=== PATIENT | female | born 1930 | race Caucasian/White ===

== ENCOUNTER 2018-07-13 06:42 | Inpatient (IN) ==
[2018-07-13] MEDS ORDERED: Sod Chloride 0.9% Inj 1,000 ML IV.CONT SCH (06:45)
[2018-07-13] MEDS ORDERED: Pantoprazole Inj 80 MG in Sodium Chlor 0.9% Inj 100 ML IV.CONT SCH (07:00)
--- NOTE | 2018-07-13 07:08 | ED ---
HPI General Chief Complaint: Altered Mental Status Stated Complaint: AMS/Stroke Alert Time Seen by Provider: 07/13/18 06:44 Source: family, EMS and old records reviewed Mode of arrival: EMS Limitations: altered mental status History of Present Illness HPI Narrative: Patient apparently lives with daughter, she last saw patient normal around 5:00 PM yesterday. Patient this morning was non-conversive, able to follow directions however unable to speak, also has apparent lateralizing weakness as well that is new....per ems normal glucose 84?? Onset (ago): unknown Timing confirmed by: family member Location: speech History of same: No Severity: severe Relieving factors: none Exacerbating factors: none Associated symptoms: weakness (rle) Treatments Prior to Arrival: none Related Data Allergies Allergy/AdvReac Type Severity Reaction Status Date / Time diatrizoate meglumine Allergy Severe Hives Unverified 07/08/17 01:49 gadobenic acid Allergy Severe Hives Unverified 07/08/17 01:49 gadodiamide Allergy Severe Hives Unverified 07/08/17 01:49 gadoteridol Allergy Severe Hives Unverified 07/08/17 01:49 iodixanol Allergy Severe Hives Unverified 07/08/17 01:49 iohexol Allergy Severe Hives Unverified 07/08/17 01:49 hydrocortisone Allergy Intermediate HIVES Unverified 07/08/17 01:49 Review of Systems ROS: all other systems reviewed are negative PMFSH History History Provided By: Patient Medical History Medical History Diabetes (Acute) ICD (implantable cardioverter-defibrillator) in place (Acute) Pacemaker (Acute) Surgical history unknown (Acute) Exam Narrative Exam Narrative: GENERAL: Elderly female SKIN: Warm and dry. HEAD: Atraumatic. Normocephalic. EYES: Pupils equal and round. No scleral icterus. No injection or drainage. ENT: No nasal bleeding or discharge. Mucous membranes pink and moist. NECK: Trachea midline. No JVD. CARDIOVASCULAR: Regular rate and rhythm. no rubs or gallops RESPIRATORY: No accessory muscle use. Clear to auscultation. Breath sounds equal bilaterally. GASTROINTESTINAL: Abdomen soft, non-tender, nondistended. No rebound or guarding MUSCULOSKELETAL: Extremities without clubbing, cyanosis, or edema. No obvious deformities. NEUROLOGICAL: Awake, initially came in with global mutism, but upon return from CT patient was able to answer questions although in a slow and slurred manner. Speech is still intelligible definitely appropriate but moderate to severe slurred speech with moderate aphasia . No obvious cranial nerve deficits. Left upper left lower and right upper extremity although globally weak still able to lift against gravity unable to maintain him upright without drift, however, right lower extremity has increased weakness patient is having very difficult time just barely elevating it off the gurney. PSYCHIATRIC: Appropriate mood and affect; insight and judgment normal. Course Initial Documented Vital Signs Pulse Rate 82 07/13/18 06:45 Respiratory Rate 17 07/13/18 06:45 Pulse Oximetry 97 07/13/18 06:45 Last Documented Vital Signs Pulse Rate 82 07/13/18 06:45 Respiratory Rate 17 07/13/18 06:45 Pulse Oximetry 97 07/13/18 06:45 Critical Care Time Critical Care Time: Yes Total Critical Care Time: 45 Attestation: Aggregate critical care time was 45 minutes. Time to perform other separately billable procedures was not included in the critical care time. My time did not include minutes spent treating any other patients simultaneously or on activities that did not directly contribute to the patient's treatment. The services I provided to this patient were to treat and/or prevent clinically significant deterioration due to stroke symptoms I provided critical care services requiring my management, as noted below: Chart data review, documentation time, medication orders and management, vital sign assessments/reviewing monitor data, ordering and reviewing lab tests, ordering and interpreting/reviewing x-rays and diagnostic studies, care of the patient and discussion of the patient with the admitting physicians. NIH Stroke Scale NIHSS Time Completed NIHSS Time Completed: 07:00 NIH Stroke Scale Level of Consciousness: 0-Alert Orientation Questions: 2-Neither task correct Responds to Commands: 0-Both tasks correct Gaze Eye Movement: 0-Horizontal movement WNL Visual Holt: 0-No visual field defect Facial Movement: 1-Minor facial palsy Motor Functions Arm LEFT: 0-No drift Motor Functions Arm RIGHT: 0-No drift Motor Functions Leg LEFT: 0-No drift Motor Functions Leg RIGHT: 1-Drift before 5 seconds Limb Ataxia: 1-Ataxia in one limb Sensory Loss: 0-No sensory loss Best Language: 2-Severe aphasia Articulation: 2-Severe dysarthria Extinction or Inattention Sensory: 0-Absent Total: 9 Medical Decision Making MDM Narrative Medical decision making narrative: patient is not a tpa candidate due to out of range (time frame), additionally patient arrived with dry blood in mouth without tongue trauma (presumed ugi bleed) case d/w dr francois Medical Screen Exam Complete: Yes Emergency Medical Condition: Yes Differential Diagnosis Differential Diagnosis: Intracranial hemorrhage versus ischemic CVA versus sepsis versus electrolyte imbalance versus STEMI versus non-STEMI Medical Records Medical records reviewed: Yes I reviewed the patient's medical records. Patient has a past medical history significant for hypertension diabetes cholesterol and basal cell skin cancer status post removal Lab Data Lab results reviewed: Yes I reviewed the patient's lab results. Result diagrams: 07/13/18 06:55 07/13/18 06:55 Lab Results 07/13/18 07/13/18 07/13/18 Range/Units 06:55 06:55 06:55 WBC (4.0-11.0) th/mm3 RBC (4.00-5.30) mil/mm3 Hgb (11.6-15.3) gm/dL POC Hgb (Calc) 12.9 (11.6-15.3) g/dL Hct (35.0-46.0) % POC Hct 38.0 (35-46.0) % MCV (80.0-100.0) fL MCH (27.0-34.0) pg MCHC (32.0-36.0) % RDW (11.6-17.2) % Plt Count (150-450) th/mm3 MPV (7.0-11.0) fL Neut % (Auto) (16.0-70.0) % Lymph % (Auto) (9.0-44.0) % [place] % (Auto) (0.0-8.0) % Eos % (Auto) (0.0-4.0) % Baso % (Auto) (0.0-2.0) % Neut # (Auto) (1.8-7.7) th/mm3 Lymph # (Auto) (1.0-4.8) th/mm3 [place] # (Auto) (0.0-0.9) th/mm3 Eos # (Auto) (0.0-0.4) th/mm3 Baso # (Auto) (0.0-0.2) th/mm3 WBC Differential Differential Comment PT 11.0 (9.8-11.6) sec INR 1.1 Ratio APTT 25.8 (24.3-30.1) sec POC Sodium 137 (137-144) mmol/L Sodium 138 (136-145) meq/L POC Potassium 4.2 (3.6-5.0) mmol/L Potassium 4.4 (3.5-5.1) meq/L POC Chloride 102 (102-111) mmol/L Chloride 105 (98-107) meq/L Carbon Dioxide 23.3 (21.0-32.0) meq/L Anion Gap 10 (5-15) meq/L POC BUN 72 H (5-21) mg/dL BUN 76 H (7-18) mg/dL Creatinine 2.12 H (0.50-1.00) mg/dL POC Creatinine 2.2 H (0.6-1.3) mg/dL Estimated GFR 22 L (>89) mL/min POC Glucose 50 L (68-110) mg/dL Random Glucose 49 L* (74-106) mg/dL Calcium 8.2 L (8.5-10.1) mg/dL Total Creatine Kinase 77 (26-192) U/L Troponin I Less than 0.02 L (0.02-0.05) ng/mL Blood Type O Positive 07/13/18 Range/Units 06:55 WBC 24.1 H (4.0-11.0) th/mm3 RBC 4.48 (4.00-5.30) mil/mm3 Hgb 13.0 (11.6-15.3) gm/dL POC Hgb (Calc) (11.6-15.3) g/dL Hct 39.2 (35.0-46.0) % POC Hct (35-46.0) % MCV 87.6 (80.0-100.0) fL MCH 29.0 (27.0-34.0) pg MCHC 33.1 (32.0-36.0) % RDW 16.7 (11.6-17.2) % Plt Count 165 (150-450) th/mm3 MPV 9.3 (7.0-11.0) fL Neut % (Auto) 85.0 H (16.0-70.0) % Lymph % (Auto) 7.7 L (9.0-44.0) % [place] % (Auto) 7.1 (0.0-8.0) % Eos % (Auto) 0.1 (0.0-4.0) % Baso % (Auto) 0.1 (0.0-2.0) % Neut # (Auto) 20.5 H (1.8-7.7) th/mm3 Lymph # (Auto) 1.9 (1.0-4.8) th/mm3 [place] # (Auto) 1.7 H (0.0-0.9) th/mm3 Eos # (Auto) 0.0 (0.0-0.4) th/mm3 Baso # (Auto) 0.0 (0.0-0.2) th/mm3 WBC Differential . Differential Comment Auto diff final PT (9.8-11.6) sec INR Ratio APTT (24.3-30.1) sec POC Sodium (137-144) mmol/L Sodium (136-145) meq/L POC Potassium (3.6-5.0) mmol/L Potassium (3.5-5.1) meq/L POC Chloride (102-111) mmol/L Chloride (98-107) meq/L Carbon Dioxide (21.0-32.0) meq/L Anion Gap (5-15) meq/L POC BUN (5-21) mg/dL BUN (7-18) mg/dL Creatinine (0.50-1.00) mg/dL POC Creatinine (0.6-1.3) mg/dL Estimated GFR (>89) mL/min POC Glucose (68-110) mg/dL Random Glucose (74-106) mg/dL Calcium (8.5-10.1) mg/dL Total Creatine Kinase (26-192) U/L Troponin I (0.02-0.05) ng/mL Blood Type Imaging Data Radiologist's impression: Chest X-Ray 07/13/18 06:44 CONCLUSION: Clear lungs. Head CT 07/13/18 06:44 CONCLUSION: 1. Patchy white matter disease likely related to chronic microvascular ischemic disease. 2. No hemorrhage. 3. Report called by Dr. Méndez to Dr. Cox at 7:09 AM on July 13, 2018. Discharge Plan Discharge Disposition Patient Disposition: 30 Still Patient Discharge Condition Condition: Fair Discharge Details Diagnosis: Altered mental status, Aphasia due to acute stroke, Sepsis, Hypoglycemia Physicians Team ED Provider: Danny Cox Primary Care Provider: UNKNOWN, Status ED Status: With Doctor
--- NOTE | 2018-07-13 07:11 | CT ---
EXAM DATE: 07/13/2018 7:06 AM EDT AGE/SEX: 87 years / Female INDICATIONS: Stroke alert. Lethargy. Expressive aphasia. CLINICAL DATA: This is the patient's initial encounter. Patient reports that signs and symptoms have been present for 1 day and indicates a pain score of 0/10. MEDICAL/SURGICAL HISTORY: Diabetes. Cardiovascular disease. Pacemaker. RADIATION DOSE: 35.54 CTDI (mGy) COMPARISON: No prior exams available for comparison. TECHNIQUE: CT of the head without contrast. Using automated exposure control and adjustment of the mA and/or kV according to patient size, radiation dose was kept as low as reasonably achievable to ob tain optimal diagnostic quality images. DICOM format image data is available electronically for revi ew and comparison. FINDINGS: There are bilateral carotid artery and vertebral artery calcifications. Ventricles and cisterns are o f normal size and configuration. Patchy areas of decreased attenuation in the bilateral centrum semio tim and periventricular white matter identified, most likely on the basis of chronic microvascular i schemic disease. There are no definite signs of acute infarct, intracranial hemorrhage, or mass. No f ractures. CONCLUSION: 1. Patchy white matter disease likely related to chronic microvascular ischemic disease. 2. No hemorrhage. 3. Report called by Dr. Méndez to Dr. Cox at 7:09 AM on July 13, 2018. Electronically signed by: Delfin Méndez MD 07/13/2018 7:09 AM EDT
[2018-07-13 07:15] LABS: Baso % (Auto) 0.1 % (0.0-2.0); Eos % (Auto) 0.1 % (0.0-4.0); Hematocrit 39.2 % (35.0-46.0); Lymph # (Auto) 1.9 th/mm3 (1.0-4.8); Lymph % (Auto) 7.7 % (9.0-44.0); Mean Corpuscular HGB Conc 33.1 % (32.0-36.0); Mean Corpuscular Volume 87.6 fL (80.0-100.0); Mean Platelet Volume 9.3 fL (7.0-11.0); Mono # (Auto) 1.7 th/mm3 (0.0-0.9); Mono % (Auto) 7.1 % (0.0-8.0); Neut # (Auto) 20.5 th/mm3 (1.8-7.7); Platelet Count 165 th/mm3 (150-450); Red Blood Count 4.48 mil/mm3 (4.00-5.30); Red Cell Distribution Width 16.7 % (11.6-17.2); White Blood Count 24.1 th/mm3 (4.0-11.0)
[2018-07-13 07:26] LABS: Activated Partial Thrombo Time 25.8 sec (24.3-30.1); INR 1.1 Ratio
--- NOTE | 2018-07-13 07:28 | XR ---
EXAM DATE: 07/13/2018 7:23 AM EDT AGE/SEX: 87 years / Female INDICATIONS: Stroke alert. CLINICAL DATA: This is the patient's initial encounter. Patient reports that signs and symptoms have been present for 1 day and indicates a pain score of Nonresponsive. MEDICAL/SURGICAL HISTORY: Non-responsive. Non-responsive. COMPARISON: No prior exams available for comparison. FINDINGS: Cardiomegaly, pacer/ICD device from a left subclavian transvenous approach, sternotomy wires and CABG markers are noted as well as a cardiac valvular prosthesis. The lungs are clear. CONCLUSION: Clear lungs. Electronically signed by: Delfin Méndez MD 07/13/2018 7:27 AM EDT
[2018-07-13] MEDS ORDERED: Vancomycin Inj 1,000 MG in Sodium Chlor 0.9% Inj 250 ML IV.SIG STA (07:29)
[2018-07-13] MEDS ORDERED: Piperacil/Tazo 4.5 GM Premix 4.5 GM/100 ML BAG IV.SIG STA (07:29)
[2018-07-13 07:37] LABS: Anion Gap 10 meq/L (5-15); Blood Urea Nitrogen 76 mg/dL (7-18); Calcium 8.2 mg/dL (8.5-10.1); Carbon Dioxide 23.3 meq/L (21.0-32.0); Chloride 105 meq/L (98-107); Glomerular Filtration Rate 22 mL/min (>89); Potassium 4.4 meq/L (3.5-5.1); Sodium 138 meq/L (136-145)
[2018-07-13 07:44] LABS: Creatine Kinase 77 U/L (26-192)
[2018-07-13 07:48] LABS: Glucose,Random 49 mg/dL (74-106)
[2018-07-13 08:10] LABS: Bacteria,Urine Many /hpf; Bilirubin,Urine Negative (Negative); Clarity,Urine Cloudy (Clear); Color,Urine Red (Yellw/Straw); Glucose,Urine (UA) Negative (Negative); Leukocyte Esterase,Urine Large (Negative); Nitrite,Urine Negative (Negative); Specific Gravity,Urine 1.006 (1.002-1.035); Squamous Epithelial Cell,Urine <1 /hpf (0-5)
[2018-07-13] MEDS ORDERED: Bisacodyl 10 MG Supp RECTAL PRN (09:12)
--- NOTE | 2018-07-13 09:20 | P.CONNEU ---
History of Present Illness Service: Neurology Primary Care Provider: UNKNOWN Chief Complaint: Possible stroke History of Present Illness: 87-year-old female brought in for evaluation of difficulty with speech and weakness. In the emergency department patient's symptoms had improved in addition her glucose was found to be 49 per ER MD. Based on resolution of symptoms consider IV TPA candidate. CT brain scan demonstrated white matter changes no acute hemorrhage. Denies any history of stroke states she takes Plavix daily. Is followed by cardiology. Has a pacemaker defibrillator. Denies any headache fever night sweats chills. States she gets around using a power chair. Was found to have leukocytosis, and renal failure. Review of Systems All other systems reviewed negative except as stated in HPI PMFSH - History History Provided By: Patient - Medical History Medical History: Medical History (Last Reviewed 07/13/18 @ 07:05 by Danny Cox) Diabetes ICD (implantable cardioverter-defibrillator) in place Pacemaker Surgical history unknown Medications and Allergies Active Medications: Active Medications Al Hydroxide/Mg Hydroxide (Milk Of Magnesia Liq) 30 ml PO Q12H PRN PRN Reason: Mild Constipation Bisacodyl (Dulcolax Supp) 10 mg RECTAL DAILY PRN PRN Reason: SEVERE CONSITIPATION Pantoprazole Sodium 80 mg/ (Sodium Chloride) 100 mls @ 10 mls/hr IV.CONT CONT ALEKSANDR Sodium Chloride (Ns Inj) 1,000 mls @ 70 mls/hr IV.CONT .[id number] ALEKSANDR Stop: 07/13/18 21:02 Last Admin: 07/13/18 06:55 Dose: 70 mls/hr Sodium Chloride (Ns Inj) 1,000 mls @ 100 mls/hr IV.CONT .Q10H ALEKSANDR Lactulose (Lactulose Liq) 30 ml PO DAILY PRN PRN Reason: SEVERE CONSITIPATION Senna/Docusate Sodium (Bernadette-Colace) 1 tab PO BID ALEKSANDR Sennosides (Senokot) 17.2 mg PO Q12H PRN PRN Reason: Moderate Constipation Sodium Chloride (Ns Flush) 2 ml IV.FLUSH PRN PRN PRN Reason: FLUSH AFTER USING IV ACCESS Allergies Allergy/AdvReac Type Severity Reaction Status Date / Time diatrizoate meglumine Allergy Severe Hives Verified 07/13/18 08:05 gadobenic acid Allergy Severe Hives Verified 07/13/18 08:05 gadodiamide Allergy Severe Hives Verified 07/13/18 08:05 gadoteridol Allergy Severe Hives Verified 07/13/18 08:05 iodixanol Allergy Severe Hives Verified 07/13/18 08:05 iohexol Allergy Severe Hives Verified 07/13/18 08:05 hydrocortisone Allergy Intermediate HIVES Verified 07/13/18 08:05 Home Medications Medication Instructions Recorded Confirmed Type bumetanide 1 mg PO DAILY 07/13/18 07/13/18 History calcitriol 0.25 mcg PO Q OTHER DAY 07/13/18 07/13/18 History clopidogrel 75 mg PO DAILY 07/13/18 07/13/18 History glipizide 5 mg PO DAILY 07/13/18 07/13/18 History losartan 100 mg PO DAILY 07/13/18 07/13/18 History metoprolol tartrate 37.5 mg PO DAILY 07/13/18 07/13/18 History nateglinide 120 mg PO TID 07/13/18 07/13/18 History omeprazole 20 mg PO DAILY 07/13/18 07/13/18 History potassium citrate 10 meq PO DAILY 07/13/18 07/13/18 History rosuvastatin [Crestor] 10 mg PO DAILY 07/13/18 07/13/18 History Exam Vital signs: Vital Signs 07/13/18 06:45 Pulse Rate 82 Respiratory Rate 17 Pulse Oximetry 97 Intake & Output 07/12/18 07/13/18 07/13/18 18:59 06:59 18:59 Weight 75 kg Narrative: Awake alert oriented 2-3, slow speech, follows one-step midline motor crossing request, OU surgical cataract extraction changes, no facial asymmetry tongue midline, able raise all 4 extremity gravity with generalized weakness and strength 4 out of 5. Slow fine finger movements in both hands, reduce pinprick stocking glove distribution reflexes trace plantarflex her no clonus elicited. Gait not assessed secondary fall risk - Constitutional no acute distress - Routine HEENT Exam Head: Present: normocephalic Eye: Present: EOMI Results - Labs CBC & Chem 7: 07/13/18 06:55 07/13/18 06:55 Labs: Laboratory Results - last 24 hr 07/13/18 07/13/18 07/13/18 06:55 06:55 06:55 WBC RBC Hgb POC Hgb (Calc) 12.9 Hct POC Hct 38.0 MCV MCH MCHC RDW Plt Count MPV Neut % (Auto) Lymph % (Auto) [place] % (Auto) Eos % (Auto) Baso % (Auto) Neut # (Auto) Lymph # (Auto) [place] # (Auto) Eos # (Auto) Baso # (Auto) WBC Differential Differential Comment PT 11.0 INR 1.1 APTT 25.8 POC Sodium 137 Sodium 138 POC Potassium 4.2 Potassium 4.4 POC Chloride 102 Chloride 105 Carbon Dioxide 23.3 Anion Gap 10 POC BUN 72 H BUN 76 H Creatinine 2.12 H POC Creatinine 2.2 H Estimated GFR 22 L POC Glucose 50 L Random Glucose 49 L* Lactic Acid Calcium 8.2 L Total Creatine Kinase 77 Troponin I Less than 0.02 L Urine Color Urine Clarity Urine pH Ur Specific [place] Urine Protein Urine Glucose (UA) Urine Ketones Urine Occult Blood Urine Nitrate Urine Bilirubin Urine Urobilinogen Ur Leukocyte Esterase Urine RBC Urine WBC Urine WBC Clumps Ur Squamous Epith Cells Urine Bacteria Micro UA Comment Urine Culture Comments Blood Type O Positive Antibody Screen Negative 07/13/18 07/13/18 07/13/18 06:55 07:30 07:45 WBC 24.1 H RBC 4.48 Hgb 13.0 POC Hgb (Calc) Hct 39.2 POC Hct MCV 87.6 MCH 29.0 MCHC 33.1 RDW 16.7 Plt Count 165 MPV 9.3 Neut % (Auto) 85.0 H Lymph % (Auto) 7.7 L [place] % (Auto) 7.1 Eos % (Auto) 0.1 Baso % (Auto) 0.1 Neut # (Auto) 20.5 H Lymph # (Auto) 1.9 [place] # (Auto) 1.7 H Eos # (Auto) 0.0 Baso # (Auto) 0.0 WBC Differential . Differential Comment Auto diff final PT INR APTT POC Sodium Sodium POC Potassium Potassium POC Chloride Chloride Carbon Dioxide Anion Gap POC BUN BUN Creatinine POC Creatinine Estimated GFR POC Glucose Random Glucose Lactic Acid 1.9 Calcium Total Creatine Kinase Troponin I Urine Color Red Urine Clarity Cloudy H Urine pH 6.0 Ur Specific [place] 1.006 Urine Protein Negative Urine Glucose (UA) Negative Urine Ketones Negative Urine Occult Blood Moderate H Urine Nitrate Negative Urine Bilirubin Negative Urine Urobilinogen Less than 2 Ur Leukocyte Esterase Large H Urine RBC 15 H Urine WBC Urine WBC Clumps Many H Ur Squamous Epith Cells <1 Urine Bacteria Many H Micro UA Comment Cath-culture ind Urine Culture Comments Cath-cult indicated Blood Type Antibody Screen 07/13/18 08:30 WBC RBC Hgb POC Hgb (Calc) Hct POC Hct MCV MCH MCHC RDW Plt Count MPV Neut % (Auto) Lymph % (Auto) [place] % (Auto) Eos % (Auto) Baso % (Auto) Neut # (Auto) Lymph # (Auto) [place] # (Auto) Eos # (Auto) Baso # (Auto) WBC Differential Differential Comment PT INR APTT POC Sodium Sodium POC Potassium Potassium POC Chloride Chloride Carbon Dioxide Anion Gap POC BUN BUN Creatinine POC Creatinine Estimated GFR POC Glucose 209 H Random Glucose Lactic Acid Calcium Total Creatine Kinase Troponin I Urine Color Urine Clarity Urine pH Ur Specific [place] Urine Protein Urine Glucose (UA) Urine Ketones Urine Occult Blood Urine Nitrate Urine Bilirubin Urine Urobilinogen Ur Leukocyte Esterase Urine RBC Urine WBC Urine WBC Clumps Ur Squamous Epith Cells Urine Bacteria Micro UA Comment Urine Culture Comments Blood Type Antibody Screen - Imaging Impressions Chest X-Ray 07/13/18 06:44 CONCLUSION: Clear lungs. Head CT 07/13/18 06:44 CONCLUSION: 1. Patchy white matter disease likely related to chronic microvascular ischemic disease. 2. No hemorrhage. 3. Report called by Dr. Méndez to Dr. Cox at 7:09 AM on July 13, 2018. 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 She certainly has multiple risk factors for stroke Recommendations EEG Cardiology evaluation for interrogation of her defibrillator pacemaker. In consideration of oral anticoagulant Carotid ultrasound Follow exam (3) Altered mental status Qualifiers: Altered mental status type: unspecified Qualified Code(s): R41.82 - Altered mental status, unspecified (4) Sepsis Qualifiers: Sepsis type: sepsis due to unspecified organism Qualified Code(s): A41.9 - Sepsis, unspecified organism
[2018-07-13 09:45] LABS: Triglycerides 75 mg/dL (42-150)
--- NOTE | 2018-07-13 09:50 | P.HPIM ---
History of Present Illness Primary Care Physician: UNKNOWN Chief Complaint: Possible stroke Inpatient Certification: I certify that the inpatient services were ordered in accordance with Medicare regulations governing the order. This includes certification that hospital inpatient services are reasonable and necessary and in the case of services not specified as inpatient-only under 42 CFR 419.22(n), that they are appropriately provided as inpatient services in accordance to with the 2-midnight benchmark under 43 CFR 412.3(e) Estimated Total Length of Stay (Days): 3 Plans for Post Hospital Care: [facility] - History History Provided By: Patient - Medical History Medical History: Medical History (Last Reviewed 07/13/18 @ 09:22 by Ricci Coelho) Diabetes ICD (implantable cardioverter-defibrillator) in place Pacemaker Surgical history unknown Medications and Allergies Active Medications: Active Medications Al Hydroxide/Mg Hydroxide (Milk Of Magnesia Liq) 30 ml PO Q12H PRN PRN Reason: Mild Constipation Bisacodyl (Dulcolax Supp) 10 mg RECTAL DAILY PRN PRN Reason: SEVERE CONSITIPATION Dextrose (D50w Vial) 50 ml IV.PUSH UNSCH PRN PRN Reason: PER HYPOGLYCEMIA PROTOCOL Glucagon (Glucagon Inj) 1 mg OTHER PRN PRN PRN Reason: for Hypoglycemia Protocol Pantoprazole Sodium 80 mg/ (Sodium Chloride) 100 mls @ 10 mls/hr IV.CONT CONT ALEKSANDR Sodium Chloride (Ns Inj) 1,000 mls @ 70 mls/hr IV.CONT .[id number] ALEKSANDR Stop: 07/13/18 21:02 Last Admin: 07/13/18 06:55 Dose: 70 mls/hr Sodium Chloride (Ns Inj) 1,000 mls @ 100 mls/hr IV.CONT .Q10H ALEKSANDR Insulin Aspart (Novolog Insulin Correctional Sugar Inj) 0 unit SQ ACHS ALEKSANDR; Protocol Lactulose (Lactulose Liq) 30 ml PO DAILY PRN PRN Reason: SEVERE CONSITIPATION Senna/Docusate Sodium (Bernadette-Colace) 1 tab PO BID ALEKSANDR Sennosides (Senokot) 17.2 mg PO Q12H PRN PRN Reason: Moderate Constipation Sodium Chloride (Ns Flush) 2 ml IV.FLUSH PRN PRN PRN Reason: FLUSH AFTER USING IV ACCESS Allergies Allergy/AdvReac Type Severity Reaction Status Date / Time diatrizoate meglumine Allergy Severe Hives Verified 07/13/18 08:05 gadobenic acid Allergy Severe Hives Verified 07/13/18 08:05 gadodiamide Allergy Severe Hives Verified 07/13/18 08:05 gadoteridol Allergy Severe Hives Verified 07/13/18 08:05 iodixanol Allergy Severe Hives Verified 07/13/18 08:05 iohexol Allergy Severe Hives Verified 07/13/18 08:05 hydrocortisone Allergy Intermediate HIVES Verified 07/13/18 08:05 Home Medications Medication Instructions Recorded Confirmed Type bumetanide 1 mg PO DAILY 07/13/18 07/13/18 History calcitriol 0.25 mcg PO Q OTHER DAY 07/13/18 07/13/18 History clopidogrel 75 mg PO DAILY 07/13/18 07/13/18 History glipizide 5 mg PO DAILY 07/13/18 07/13/18 History losartan 100 mg PO DAILY 07/13/18 07/13/18 History metoprolol tartrate 37.5 mg PO DAILY 07/13/18 07/13/18 History nateglinide 120 mg PO TID 07/13/18 07/13/18 History omeprazole 20 mg PO DAILY 07/13/18 07/13/18 History potassium citrate 10 meq PO DAILY 07/13/18 07/13/18 History rosuvastatin [Crestor] 10 mg PO DAILY 07/13/18 07/13/18 History Exam Vital signs: Vital Signs 07/13/18 06:45 Pulse Rate 82 Respiratory Rate 17 Pulse Oximetry 97 Intake & Output 07/12/18 07/13/18 07/13/18 18:59 06:59 18:59 Weight 75 kg Results - Labs CBC & Chem 7: 07/13/18 06:55 07/13/18 06:55 Labs: Short CBC 07/13/18 Range/Units 06:55 WBC 24.1 H (4.0-11.0) th/mm3 Hgb 13.0 (11.6-15.3) gm/dL Hct 39.2 (35.0-46.0) % Plt Count 165 (150-450) th/mm3 BMP 07/13/18 06:55 Sodium 138 Potassium 4.4 Chloride 105 Carbon Dioxide 23.3 BUN 76 H Creatinine 2.12 H Calcium 8.2 L Cardiac Enzymes 07/13/18 Range/Units 06:55 Total Creatine Kinase 77 (26-192) U/L Troponin I Less than 0.02 L (0.02-0.05) ng/mL Urine 07/13/18 Range/Units 07:30 Urine Color Red (Yellw/Straw) Urine Clarity Cloudy H (Clear) Urine pH 6.0 (5.0-8.5) Ur Specific [place] 1.006 (1.002-1.035) Urine Protein Negative (Neg-Trace) mg/dL Urine Glucose (UA) Negative (Negative) mg/dL - Imaging Impressions Chest X-Ray 07/13/18 06:44 CONCLUSION: Clear lungs. Head CT 07/13/18 06:44 CONCLUSION: 1. Patchy white matter disease likely related to chronic microvascular ischemic disease. 2. No hemorrhage. 3. Report called by Dr. Méndez to Dr. Cox at 7:09 AM on July 13, 2018. Caprini VTE Risk Assessment Caprini Risk Assessment Model: Point Value = 1 Point Value = 2 Point Value = 3 Point Value = 5 Age 41-60 Minor surgery BMI > 25 kg/m2 Swollen legs Varicose veins or History of unexplained or recurrent spontaneous Oral contraceptives or hormone replacement Sepsis (< 1 month) Serious lung disease, including pneumonia (< 1 month) Abnormal pulmonary function Acute myocardial infarction Congestive heart failure (< 1 month) History of inflammatory bowel disease Medical patient at bed rest Age 61-74 Arthroscopic surgery Major open surgery (> 45 min) Laparoscopic surgery (> 45 min) Malignancy Confined to bed (> 72 hours) Immobilizing plaster cast Central venous access Age >= 75 History of VTE Family history of VTE Factor V Leiden Prothrombin [id number] Lupus anticoagulant Anticardiolipin antibodies Elevated serum homocysteine Heparin-induced thrombocytopenia Other congenital or acquired thrombophilia Stroke (< 1 month) Elective arthroplasty Hip, pelvis, or leg fracture Acute spinal cord injury (< 1 month) Prophylaxis Regimen: Total Risk Factor Score Risk Level Prophylaxis Regimen 0-1 Low Early ambulation 2 Moderate Order ONE of the following: *Sequential Compression Device (SCD) *Heparin 5000 units SQ BID 3-4 Higher Order ONE of the following medications: *Heparin 5000 units SQ TID *Enoxaparin/Lovenox 40 mg SQ daily (WT < 150 kg, CrCl > 30 mL/min) *Enoxaparin/Lovenox 30 mg SQ daily (WT < 150 kg, CrCl > 10-29 mL/min) *Enoxaparin/Lovenox 30 mg SQ BID (WT < 150 kg, CrCl > 30 mL/min) AND/OR *Sequential Compression Device (SCD) 5 or more Highest Order ONE of the following medications: *Heparin 5000 units SQ TID (Preferred with Epidurals) *Enoxaparin/Lovenox 40 mg SQ daily (WT < 150 kg, CrCl > 30 mL/min) *Enoxaparin/Lovenox 30 mg SQ daily (WT < 150 kg, CrCl > 10-29 mL/min) *Enoxaparin/Lovenox 30 mg SQ BID (WT < 150 kg, CrCl > 30 mL/min) AND *Sequential Compression Device (SCD)
[2018-07-13 10:09] LABS: Chol/HDL Ratio 1.85 Ratio; HDL Cholesterol 26.9 mg/dL (40.0-60.0); LDL Cholesterol,Calculated 8 mg/dL (0-99); Vitamin B12 1477 pg/mL (193-986)
--- NOTE | 2018-07-13 12:11 | US ---
EXAM DATE: 07/13/2018 12:05 PM EDT AGE/SEX: 87 years / Female INDICATIONS: Aphasia. Weakness. CLINICAL DATA: This is the patient's initial encounter. Patient reports that signs and symptoms have been present for 1 day and indicates a pain score of 0/10. MEDICAL/SURGICAL HISTORY: Diabetes. Pacemaker defibrillator. Plavix therapy. Diabetic periphera l neuropathy. . Pacemaker placement. Cataract extraction. COMPARISON: No prior exams available for comparison. VELOCITY PARAMETERS: ICA/CCA Ratio: Right N/A , Left 2.2 ICA: Right N/A cm/sec, Left 129 cm/sec CCA: Right 56 cm/sec, Left 58 cm/sec ECA: Right 68 cm/sec, Left 52 cm/sec Vertebral: Right 59 cm/sec antegrade, Left 89 cm/sec antegrade FINDINGS: Right Carotid: Bulky calcified plaque extending from the carotid bulb to the internal carotid origin . No flow is demonstrated in the internal carotid artery. Left Carotid: Focal moderate to severe stenosis of the distal common carotid artery secondary to non calcified plaque with elevated velocities. Plaque is also demonstrated in the carotid bulb extending to the internal carotid origin. Other: None. CONCLUSION: 1. 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 2. Left Internal Carotid Artery: Focal moderate to severe stenosis of the distal common carotid amanuel katy secondary to noncalcified plaque. Moderate, 50-69%, stenosis of the internal carotid artery. Con yield loss inspector CTA examination for better evaluation. Patient may be a candidate for carotid intervention give n the tandem lesions and contralateral occlusion. Electronically signed by: Hipolito Brown MD 07/13/2018 12:09 PM EDT
--- NOTE | 2018-07-13 12:53 | XR ---
EXAM DATE: 07/13/2018 12:35 PM EDT AGE/SEX: 87 years / Female INDICATIONS: Post port placement. CLINICAL DATA: This is the patient's initial encounter. Patient reports that signs and symptoms have been present for 1 day and indicates a pain score of 0/10. MEDICAL/SURGICAL HISTORY: None. Pacemaker. COMPARISON: C, CHEST 1V SINGLE AP, 07/13/2018. . FINDINGS: Right central line in right atrium. Pacer leads overlie right atrium and right ventricle as well as a n external pacer on the left. Previous mitral valve surgery. No consolidation or effusion. No pneumot horax. CONCLUSION: Right-sided port placement with tip in right atrium. No pneumothorax. Electronically signed by: Trever Badillo MD 07/13/2018 12:52 PM EDT
--- NOTE | 2018-07-13 13:00 | US ---
EXAM DATE: 07/13/2018 12:52 PM EDT AGE/SEX: 87 years / Female INDICATIONS: Hydronephrosis. CLINICAL DATA: This is the patient's initial encounter. Patient reports that signs and symptoms have been present for 1 day and indicates a pain score of 7/10. MEDICAL/SURGICAL HISTORY: . Diabetes. Pacemaker defibrillator. Plavix therapy. Diabetic periphe ral neuropathy. . Pacemaker placement. Cataract extraction. . Pacemaker placement. Cataract extracti on. COMPARISON: No prior exams available for comparison. MEASUREMENTS: Right Kidney:__8.6 x 4.5 x 5.5 cm Left Kidney:__8.7 x 4.1 x 4.5 cm FINDINGS: Right Kidney: Small cysts, no hydronephrosis. Left Kidney: Small cyst small cyst, no hydronephrosis. Bladder: Martel catheter is present. Bladder decompressed. Other: None. CONCLUSION: 1. No acute findings. Small bilateral renal cysts. No hydronephrosis. Bladder decompressed by Martel. Electronically signed by: Trever Badillo MD 07/13/2018 12:59 PM EDT
[2018-07-13] MEDS: Sod Chloride 0.9% Inj 1,000 ML IV.CONT SCH ×2 (14:07→22:22)
[2018-07-13 16:23] LABS: Hemoglobin A1c 7.3 % (4.3-6.0)
[2018-07-13] MEDS: Insulin NovoLOG Aspart Correctional Sugar Inj SQ SCH ×3 (17:03→22:15)
[2018-07-13] MEDS ORDERED: Vancomycin Consult Pharmacy OTHER PRN (17:22)
[2018-07-13] MEDS ORDERED: Sod Chloride 0.9% Inj 1,000 ML IV.SIG ONE ×3 (18:00→22:00)
[2018-07-13] MEDS: Piperacil/Tazo 3.375 GM Premix 50 ML IV.SIG SCH (18:05)
--- NOTE | 2018-07-13 18:39 | ECHRPT ---
Indication: CVA/TIA CONCLUSIONS The left ventricular systolic function is low normal with an estimated ejection fraction in the rang e of 50- 55%. Mitral valve annuloplasty ring noted. Trace mitral valve regurgitation. Trace aortic valve regurgitation. There is trace tricuspid valve regurgitation. There is a trace pericardial effusion present. BP: / HR: Rhythm: Sinus MEASUREMENTS (Male / Female) Normal Values Technical Quality:Fair 2D ECHO LV Diastolic Diameter PLAX 2.3 cm 4.2 - 5.9 / 3.9 - 5.3 cm LV Systolic Diameter PLAX 1.5 cm IVS Diastolic Thickness 0.9 cm 0.6 - 1.0 / 0.6 - 0.9 cm LVPW Diastolic Thickness 0.9 cm 0.6 - 1.0 / 0.6 - 0.9 cm LV Relative Wall Thickness 0.8 RV Internal Dim ED PLAX 2.5 cm LVOT Diameter 2.0 cm Aortic Root Diameter 3.0 cm LA Systolic Diameter LX 2.5 cm 3.0 - 4.0 / 2.7 - 3.8 cm M-MODE AV Cusp Separation MM 1.7 cm DOPPLER AV Peak Velocity 89.6 cm/s AV Peak Gradient 3.2 mmHg AV Mean Gradient 2.0 mmHg AV Velocity Time Integral 17.0 cm LVOT Peak Velocity 64.7 cm/s LVOT Peak Gradient 1.7 mmHg LVOT Velocity Time Integral 11.0 cm AV Area Cont Eq vti 2.0 cm AV Area Cont Eq pk 2.3 cm Mitral E Point Velocity 82.9 cm/s Mitral A Point Velocity 82.9 cm/s Mitral E to A Ratio 1.0 LV E' Lateral Velocity 6.5 cm/s Mitral E to LV E' Lateral Ratio 12.7 LV E' Septal Velocity 3.6 cm/s Mitral E to LV E' Septal Ratio 23.0 TR Peak Velocity 225.0 cm/s TR Peak Gradient 20.3 mmHg Right Atrial Pressure 10.0 mmHg Pulmonary Artery Systolic Pressu 30.3 mmHg Right Ventricular Systolic Press 30.3 mmHg PV Peak Velocity 42.9 cm/s PV Peak Gradient 0.7 mmHg FINDINGS LEFT VENTRICLE Normal left ventricular size. Wall thickness is normal. The left ventricular systolic function is low normal with an estimated ejection fraction in the rang e of 50- 55%. RIGHT VENTRICLE Normal right ventricular size and systolic function. A pacemaker wire is noted. LEFT ATRIUM The left atrial size is normal. RIGHT ATRIUM The right atrial size is normal. There is a pacemaker wire present in the right atrial cavity. ATRIAL SEPTUM No atrial level shunt is demonstrated by color flow Doppler interrogation. AORTA The aortic root and proximal ascending aorta are normal in size on limited imaging. MITRAL VALVE Mitral valve annuloplasty ring noted. No mitral valve stenosis. Trace mitral valve regurgitation. AORTIC VALVE Probable trileaflet aortic valve. Trace aortic valve regurgitation. No aortic valve stenosis. TRICUSPID VALVE Structurally normal tricuspid valve. There is trace tricuspid valve regurgitation. The estimated pulmonary arterial pressure is 30.3 mmHg. PULMONARY VALVE No pulmonary valve regurgitation or stenosis. VESSELS The inferior vena cava is normal in size. PERICARDIUM There is a trace pericardial effusion present. Francisco Melgar DO (Electronically Signed) Final Date:13 July 2018 18:38 Amended: 13 July 2018 20:37
--- NOTE | 2018-07-13 18:40 | P.HPCC ---
History of Present Illness Service: Critical care medicine Primary Care Physician: UNKNOWN Chief Complaint: Possible stroke History of Present Illness: This is an 87yF with history of prior bioprosthetic mitral valve replacement and prior CHF s/p AICD placement who presents with altered mental status from home. per report she had similar episode 3 days ago and was found to be hypoglycemic, but this resolved and she refused EMS transport to the hospital. today she was transported to ER where she had a glucose of 48 and given iv dextrose. after this her mentation improved. however, she was hypotensive and tachycardic. CT brain negative for acute findings. wbc demonstrates leukocytosis and patient febrile. u/a grossly positive and urine appears purulent. started on empiric abx. given gentle ivf hydration given history of CHF and started on norepinephrine for pressor support. per report from Dr. Melgar, her most recent echo had EF 50%. ROS essentially unobtainable due to her altered mentation, although she is alert enough to deny chest pain, shortness of breath. Inpatient Certification: I certify that the inpatient services were ordered in accordance with Medicare regulations governing the order. 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 ICD (implantable cardioverter-defibrillator) in place Pacemaker - Tobacco History Second Hand Smoke Exposure: Yes Tobacco Use In Past 30 Days: No Smoking Status: Never smoker - Alcohol History How Often Do You Have a Drink Containing Alcohol: Never - Substance Use History Substance History: No History of Abuse - Immunization History Tetanus Immunization: Unable to Assess Hx Influenza Vaccine This Season: Unable to Assess Medications and Allergies Active Medications: Active Medications Hydrocodone Bitart/Acetaminophen ([place] 5/325) 1 tab PO Q6H PRN PRN Reason: Pain 5-10 Last Admin: 07/13/18 18:05 Dose: 1 tab Al Hydroxide/Mg Hydroxide (Milk Of Magnesia Liq) 30 ml PO Q12H PRN PRN Reason: Mild Constipation Bisacodyl (Dulcolax Supp) 10 mg RECTAL DAILY PRN PRN Reason: SEVERE CONSITIPATION Dextrose (D50w Vial) 50 ml IV.PUSH UNSCH PRN PRN Reason: PER HYPOGLYCEMIA PROTOCOL Glucagon (Glucagon Inj) 1 mg OTHER PRN PRN PRN Reason: for Hypoglycemia Protocol Pantoprazole Sodium 80 mg/ (Sodium Chloride) 100 mls @ 10 mls/hr IV.CONT CONT ALEKSANDR Sodium Chloride (Ns Inj) 1,000 mls @ 70 mls/hr IV.CONT .[id number] [facility] Stop: 07/13/18 21:02 Last Infusion: 07/13/18 18:00 Dose: Infused Sodium Chloride (Ns Inj) 1,000 mls @ 100 mls/hr IV.CONT .Q10H [facility] Last Admin: 07/13/18 14:07 Dose: 100 mls/hr Norepinephrine Bitartrate (Levophed-Dextrose 4 Mg/250 Ml Drip) 4 mg in 250 mls @ 7.5 mls/hr IV.SIG TITRATE PRN; Protocol PRN Reason: Per Protocol Last Titration: 07/13/18 11:30 Dose: 3 mcg/min, 11.25 mls/hr Piperacillin/Tazobactam/Dextrose (Zosyn 3.375 Gm Premix) 50 mls @ 100 mls/hr IV.SIG Q8H [facility] Last Admin: 07/13/18 18:05 Dose: 100 mls/hr Insulin Aspart (Novolog Insulin Correctional Sugar Inj) [address] [facility]; Protocol Last Admin: 07/13/18 17:38 Dose: Not Given Lactulose (Lactulose Liq) 30 ml PO DAILY PRN PRN Reason: SEVERE CONSITIPATION Pharmacy Profile Note (Vancomycin Consult Pharmacy) 1 each OTHER UNSCH PRN PRN Reason: Pharmacy to dose Senna/Docusate Sodium (Bernadette-Colace) [address] [facility] Sennosides (Senokot) 17.2 mg PO Q12H PRN PRN Reason: Moderate Constipation Sodium Chloride (Ns Flush) 2 ml IV.FLUSH PRN PRN PRN Reason: FLUSH AFTER USING IV ACCESS Allergies Allergy/AdvReac Type Severity Reaction Status Date / Time diatrizoate meglumine Allergy Severe Hives Verified 07/13/18 08:05 gadobenic acid Allergy Severe Hives Verified 07/13/18 08:05 gadodiamide Allergy Severe Hives Verified 07/13/18 08:05 gadoteridol Allergy Severe Hives Verified 07/13/18 08:05 iodixanol Allergy Severe Hives Verified 07/13/18 08:05 iohexol Allergy Severe Hives Verified 07/13/18 08:05 hydrocortisone Allergy Intermediate HIVES Verified 07/13/18 08:05 Home Medications Medication Instructions Recorded Confirmed Type bumetanide 1 mg PO DAILY 07/13/18 07/13/18 History calcitriol 0.25 mcg PO Q OTHER DAY 07/13/18 07/13/18 History clopidogrel 75 mg PO DAILY 07/13/18 07/13/18 History glipizide 5 mg PO DAILY 07/13/18 07/13/18 History losartan 100 mg PO DAILY 07/13/18 07/13/18 History metoprolol tartrate 37.5 mg PO DAILY 07/13/18 07/13/18 History nateglinide 120 mg PO TID 07/13/18 07/13/18 History omeprazole 20 mg PO DAILY 07/13/18 07/13/18 History potassium citrate 10 meq PO DAILY 07/13/18 07/13/18 History rosuvastatin [Crestor] 10 mg PO DAILY 07/13/18 07/13/18 History Results - Labs CBC & Chem 7: 07/13/18 06:55 07/13/18 06:55 Labs: Short CBC 07/13/18 Range/Units 06:55 WBC 24.1 H (4.0-11.0) th/mm3 Hgb 13.0 (11.6-15.3) gm/dL Hct 39.2 (35.0-46.0) % Plt Count 165 (150-450) th/mm3 BMP 07/13/18 06:55 Sodium 138 Potassium 4.4 Chloride 105 Carbon Dioxide 23.3 BUN 76 H Creatinine 2.12 H Calcium 8.2 L Cardiac Enzymes 07/13/18 Range/Units 06:55 Total Creatine Kinase 77 (26-192) U/L Troponin I Less than 0.02 L (0.02-0.05) ng/mL Urine 07/13/18 Range/Units 07:30 Urine Color Red (Yellw/Straw) Urine Clarity Cloudy H (Clear) Urine pH 6.0 (5.0-8.5) Ur Specific [place] 1.006 (1.002-1.035) Urine Protein Negative (Neg-Trace) mg/dL Urine Glucose (UA) Negative (Negative) mg/dL - Imaging Impressions Chest X-Ray 07/13/18 06:44 CONCLUSION: Clear lungs. Head CT 07/13/18 06:44 CONCLUSION: 1. Patchy white matter disease likely related to chronic microvascular ischemic disease. 2. No hemorrhage. 3. Report called by Dr. Méndez to Dr. Cox at 7:09 AM on July 13, 2018. Carotid Doppler Study 07/13/18 09:21 CONCLUSION: 1. 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 2. Left Internal Carotid Artery: Focal moderate to severe stenosis of the distal common carotid arteries secondary to noncalcified plaque. Moderate, 50-69 %, stenosis of the internal carotid artery. Consider CTA examination for better evaluation. Patient may be a candidate for carotid intervention given the tandem lesions and contralateral occlusion. Abdomen/Bladder Ultrasound 07/13/18 11:42 CONCLUSION: 1. No acute findings. Small bilateral renal cysts. No hydronephrosis. Bladder decompressed by Martel. Chest X-Ray 07/13/18 12:17 CONCLUSION: Right-sided port placement with tip in right atrium. No pneumothorax. Exam Vital signs: Vital Signs 07/13/18 06:45 07/13/18 06:50 07/13/18 10:30 Temperature 35.9 C L Pulse Rate 82 79 70 Respiratory Rate 17 19 Blood Pressure 82/44 L Pulse Oximetry 97 07/13/18 11:24 07/13/18 11:43 07/13/18 12:32 Temperature Pulse Rate 53 L 70 78 Respiratory Rate 18 18 Blood Pressure 88/48 L 82/45 L 150/88 H Pulse Oximetry 96 97 07/13/18 15:20 07/13/18 16:00 Temperature 36.4 C Pulse Rate 80 Respiratory Rate 16 21 Blood Pressure 95/59 L Pulse Oximetry 95 Intake & Output 07/12/18 07/13/18 07/13/18 18:59 06:59 18:59 Intake Total 1350 / 1350 Output Total 450 / 450 Balance 900 / 900 Weight 75 kg 69 kg Intake: IV 1350 / 1350 NS Inj 1,000 ML @ 70 mls/hr IV. 1000 / 1000 CONT .[id number] ALEKSANDR Rx#:[id number] Output: Urine Amount (Catheter) 450 / 450 Indwelling Temp Sensing 450 / 450 Catheter Other: # Bowel Movements 0 Narrative: gen: elderly frail female, lying in bed, in distress. heent: perrl. nc. at. mmm. neck: no jvd. trachea midline. chest: equal chest rise. room air. cv: tachycardic rate, regular rhythm. hypotensive with map 48 mmHg. abd: soft, nontender, nondistended. no guarding. extr: no peripheral edema. distal pulses 2+. neuro: RASS -2. follows commands. confused. CAM+. oriented to person. Septic Shock Reassessment Septic shock perfusion: reassessment completed Caprini VTE Risk Assessment Caprini VTE Risk Assessment: Moderate/High Risk (score >= 2) Caprini Risk Assessment Model: Point Value = 1 Point Value = 2 Point Value = 3 Point Value = 5 Age 41-60 Minor surgery BMI > 25 kg/m2 Swollen legs Varicose veins or History of unexplained or recurrent spontaneous Oral contraceptives or hormone replacement Sepsis (< 1 month) Serious lung disease, including pneumonia (< 1 month) Abnormal pulmonary function Acute myocardial infarction Congestive heart failure (< 1 month) History of inflammatory bowel disease Medical patient at bed rest Age 61-74 Arthroscopic surgery Major open surgery (> 45 min) Laparoscopic surgery (> 45 min) Malignancy Confined to bed (> 72 hours) Immobilizing plaster cast Central venous access Age >= 75 History of VTE Family history of VTE Factor V Leiden Prothrombin [id number] Lupus anticoagulant Anticardiolipin antibodies Elevated serum homocysteine Heparin-induced thrombocytopenia Other congenital or acquired thrombophilia Stroke (< 1 month) Elective arthroplasty Hip, pelvis, or leg fracture Acute spinal cord injury (< 1 month) Prophylaxis Regimen: Total Risk Factor Score Risk Level Prophylaxis Regimen 0-1 Low Early ambulation 2 Moderate Order ONE of the following: *Sequential Compression Device (SCD) *Heparin 5000 units SQ BID 3-4 Higher Order ONE of the following medications: *Heparin 5000 units SQ TID *Enoxaparin/Lovenox 40 mg SQ daily (WT < 150 kg, CrCl > 30 mL/min) *Enoxaparin/Lovenox 30 mg SQ daily (WT < 150 kg, CrCl > 10-29 mL/min) *Enoxaparin/Lovenox 30 mg SQ BID (WT < 150 kg, CrCl > 30 mL/min) AND/OR *Sequential Compression Device (SCD) 5 or more Highest Order ONE of the following medications: *Heparin 5000 units SQ TID (Preferred with Epidurals) *Enoxaparin/Lovenox 40 mg SQ daily (WT < 150 kg, CrCl > 30 mL/min) *Enoxaparin/Lovenox 30 mg SQ daily (WT < 150 kg, CrCl > 10-29 mL/min) *Enoxaparin/Lovenox 30 mg SQ BID (WT < 150 kg, CrCl > 30 mL/min) AND *Sequential Compression Device (SCD) Assessment and Plan - Assessment and Plan Plan: Assessment: 87yF with septic shock secondary to healthcare associated urinary tract infection. admit to ICU. gentle ivf resuscitation given history of CHF. continue vasopressor support. doan culture and continue broad spectrum abx. critically ill. Active problems: septic shock healthcare associated urinary tract infection acute hypoglycemia acute metabolic encephalopathy history of CHF, unknown type, likely diastolic type Plan: admit to ICU mivf vanc, zosyn doan culture levophed for goal map > [address] central line frequent neuro checks avoid long-acting sedatives frequent glycemic checks hold oral hypoglycemics advance diet as tolerated renal u/s to rule out hydronephrosis f/u 2d echo to confirm preserved EF can complete stroke work-up with carotids, lipids, telemetry, however most likely metabolic in origin and not cerebrovascular. Critically ill. Critical care time: 40 minutes, exclusive of separately billable procedures. H&P: Quality - VTE Deep Vein Thrombosis/Pulmonary Embolism Present on Admission: No Procedures - Central Line Placement Right IJ Time out performed: Yes Patient placed on monitor/pulse ox: Yes MD prep: mask, gown, gloves Central line prep: Chlorhexidine scrub, sterile drapes applied Local anesthesia used: lidocaine 1% Amount of anesthesia used (mL): 5 Ultrasound used for placement: Yes Central line lumen inserted: triple Post procedure: good blood return, all ports aspirated, flushed, capped, sterile dressing applied (non-suture stat-lock device used) Post procedure x-ray: tip of catheter in good position, no pneumothorax seen Patient tolerated procedure: well, no complications Complications: none
--- NOTE | 2018-07-13 19:49 | ECG ---
Date Performed: 07/13/2018 Time Performed: 06:48:23 PTAGE: 87 years EKG: ELECTRONIC ATRIAL PACEMAKER ELECTRONIC VENTRICULAR PACEMAKER ABNORMAL RHYTHM ECG PREVIOUS TRACING :02/09/2012 @14.36 Since the previous tracing, no significant change noted DOCTOR: Bhavin Martell Interpretating Date/Time 07/13/2018 19:48:10
--- NOTE | 2018-07-13 22:01 | MG ---
cc: Deep Alvarado MD ENCEPHALOGRAM RECORD NUMBER: [id number] DESCRIPTION: A 7 Hz posterior rhythm 20-40 microvolts with 2-3 delta bursts occurring paroxysmal. Drowsy state. EEG variability reactivity, likely stage I. Reduced driving with photic stimulation. Single lead EKG showing possible bundle branch block. INTERPRETATION: Mild encephalopathy in sleep state. Clinical correlation. Deep Alvarado MD MG/sv , 09:40 PM , 09:44 PM
[2018-07-13] MEDS: Vasopressin Inj 40 UNIT in Sodium Chlor 0.9% Inj 98 ML IV.CONT SCH (22:21)
[2018-07-13] MEDS ORDERED: Morphine Inj 4 MG/ML Vial IV.PUSH ONE (22:30)
--- NOTE | 2018-07-13 23:34 | ECG ---
Date Performed: 07/13/2018 Time Performed: 17:47:10 PTAGE: 87 years EKG: Biventricular pacing with RBBB pattern Abnormal ECG PREVIOUS TRACING : 07/13/2018 06.48 Since the previous tracing, no significant change noted DOCTOR: Francisco Melgar Interpretating Date/Time 07/13/2018 23:34:12
[2018-07-14] MEDS: Senna/Docusate Sodium 8.6/50 MG Tablet PO SCH ×2 (01:35→08:30)
[2018-07-14] MEDS: Piperacil/Tazo 3.375 GM Premix 50 ML IV.SIG SCH ×3 (01:36→17:02)
[2018-07-14] MEDS ORDERED: Norepinephrine Inj 4 MG in Sodium Chlor 0.9% Inj 246 ML IV.SIG PRN (02:25)
--- NOTE | 2018-07-14 03:42 | MB ---
cc: Francisco Melgar DO DATE: 07/13/2018 REASON FOR CONSULTATION: Pacemaker interrogation, consideration of anticoagulation. HISTORY OF PRESENT ILLNESS: Viridiana Ferrer is a pleasant 87-year-old female who sees my partner, Dr. Ramachandran, in the office and presented to [facility] Emergency Room due to an altered mental status from home. Apparently, she had a similar episode 3 days ago and was found to be hypoglycemic. This resolved and she refused EMS transport to the hospital. Today, she had another episode and was transported to the ER where she was seen by neurology and there was concern for a possible CVA. She was found to be hypoglycemic and given IV dextrose. After this, her mentation improved. She was seen by neurology and there was a question of a possible CVA and so I was asked to interrogate her pacemaker and if found to have atrial fibrillation, consider anticoagulation. Between the time of evaluation of neurology and the time when I went to evaluate her, she became hypotensive and tachycardic. When I arrived, Dr. Espinoza, critical care client architect, was evaluating the patient for possible sepsis. She has been started on a Levophed drip to try to help with septic shock. PAST MEDICAL HISTORY: 1. Coronary artery disease. 2. Previous cardiomyopathy (most recent echo showing an ejection fraction of 50%). 3. Carotid artery disease. 4. History of CVA. 5. Chronic kidney disease. 6. Diabetes mellitus type 2. 7. Hyperlipidemia. 8. Hypertension. PAST SURGICAL HISTORY: 1. CABG x3 with mitral valve annuloplasty with a 26 mm James-Alejandra ring (02/17/2006) with ARREDONDO to LAD, SVG to OM2, SVG to RCA. 2. Med[employer]onic biventricular ICD (model #[id number], serial #[id number], 04/23/2009). 3. Fundal plication. ALLERGIES: 1. DIATRIZOATE. 2. GADOBENIC ACID. 3. GADODIAMIDE. 4. GADOTERIDOL. 5. IODIXANOL. 6. IOHEXOL. 7. HYDROCORTISONE. MEDICATIONS: 1. Omeprazole 20 mg daily. 2. Glipizide 5 mg daily. 3. Plavix 75 mg daily. 4. Crestor 10 mg daily. 5. Calcitriol 0.25 mcg every other day. 6. Potassium 10 mEq daily. 7. Metoprolol tartrate 37.5 mg daily. 8. Bumetanide 1 mg daily. 9. Losartan 100 mg daily. 10. Nateglinide 120 mg t.i.d. FAMILY HISTORY: Denies premature coronary artery disease or sudden cardiac within the family. SOCIAL HISTORY: The patient denies a history of tobacco, alcohol or drug abuse. REVIEW OF SYSTEMS: Difficult to ascertain but overall, 14 systems were reviewed including osteopathic. Pertinent positives and negatives above, otherwise negative. PHYSICAL EXAMINATION: VITAL SIGNS: Temperature 97.6, heart rate 70, blood pressure 82/45, respirations 18, pulse oximetry 97% on room air. GENERAL: The patient appears an elderly female lying in bed, in no distress. HEENT: Extraocular muscles intact. Mucous membranes moist. NECK: Supple. No JVD at 45 degrees. No carotid bruits heard bilaterally. Carotid upstroke is brisk in nature. HEART: Regular rate and rhythm. Positive first and second heart sounds with a 1/6 holosystolic murmur noted at the apex. LUNGS: Clear to auscultation bilaterally. No wheezes, rales or rhonchi. ABDOMEN: Soft, nontender, nondistended. No organomegaly noted. EXTREMITIES: Show no clubbing, cyanosis or edema. Femoral and distal pulses are intact bilaterally. NEUROLOGIC: No focal deficits. SKIN: Warm, dry and intact. OSTEOPATHIC: No kyphoscoliosis, lordosis or paraspinal tender points. LABORATORY DATA: Hemoglobin 13.0, hematocrit 39.2, platelets 165. Potassium 4.2, BUN 76, creatinine 2.12, glucose 49. Troponin less than 0.02. Electrocardiogram (07/13/2018 at 0648 hours), AV paced. IMPRESSION: 1. Septic shock due to healthcare-associated urinary tract infection. 2. Healthcare-associated urinary tract infection. 3. Acute hypoglycemia, most likely due to sepsis. 4. Acute metabolic encephalopathy. 5. History of coronary artery disease with coronary artery bypass grafting. 6. History of mitral valve annuloplasty ring. RECOMMENDATIONS: 1. Ms. Ferrer presented with acute mental status change, but overall, this appears to be metabolic in nature and not likely to be a CVA. 2. At this time, I do not feel that it is necessary to interrogate her pacemaker, I believe that her current issues stem from her sepsis. 3. Note from the office shows that she has had no atrial fibrillation noted on her pacemaker and so will not be started on anticoagulation. 4. Agree with Dr. Espinoza that the patient should be started on pressors and admitted to the ICU. 5. As she is hypotensive and this is most likely septic shock, I feel that we should recheck an echo to make sure that there has been no change in her overall ejection fraction as a previous echo said that her EF was 50% but she has a biventricular ICD. To make sure that this was not an anomaly, we will recheck an echo to evaluate her overall ejection fraction to make sure this is not part of her cause of shock. 6. Further recommendations will be made based on the hospital course. Thank you for allowing me to see Sandie Ferrer. If there are any questions, please do not hesitate to call. DO FRANCES Broderick/durga/christie , 08:50 PM , 09:04 PM
[2018-07-14 05:51] LABS: Eos % (Auto) 0.2 % (0.0-4.0); Hematocrit 27.1 % (35.0-46.0); Hemoglobin 8.9 gm/dL (11.6-15.3); Lymph % (Auto) 7.4 % (9.0-44.0); Mean Platelet Volume 9.3 fL (7.0-11.0); Mono % (Auto) 7.1 % (0.0-8.0); Neut # (Auto) 11.5 th/mm3 (1.8-7.7); Neut % (Auto) 85.3 % (16.0-70.0); Platelet Count 86 th/mm3 (150-450); Red Blood Count 3.07 mil/mm3 (4.00-5.30); Red Cell Distribution Width 16.5 % (11.6-17.2); White Blood Count 13.5 th/mm3 (4.0-11.0)
[2018-07-14] MEDS: Sod Chloride 0.9% Inj 1,000 ML IV.CONT SCH ×2 (06:11→17:01)
[2018-07-14 06:24] LABS: Albumin 1.5 g/dL (3.4-5.0); Calcium 6.6 mg/dL (8.5-10.1); Carbon Dioxide 21.1 meq/L (21.0-32.0); Potassium 3.4 meq/L (3.5-5.1); Total Protein 4.4 g/dL (6.4-8.2)
[2018-07-14 07:50] LABS: Platelet Morphology Normal (Normal); RBC Morphology Normal (Normal)
[2018-07-14] MEDS: Insulin NovoLOG Aspart Correctional Sugar Inj SQ SCH ×4 (08:17→21:31)
--- NOTE | 2018-07-14 08:17 | P.PNNEU ---
Subjective Subjective Comments: Slept well denies any headache fever vision loss chest pain or dyspnea Active Medications: Active Medications Hydrocodone Bitart/Acetaminophen ([place] 5/325) 1 tab PO Q6H PRN PRN Reason: Pain 5-10 Last Admin: 07/14/18 06:31 Dose: 1 tab Al Hydroxide/Mg Hydroxide (Milk Of Magnesia Liq) 30 ml PO Q12H PRN PRN Reason: Mild Constipation Bisacodyl (Dulcolax Supp) 10 mg RECTAL DAILY PRN PRN Reason: SEVERE CONSITIPATION Dextrose (D50w Vial) 50 ml IV.PUSH UNSCH PRN PRN Reason: PER HYPOGLYCEMIA PROTOCOL Glucagon (Glucagon Inj) 1 mg OTHER PRN PRN PRN Reason: for Hypoglycemia Protocol Pantoprazole Sodium 80 mg/ (Sodium Chloride) 100 mls @ 10 mls/hr IV.CONT CONT [facility] Sodium Chloride (Ns Inj) 1,000 mls @ 100 mls/hr IV.CONT .Q10H [facility] Last Admin: 07/14/18 06:11 Dose: 100 mls/hr Piperacillin/Tazobactam/Dextrose (Zosyn 3.375 Gm Premix) 50 mls @ 100 mls/hr IV.SIG Q8H [facility] Last Infusion: 07/14/18 05:17 Dose: Infused Vasopressin 40 unit/ Sodium (Chloride) 100 mls @ 6 mls/hr IV.CONT CONT [facility]; Protocol Last Admin: 07/13/18 22:21 Dose: 0.04 units/min, 6 mls/hr Norepinephrine Bitartrate 4 mg (/ Sodium Chloride) 250 mls @ 7.5 mls/hr IV.SIG TITRATE PRN; Protocol PRN Reason: Per Protocol Insulin Aspart (Novolog Insulin Correctional Sugar Inj) 0 unit SQ ACHS [facility]; Protocol Last Admin: 07/13/18 22:15 Dose: 5 unit Lactulose (Lactulose Liq) 30 ml PO DAILY PRN PRN Reason: SEVERE CONSITIPATION Pharmacy Profile Note (Vancomycin Consult Pharmacy) 1 each OTHER UNSCH PRN PRN Reason: Pharmacy to dose Senna/Docusate Sodium (Bernadette-Colace) 1 tab PO BID [facility] Last Admin: 07/14/18 01:35 Dose: 1 tab Sennosides (Senokot) 17.2 mg PO Q12H PRN PRN Reason: Moderate Constipation Sodium Chloride (Ns Flush) 2 ml IV.FLUSH PRN PRN PRN Reason: FLUSH AFTER USING IV ACCESS Allergies/Adverse Reactions: Allergies Allergy/AdvReac Type Severity Reaction Status Date / Time diatrizoate meglumine Allergy Severe Hives Verified 07/13/18 08:05 gadobenic acid Allergy Severe Hives Verified 07/13/18 08:05 gadodiamide Allergy Severe Hives Verified 07/13/18 08:05 gadoteridol Allergy Severe Hives Verified 07/13/18 08:05 iodixanol Allergy Severe Hives Verified 07/13/18 08:05 iohexol Allergy Severe Hives Verified 07/13/18 08:05 hydrocortisone Allergy Intermediate HIVES Verified 07/13/18 08:05 Review of Systems All other systems reviewed negative except as stated in HPI Physical Exam Vital signs: Vital Signs 07/13/18 10:30 07/13/18 11:24 07/13/18 11:43 Temperature Pulse Rate 70 53 L 70 Respiratory Rate 19 18 18 Blood Pressure 82/44 L 88/48 L 82/45 L Pulse Oximetry 96 97 07/13/18 12:32 07/13/18 15:20 07/13/18 16:00 Temperature 97.6 F Pulse Rate 78 80 Respiratory Rate 16 21 Blood Pressure 150/88 H 95/59 L Pulse Oximetry 95 07/13/18 20:00 07/13/18 20:04 07/14/18 00:00 Temperature 97.9 F 98.7 F Pulse Rate 78 Respiratory Rate 16 Blood Pressure 101/54 L 95/45 L Pulse Oximetry 98 97 16 L 07/14/18 04:00 07/14/18 07:34 Temperature 97.7 F Pulse Rate 71 Respiratory Rate 14 Blood Pressure 107/53 L Pulse Oximetry 98 97 Intake & Output 07/13/18 07/14/18 07/14/18 18:59 06:59 18:59 Intake Total 1350 / 1350 5340 / 5340 Output Total 450 / 450 500 / 500 Balance 900 / 900 4840 / 4840 Weight 69 kg 74.8 kg Intake: IV 1350 / 1350 5100 / 5100 NS Inj 1,000 ML @ 100 mls/hr IV 1000 / 1000 2000 / 2000 .CONT .Q10H [facility] Rx#:[id number] Zosyn 3.375 GM Premix 50 ML @ 100 / 100 100 mls/hr IV.SIG Q8H [facility] Rx#: [id number] NS Inj 1,000 ML @ As Directed 3000 / 3000 IV.SIG BOLUS ONE Rx#:[id number] Oral 240 / 240 Output: Stool 0 / 0 Urine Amount (Catheter) 450 / 450 500 / 500 Indwelling Temp Sensing 450 / 450 500 / 500 Catheter Other: # Bowel Movements 0 Narrative: General: Alert, conversant, Head: Atraumatic, Neck: Supple, airway widely patent, no obstructive noises. Lungs: Clear bilaterally, comfortable respiratory pattern, Heart: Normal S1-S2, regular rate and rhythm, Abdomen: Soft, nondistended, no guarding, Extremities: Warm, well-perfused. No edema. Neuro: Oriented 3, alert, cooperative, conversant. Speech clear. Articulate follows motor requests. Right lower extremity right foot dorsiflexion weakness which she states is chronic slightly on the left mild chronic ecchymotic looking limbs - Constitutional no acute distress - Routine HEENT Exam Head: Present: normocephalic Eye: Present: EOMI - Urinary Catheter Management Indwelling Temp Sensing Catheter Cath placed during this visit: yes Reason for continuing: Hourly intake/output Insertion date: 07/13/18 Insertion time: 07:35 Objective Laboratory Results - last 24 hr 07/13/18 07/13/18 07/13/18 06:55 06:55 06:55 WBC RBC Hgb Hct MCV MCH MCHC RDW Plt Count MPV Prelim Diff (Auto) Neut % (Auto) Lymph % (Auto) [place] % (Auto) Eos % (Auto) Baso % (Auto) Neut # (Auto) Lymph # (Auto) [place] # (Auto) Eos # (Auto) Baso # (Auto) WBC Differential Diff Scan Differential Comment Platelet Estimate Platelet Morphology RBC Morphology ESR 18 Sodium Potassium Chloride Carbon Dioxide Anion Gap BUN Creatinine Estimated GFR POC Glucose Random Glucose Hemoglobin A1c 7.3 H Lactic Acid Calcium Prot Corrected Calcium Total Bilirubin AST ALT Alkaline Phosphatase Total Protein Albumin Triglycerides 75 Cholesterol Less than 50 L LDL Cholesterol, Calc 8 HDL Cholesterol 26.9 L Cholesterol/HDL Ratio 1.85 Vitamin B12 1477 H TSH 2.780 Nasal Screen MRSA (PCR) Staph aureus (PCR) 07/13/18 07/13/18 07/13/18 07:45 08:30 09:41 WBC RBC Hgb Hct MCV MCH MCHC RDW Plt Count MPV Prelim Diff (Auto) Neut % (Auto) Lymph % (Auto) [place] % (Auto) Eos % (Auto) Baso % (Auto) Neut # (Auto) Lymph # (Auto) [place] # (Auto) Eos # (Auto) Baso # (Auto) WBC Differential Diff Scan Differential Comment Platelet Estimate Platelet Morphology RBC Morphology ESR Sodium Potassium Chloride Carbon Dioxide Anion Gap BUN Creatinine Estimated GFR POC Glucose 209 H 305 H Random Glucose Hemoglobin A1c Lactic Acid 1.9 Calcium Prot Corrected Calcium Total Bilirubin AST ALT Alkaline Phosphatase Total Protein Albumin Triglycerides Cholesterol LDL Cholesterol, Calc HDL Cholesterol Cholesterol/HDL Ratio Vitamin B12 TSH Nasal Screen MRSA (PCR) Staph aureus (PCR) 07/13/18 07/13/18 07/13/18 14:25 14:49 17:08 WBC RBC Hgb Hct MCV MCH MCHC RDW Plt Count MPV Prelim Diff (Auto) Neut % (Auto) Lymph % (Auto) [place] % (Auto) Eos % (Auto) Baso % (Auto) Neut # (Auto) Lymph # (Auto) [place] # (Auto) Eos # (Auto) Baso # (Auto) WBC Differential Diff Scan Differential Comment Platelet Estimate Platelet Morphology RBC Morphology ESR Sodium Potassium Chloride Carbon Dioxide Anion Gap BUN Creatinine Estimated GFR POC Glucose 274 H 263 H Random Glucose Hemoglobin A1c Lactic Acid Calcium Prot Corrected Calcium Total Bilirubin AST ALT Alkaline Phosphatase Total Protein Albumin Triglycerides Cholesterol LDL Cholesterol, Calc HDL Cholesterol Cholesterol/HDL Ratio Vitamin B12 TSH Nasal Screen MRSA (PCR) Negative Staph aureus (PCR) Negative 07/13/18 07/14/18 07/14/18 21:08 05:15 05:15 WBC 13.5 H RBC 3.07 L Hgb 8.9 L D Hct 27.1 L MCV 88.0 MCH 29.0 MCHC 33.0 RDW 16.5 Plt Count 86 L D MPV 9.3 Prelim Diff (Auto) Slide review pending Neut % (Auto) 85.3 H Lymph % (Auto) 7.4 L [place]asper % (Auto) 7.1 Eos % (Auto) 0.2 Baso % (Auto) 0.0 Neut # (Auto) 11.5 H Lymph # (Auto) 1.0 Jasper # (Auto) 1.0 H Eos # (Auto) 0.0 Baso # (Auto) 0.0 WBC Differential . Diff Scan Auto diff confirmed Differential Comment . Platelet Estimate Low L Platelet Morphology Normal RBC Morphology Normal ESR Sodium 145 Potassium 3.4 L D Chloride 112 H Carbon Dioxide 21.1 Anion Gap 12 BUN 70 H Creatinine 1.94 H Estimated GFR 24 L POC Glucose 303 H Random Glucose 115 H Hemoglobin A1c Lactic Acid Calcium 6.6 L* D Prot Corrected Calcium 8.0 L Total Bilirubin 0.5 AST 32 ALT 22 Alkaline Phosphatase 117 Total Protein 4.4 L Albumin 1.5 L Triglycerides Cholesterol LDL Cholesterol, Calc HDL Cholesterol Cholesterol/HDL Ratio Vitamin B12 TSH Nasal Screen MRSA (PCR) Staph aureus (PCR) Review/Management - Diagnosis (1) Pacemaker Code(s): Z95.0 - Presence of cardiac pacemaker Status: Acute Current Visit: Yes (2) Diabetic peripheral neuropathy Code(s): E11.42 - Type 2 diabetes mellitus with diabetic polyneuropathy Status : Acute Current Visit: Yes (3) Altered mental status Code(s): R41.82 - Altered mental status, unspecified Status: Acute Current Visit: Yes (4) Sepsis Code(s): A41.9 - Sepsis, unspecified organism Status: Acute Current Visit: Yes (5) Hypoglycemia Code(s): E16.2 - Hypoglycemia, unspecified Status: Acute Current Visit: Yes (6) Right carotid artery occlusion Code(s): I65.21 - Occlusion and stenosis of right carotid artery Status: Acute Current Visit: Yes - Review/Management Plan: Send clear for episode of speech impairment and weakness is more related to possible developing sepsis picture, hypoglycemia versus a TIA. Carotid ultrasound demonstrating a right carotid occlusion and left carotid 60% stenosis. She likely had a hypo-perfusion related TIA. She has a pacemaker she is not a candidate for an MRI. With her elevated creatinine CTAs would be difficult to achieve without compromising kidney function At high risk for intervention of the left carotid medical management Recommendations Neuro exam stable Medical management Seen by cardiology Follow exam (3) Altered mental status Qualifiers: Altered mental status type: unspecified Qualified Code(s): R41.82 - Altered mental status, unspecified (4) Sepsis Qualifiers: Sepsis type: sepsis due to unspecified organism Qualified Code(s): A41.9 - Sepsis, unspecified organism
[2018-07-14] MEDS: Pantoprazole Inj 40 MG Vial IV.PUSH SCH (08:43)
--- NOTE | 2018-07-14 08:45 | P.PNCC ---
Subjective Subjective Remarks/Hospital Course: 07/13: This is an 87yF with history of prior bioprosthetic mitral valve replacement and prior CHF s/p AICD placement who presents with altered mental status from home. per report she had similar episode 3 days ago and was found to be hypoglycemic, but this resolved and she refused EMS transport to the hospital. today she was transported to ER where she had a glucose of 48 and given iv dextrose. after this her mentation improved. however, she was hypotensive and tachycardic. CT brain negative for acute findings. wbc demonstrates leukocytosis and patient febrile. u/a grossly positive and urine appears purulent. started on empiric abx. given gentle ivf hydration given history of CHF and started on norepinephrine for pressor support. per report from Dr. Melgar, her most recent echo had EF 50%. ROS essentially unobtainable due to her altered mentation, although she is alert enough to deny chest pain, shortness of breath. 07/14: Very hard of hearing, but more alert today. Doppler evaluation reveals severe extra-cranial carotid occlusive disease, including complete occlusion of the right internal carotid artery and hemodynamically significant stenosis in the left internal carotid artery. It can easily be inferred that her sensorium will be altered by hypotension. Urine output overnight is acceptable but her fluid balance is over 5 L positive. She continues breathing comfortably and shows no signs of heart failure. Prerenal azotemia persists but creatinine is marginally improved. Weaning of the vasopressor is a bit more sketchy now that we know her carotid anatomy. We will certainly avoid hypotension. Objective Vital Signs / I&O: Vital Signs 07/13/18 10:30 07/13/18 11:24 07/13/18 11:43 Temperature Pulse Rate 70 53 L 70 Respiratory Rate 19 18 18 Blood Pressure 82/44 L 88/48 L 82/45 L Pulse Oximetry 96 97 07/13/18 12:32 07/13/18 15:20 07/13/18 16:00 Temperature 97.6 F Pulse Rate 78 80 Respiratory Rate 16 21 Blood Pressure 150/88 H 95/59 L Pulse Oximetry 95 07/13/18 20:00 07/13/18 20:04 07/14/18 00:00 Temperature 97.9 F 98.7 F Pulse Rate 78 Respiratory Rate 16 Blood Pressure 101/54 L 95/45 L Pulse Oximetry 98 97 16 L 07/14/18 04:00 07/14/18 07:34 Temperature 97.7 F Pulse Rate 71 Respiratory Rate 14 Blood Pressure 107/53 L Pulse Oximetry 98 97 Intake & Output 07/13/18 07/14/18 07/14/18 18:59 06:59 18:59 Intake Total 1350 / 1350 5340 / 5340 Output Total 450 / 450 500 / 500 Balance 900 / 900 4840 / 4840 Weight 69 kg 74.8 kg Intake: IV 1350 / 1350 5100 / 5100 NS Inj 1,000 ML @ 100 mls/hr IV 1000 / 1000 2000 / 2000 .CONT .Q10H [facility] Rx#:[id number] Zosyn 3.375 GM Premix 50 ML @ 100 / 100 100 mls/hr IV.SIG Q8H [facility] Rx#: [id number] NS Inj 1,000 ML @ As Directed 3000 / 3000 IV.SIG BOLUS ONE Rx#:[id number] Oral 240 / 240 Output: Stool 0 / 0 Urine Amount (Catheter) 450 / 450 500 / 500 Indwelling Temp Sensing 450 / 450 500 / 500 Catheter Other: # Bowel Movements 0 Result Diagrams: 07/14/18 05:15 07/14/18 05:15 Objective Remarks: - Imaging Impressions Chest X-Ray 07/13/18 06:44 CONCLUSION: Clear lungs. Head CT 07/13/18 06:44 CONCLUSION: 1. Patchy white matter disease likely related to chronic microvascular ischemic disease. 2. No hemorrhage. 3. Report called by Dr. Méndez to Dr. Cox at 7:09 AM on July 13, 2018. Carotid Doppler Study 07/13/18 09:21 CONCLUSION: 1. 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 2. Left Internal Carotid Artery: Focal moderate to severe stenosis of the distal common carotid arteries secondary to noncalcified plaque. Moderate, 50-69 %, stenosis of the internal carotid artery. Consider CTA examination for better evaluation. Patient may be a candidate for carotid intervention given the tandem lesions and contralateral occlusion. Abdomen/Bladder Ultrasound 07/13/18 11:42 CONCLUSION: 1. No acute findings. Small bilateral renal cysts. No hydronephrosis. Bladder decompressed by Martel. Chest X-Ray 07/13/18 12:17 CONCLUSION: Right-sided port placement with tip in right atrium. No pneumothorax. Exam Narrative: gen: elderly frail female, lying in bed, in no distress. heent: perrl. nc. neck: no jvd. trachea midline. airway widely patent. chest: equal chest rise. room air. comfortable pattern. cv: tachycardic rate, regular rhythm. no JVD. abd: soft, nontender, nondistended. no guarding. bs active. extr: no peripheral edema. distal pulses 2+. neuro: RASS 0. follows commands. confused. CAM+. oriented to person. very poor hearing Assessment and Plan - Assessment and Plan Plan: Assessment: 87yF with septic shock secondary to healthcare associated urinary tract infection. admit to ICU. gentle ivf resuscitation given history of CHF. continue vasopressor support. doan culture and continue broad spectrum abx. critically ill. Active problems: septic shock healthcare associated urinary tract infection acute hypoglycemia acute metabolic encephalopathy history of CHF, unknown type, likely diastolic type Extra cranial carotid occlusive disease (complete occlusion right, significant stenosis left) Plan: continue ICU mivf vanc, zosyn doan culture levophed for goal SBP > [address] central line frequent neuro checks avoid long-acting sedatives frequent glycemic checks hold oral hypoglycemics advance diet as tolerated renal u/s to rule out hydronephrosis f/u 2d echo to confirm preserved EF can complete stroke work-up with carotids, lipids, telemetry, however most likely metabolic in origin and not cerebrovascular. Overall impression: This woman presented critically ill with stroke-like symptoms, undoubtedly related to hypotension in the context of severe carotid occlusive disease. Because of the tenuous cervical inflow vessel anatomy she is neurologically unstable and requires vasopressor therapy. Additionally, she is in the midst of severe sepsis. She remains critically ill and unstable. Critical care time 40 minutes aside from procedures.
[2018-07-14] MEDS: Vasopressin Inj 40 UNIT in Sodium Chlor 0.9% Inj 98 ML IV.CONT SCH (12:34)
[2018-07-14] MEDS ORDERED: Vancomycin Inj 1,000 MG in Sodium Chlor 0.9% Inj 250 ML IV.SIG ONE (15:00)
[2018-07-14] MEDS: Dextrose 50% in Water 50 ML Vial IV.PUSH PRN (17:03)
--- NOTE | 2018-07-14 22:29 | P.PNCA ---
Subjective Interval history: No events overnight Off Levophed, still on Vasopressin Physical Exam Vital signs: Vital Signs 07/14/18 00:00 07/14/18 04:00 07/14/18 07:34 Temperature 98.7 F 97.7 F Pulse Rate 71 Respiratory Rate 14 Blood Pressure 95/45 L 107/53 L Pulse Oximetry 16 L 98 97 07/14/18 08:00 07/14/18 09:00 07/14/18 12:00 Temperature 98.2 F 98.1 F Pulse Rate 81 81 71 Respiratory Rate 18 17 Blood Pressure 115/56 L 108/49 L Pulse Oximetry 96 98 07/14/18 16:00 07/14/18 19:58 Temperature 98.0 F Pulse Rate 80 Respiratory Rate 18 Blood Pressure 110/61 Pulse Oximetry 99 99 Intake & Output 07/14/18 07/14/18 07/15/18 06:59 18:59 06:59 Intake Total 5340 / 5340 2150 / 2150 Output Total 500 / 500 600 / 600 Balance 4840 / 4840 1550 / 1550 Weight 74.8 kg Intake: IV 5100 / 5100 1700 / 1700 NS Inj 1,000 ML @ 100 mls/hr IV 2000 / 2000 1000 / 1000 .CONT .Q10H [facility] [place] Rx#:[id number] Pitressin Inj 40 UNIT In NS Inj 100 / 100 98 ML @ 0.04 UNITS/MIN 6 mls/ hr IV.CONT CONT [facility] Rx#: [id number] Levophed-Dextrose 4 mg/250 ml 250 / 250 Drip 4 mg In 250 ml @ 2 MCG/MIN 7.5 mls/hr IV.SIG TITRATE PRN Rx#:[id number] Zosyn 3.375 GM Premix 50 ML @ 100 / 100 100 / 100 100 mls/hr IV.SIG Q8H [facility] Rx#: [id number] NS Inj 1,000 ML @ As Directed 3000 / 3000 IV.SIG BOLUS ONE Rx#:[id number] Vancomycin Inj 1,000 MG In NS 250 / 250 Inj 250 ML @ 250 mls/hr IV.SIG ONCE ONE Rx#:[id number] Oral 240 / 240 450 / 450 Output: Stool 0 / 0 Urine Amount (Catheter) 500 / 500 600 / 600 Indwelling Temp Sensing 500 / 500 600 / 600 Catheter Other: # Bowel Movements 0 Narrative: General: Alert, conversant, Head: Atraumatic, Neck: Supple, airway widely patent, no obstructive noises. Lungs: Clear bilaterally, comfortable respiratory pattern, Heart: Normal S1-S2, regular rate and rhythm, Abdomen: Soft, nondistended, no guarding, Extremities: Warm, well-perfused. No edema. Neuro: Oriented 3, alert, cooperative, conversant. Speech clear. Articulate follows motor requests. Right lower extremity right foot dorsiflexion weakness which she states is chronic slightly on the left mild chronic ecchymotic looking limbs - Urinary Catheter Management Indwelling Temp Sensing Catheter Cath placed during this visit: yes Reason for continuing: Hourly intake/output Insertion date: 07/13/18 Insertion time: 07:35 Assessment and Plan - Assessment (1) H/O mitral valve repair Code(s): Z98.890 - Other specified postprocedural states Status: Acute (2) Altered mental status Code(s): R41.82 - Altered mental status, unspecified Status: Acute (3) Sepsis Code(s): A41.9 - Sepsis, unspecified organism Status: Acute (4) Hypoglycemia Code(s): E16.2 - Hypoglycemia, unspecified Status: Acute (5) Pacemaker Code(s): Z95.0 - Presence of cardiac pacemaker Status: Acute (6) Right carotid artery occlusion Code(s): I65.21 - Occlusion and stenosis of right carotid artery Status: Acute - Plan 1) Acute mental status change Possible due to hypoglycemia, sepsis with UTI, or TIA due to hypoperfusion with carotid disease 2) No history of AFib on previous interrogations in the office 3) Hx of mitral valve repair and CABG 4) Attempt to wean Vasopressin But will have to be careful of hypotension with known carotid disease 5) Repeat echo showing an EF of 50-55%, same as previous (2) Altered mental status Qualifiers: Altered mental status type: unspecified Qualified Code(s): R41.82 - Altered mental status, unspecified (3) Sepsis Qualifiers: Sepsis type: sepsis due to unspecified organism Qualified Code(s): A41.9 - Sepsis, unspecified organism
[2018-07-15] MEDS: Senna/Docusate Sodium 8.6/50 MG Tablet PO SCH ×3 (01:40→22:25)
[2018-07-15] MEDS: Sod Chloride 0.9% Inj 1,000 ML IV.CONT SCH ×4 (01:41→23:38)
[2018-07-15] MEDS: Piperacil/Tazo 3.375 GM Premix 50 ML IV.SIG SCH ×3 (01:43→17:31)
[2018-07-15] MEDS: Dextrose 50% in Water 50 ML Vial IV.PUSH PRN ×2 (05:59→21:30)
[2018-07-15 06:13] LABS: Eos # (Auto) 0.1 th/mm3 (0.0-0.4); Eos % (Auto) 0.9 % (0.0-4.0); Hematocrit 25.5 % (35.0-46.0); Hemoglobin 8.4 gm/dL (11.6-15.3); Lymph # (Auto) 0.8 th/mm3 (1.0-4.8); Lymph % (Auto) 6.2 % (9.0-44.0); Mean Corpuscular HGB Conc 33.1 % (32.0-36.0); Mean Corpuscular Volume 87.6 fL (80.0-100.0); Mean Platelet Volume 9.2 fL (7.0-11.0); Mono % (Auto) 7.4 % (0.0-8.0); Neut # (Auto) 11.2 th/mm3 (1.8-7.7); Neut % (Auto) 85.5 % (16.0-70.0); Platelet Count 73 th/mm3 (150-450); Red Blood Count 2.91 mil/mm3 (4.00-5.30); Red Cell Distribution Width 16.8 % (11.6-17.2); White Blood Count 13.1 th/mm3 (4.0-11.0)
[2018-07-15 06:30] LABS: Calcium 6.7 mg/dL (8.5-10.1); Carbon Dioxide 20.5 meq/L (21.0-32.0); Vancomycin,Random 17.1 Comment
[2018-07-15 06:39] LABS: Potassium 2.6 meq/L (3.5-5.1)
[2018-07-15 06:52] LABS: Total Protein 4.2 g/dL (6.4-8.2)
--- NOTE | 2018-07-15 08:05 | P.PNCC ---
Subjective Subjective Remarks/Hospital Course: 07/13: This is an 87yF with history of prior bioprosthetic mitral valve replacement and prior CHF s/p AICD placement who presents with altered mental status from home. per report she had similar episode 3 days ago and was found to be hypoglycemic, but this resolved and she refused EMS transport to the hospital. today she was transported to ER where she had a glucose of 48 and given iv dextrose. after this her mentation improved. however, she was hypotensive and tachycardic. CT brain negative for acute findings. wbc demonstrates leukocytosis and patient febrile. u/a grossly positive and urine appears purulent. started on empiric abx. given gentle ivf hydration given history of CHF and started on norepinephrine for pressor support. per report from Dr. Melgar, her most recent echo had EF 50%. ROS essentially unobtainable due to her altered mentation, although she is alert enough to deny chest pain, shortness of breath. 07/14: Very hard of hearing, but more alert today. Doppler evaluation reveals severe extra-cranial carotid occlusive disease, including complete occlusion of the right internal carotid artery and hemodynamically significant stenosis in the left internal carotid artery. It can easily be inferred that her sensorium will be altered by hypotension. Urine output overnight is acceptable but her fluid balance is over 5 L positive. She continues breathing comfortably and shows no signs of heart failure. Prerenal azotemia persists but creatinine is marginally improved. Weaning of the vasopressor is a bit more sketchy now that we know her carotid anatomy. We will certainly avoid hypotension. 07/15: Urine output continues to improve and renal function improving. Gram- negative rods identified in urine will narrow coverage to Zosyn. Wild glucose swings continue. Glucose 33 this morning after at bedtime coverage. Will continue to hold oral diabetic agents until creatinine a little bit better. Will discontinue at bedtime coverage and just cover her meals with sliding scale. All in all she is very much improved. Objective Vital Signs / I&O: Vital Signs 07/14/18 08:00 07/14/18 09:00 07/14/18 12:00 Temperature 98.2 F 98.1 F Pulse Rate 81 81 71 Respiratory Rate 18 17 Blood Pressure 115/56 L 108/49 L Pulse Oximetry 96 98 07/14/18 16:00 07/14/18 19:58 07/14/18 20:00 Temperature 98.0 F 97.4 F L Pulse Rate 80 79 Respiratory Rate 18 19 Blood Pressure 110/61 117/56 L Pulse Oximetry 99 99 100 07/15/18 00:00 07/15/18 04:00 07/15/18 07:53 Temperature 97.5 F L 97.5 F L Pulse Rate 82 79 Respiratory Rate 14 15 Blood Pressure 101/52 L 101/52 L Pulse Oximetry 100 100 100 Intake & Output 07/14/18 07/15/18 07/15/18 18:59 06:59 18:59 Intake Total 2150 / 2150 1150 / 1150 Output Total 600 / 600 651 / 651 Balance 1550 / 1550 499 / 499 Weight 74.3 kg Intake: IV 1700 / 1700 1050 / 1050 NS Inj 1,000 ML @ 100 mls/hr IV 1000 / 1000 1000 / 1000 .CONT .Q10H [facility] Rx#:[id number] Pitressin Inj 40 UNIT In NS Inj 100 / 100 98 ML @ 0.04 UNITS/MIN 6 mls/ hr IV.CONT CONT [facility] Rx#: [id number] Levophed-Dextrose 4 mg/250 ml 250 / 250 Drip 4 mg In 250 ml @ 2 MCG/MIN 7.5 mls/hr IV.SIG TITRATE PRN Rx#:[id number] Zosyn 3.375 GM Premix 50 ML @ 100 / 100 50 / 50 100 mls/hr IV.SIG Q8H [facility] Rx#: [id number] Vancomycin Inj 1,000 MG In NS 250 / 250 Inj 250 ML @ 250 mls/hr IV.SIG ONCE ONE Rx#:[id number] Oral 450 / 450 100 / 100 Output: Stool 1 / 1 Urine Amount (Catheter) 600 / 600 650 / 650 Indwelling Temp Sensing 600 / 600 650 / 650 Catheter Other: Date of Last Bowel Movement 07/14/18 # Bowel Movements 0 Weight On Admission 75 kg Result Diagrams: 07/15/18 05:30 07/15/18 05:30 Objective Remarks: - Imaging Impressions Chest X-Ray 07/13/18 06:44 CONCLUSION: Clear lungs. Head CT 07/13/18 06:44 CONCLUSION: 1. Patchy white matter disease likely related to chronic microvascular ischemic disease. 2. No hemorrhage. 3. Report called by Dr. Méndez to Dr. Cox at 7:09 AM on July 13, 2018. Carotid Doppler Study 07/13/18 09:21 CONCLUSION: 1. 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 2. Left Internal Carotid Artery: Focal moderate to severe stenosis of the distal common carotid arteries secondary to noncalcified plaque. Moderate, 50-69 %, stenosis of the internal carotid artery. Consider CTA examination for better evaluation. Patient may be a candidate for carotid intervention given the tandem lesions and contralateral occlusion. Abdomen/Bladder Ultrasound 07/13/18 11:42 CONCLUSION: 1. No acute findings. Small bilateral renal cysts. No hydronephrosis. Bladder decompressed by Martel. Chest X-Ray 07/13/18 12:17 CONCLUSION: Right-sided port placement with tip in right atrium. No pneumothorax. Exam Narrative: gen: elderly feisty female, lying in bed, in no distress. heent: perrl. nc. neck: no jvd. trachea midline. airway widely patent. no obstructive noises chest: equal chest rise, nonlabored, clear sounds, comfortable pattern. cv: regular rate, regular rhythm. no JVD. abd: soft, nontender, nondistended. no guarding. bs active. extr: no peripheral edema. distal pulses 2+, well-perfused neuro: RASS 0. follows commands, clearheaded, oriented, no longer confused, very poor hearing Assessment and Plan - Assessment and Plan Plan: Assessment: 87yF with septic shock secondary to healthcare associated urinary tract infection. admit to ICU. gentle ivf resuscitation given history of CHF. Much improved. Active problems: septic shock healthcare associated urinary tract infection acute hypoglycemia acute metabolic encephalopathy history of CHF, unknown type, likely diastolic type Extra cranial carotid occlusive disease (complete occlusion right, significant stenosis left) Plan: continue ICU mivf discontinue vanc, continue Zosyn doan culture -urine with gram-negative rods levophed for goal SBP > [address] central line frequent neuro checks avoid long-acting sedatives frequent glycemic checks hold oral hypoglycemics advance diet as tolerated renal u/s to rule out hydronephrosis f/u 2d echo to confirm preserved EF can complete stroke work-up with carotids, lipids, telemetry, however most likely metabolic in origin and not cerebrovascular. Discontinue at bedtime insulin coverage. Overall impression: This woman presented critically ill with stroke-like symptoms, undoubtedly related to hypotension in the context of severe carotid occlusive disease. Because of the tenuous cervical vessel anatomy she is neurologically unstable and has required vasopressor therapy. She is much more stable today with good systolic pressure. It is tempting to consider stenting her left internal carotid artery after she recovers from this sepsis episode. I will defer to the neurology service to help us decide if that would be a prudent endeavor. Code Status: Full code
[2018-07-15 08:25] LABS: Platelet Morphology Normal (Normal)
[2018-07-15] MEDS ORDERED: Potassium Chloride Inj 20 MEQ/10 ML Vial IV.SIG ONE (09:00)
[2018-07-15] MEDS: Insulin NovoLOG Aspart Correctional Sugar Inj SQ SCH ×3 (09:06→17:30)
[2018-07-15] MEDS: Pantoprazole Inj 40 MG Vial IV.PUSH SCH (09:07)
[2018-07-15] MEDS: Potassium Chloride Inj 20 MEQ in Sodium Chlor 0.9% Inj 100 ML IV.SIG SCH ×2 (09:27→11:27)
--- NOTE | 2018-07-15 09:34 | P.PNNEU ---
Subjective Subjective Comments: Denies any focal weakness headache chest pain or dyspnea. Daughter at bedside Active Medications: Active Medications Hydrocodone Bitart/Acetaminophen (Pine 5/325) 1 tab PO Q6H PRN PRN Reason: Pain 5-10 Last Admin: 07/15/18 01:40 Dose: 1 tab Al Hydroxide/Mg Hydroxide (Milk Of Magnesia Liq) 30 ml PO Q12H PRN PRN Reason: Mild Constipation Bisacodyl (Dulcolax Supp) 10 mg RECTAL DAILY PRN PRN Reason: SEVERE CONSITIPATION Dextrose (D50w Vial) 50 ml IV.PUSH UNSCH PRN PRN Reason: PER HYPOGLYCEMIA PROTOCOL Last Admin: 07/15/18 05:59 Dose: 50 ml Glucagon (Glucagon Inj) 1 mg OTHER PRN PRN PRN Reason: for Hypoglycemia Protocol Sodium Chloride (Ns Inj) 1,000 mls @ 100 mls/hr IV.CONT .Q10H [facility] Last Admin: 07/15/18 01:41 Dose: 100 mls/hr Piperacillin/Tazobactam/Dextrose (Zosyn 3.375 Gm Premix) 50 mls @ 100 mls/hr IV.SIG Q8H [facility] Last Admin: 07/15/18 09:07 Dose: 100 mls/hr Vasopressin 40 unit/ Sodium (Chloride) 100 mls @ 6 mls/hr IV.CONT CONT [facility]; Protocol Last Infusion: 07/15/18 09:00 Dose: 0 units/min, 0 mls/hr Norepinephrine Bitartrate 4 mg (/ Sodium Chloride) 250 mls @ 7.5 mls/hr IV.SIG TITRATE PRN; Protocol PRN Reason: Per Protocol Potassium Chloride 20 meq/ (Sodium Chloride) 110 mls @ 55 mls/hr IV.SIG Q2H [facility] Stop: 07/15/18 13:59 Last Admin: 07/15/18 09:27 Dose: 55 mls/hr Insulin Aspart (Novolog Insulin Correctional Sugar Inj) 0 unit SQ TIDAC [facility]; Protocol Last Admin: 07/15/18 09:06 Dose: Not Given Lactulose (Lactulose Liq) 30 ml PO DAILY PRN PRN Reason: SEVERE CONSITIPATION Pantoprazole Sodium (Protonix Inj) 40 mg IV.PUSH Q24H [facility] Last Admin: 07/15/18 09:07 Dose: 40 mg Senna/Docusate Sodium (Bernadette-Colace) 1 tab PO BID [facility] Last Admin: 07/15/18 09:06 Dose: Not Given Sennosides (Senokot) 17.2 mg PO Q12H PRN PRN Reason: Moderate Constipation Sodium Chloride (Ns Flush) 2 ml IV.FLUSH PRN PRN PRN Reason: FLUSH AFTER USING IV ACCESS Allergies/Adverse Reactions: Allergies Allergy/AdvReac Type Severity Reaction Status Date / Time diatrizoate meglumine Allergy Severe Hives Verified 07/13/18 08:05 gadobenic acid Allergy Severe Hives Verified 07/13/18 08:05 gadodiamide Allergy Severe Hives Verified 07/13/18 08:05 gadoteridol Allergy Severe Hives Verified 07/13/18 08:05 iodixanol Allergy Severe Hives Verified 07/13/18 08:05 iohexol Allergy Severe Hives Verified 07/13/18 08:05 hydrocortisone Allergy Intermediate HIVES Verified 07/13/18 08:05 Review of Systems All other systems reviewed negative except as stated in HPI Physical Exam Vital signs: Vital Signs 07/14/18 12:00 07/14/18 16:00 07/14/18 19:58 Temperature 98.1 F 98.0 F Pulse Rate 71 80 Respiratory Rate 17 18 Blood Pressure 108/49 L 110/61 Pulse Oximetry 98 99 99 07/14/18 20:00 07/15/18 00:00 07/15/18 01:30 Temperature 97.4 F L 97.5 F L Pulse Rate 79 82 79 Respiratory Rate 19 14 13 Blood Pressure 117/56 L 101/52 L Pulse Oximetry 100 100 100 07/15/18 01:45 07/15/18 02:00 07/15/18 02:15 Temperature Pulse Rate 79 79 79 Respiratory Rate 12 13 23 Blood Pressure 89/46 L Pulse Oximetry 100 99 99 07/15/18 02:28 07/15/18 02:30 07/15/18 02:45 Temperature Pulse Rate 79 71 79 Respiratory Rate 25 H 22 14 Blood Pressure 100/54 L Pulse Oximetry 100 91 L 98 07/15/18 03:00 07/15/18 03:15 07/15/18 03:30 Temperature Pulse Rate 80 79 80 Respiratory Rate 20 12 13 Blood Pressure 97/49 L Pulse Oximetry 98 97 99 07/15/18 03:45 08/23/18 04:00 07/15/18 04:15 Temperature 97.5 F L Pulse Rate 80 80 80 Respiratory Rate 14 13 15 Blood Pressure 88/53 L 90/53 L Pulse Oximetry 98 97 98 07/15/18 04:30 07/15/18 04:45 07/15/18 05:00 Temperature Pulse Rate 80 80 80 Respiratory Rate 15 16 15 Blood Pressure 101/52 L 101/51 L 105/53 L Pulse Oximetry 97 97 97 07/15/18 05:15 07/15/18 05:30 07/15/18 05:45 Temperature Pulse Rate 80 80 80 Respiratory Rate 15 15 24 Blood Pressure 100/51 L 109/51 L 101/49 L Pulse Oximetry 96 97 97 07/15/18 06:00 07/15/18 06:08 07/15/18 06:15 Temperature Pulse Rate 81 79 79 Respiratory Rate 20 19 24 Blood Pressure 87/53 L 87/51 L 113/88 Pulse Oximetry 99 100 100 07/15/18 06:30 07/15/18 06:45 07/15/18 07:00 Temperature Pulse Rate 79 79 79 Respiratory Rate 17 26 H 17 Blood Pressure 114/53 L 112/55 L 111/53 L Pulse Oximetry 99 100 100 07/15/18 07:15 07/15/18 07:30 07/15/18 07:45 Temperature Pulse Rate 79 79 79 Respiratory Rate 21 21 22 Blood Pressure 106/50 L 102/50 L 103/53 L Pulse Oximetry 100 100 100 07/15/18 07:53 07/15/18 08:00 Temperature Pulse Rate 79 Respiratory Rate 18 Blood Pressure 103/51 L Pulse Oximetry 100 100 Intake & Output 07/14/18 07/15/18 07/15/18 18:59 06:59 18:59 Intake Total 2150 / 2150 1150 / 1150 Output Total 600 / 600 651 / 651 Balance 1550 / 1550 499 / 499 Weight 74.3 kg Intake: IV 1700 / 1700 1050 / 1050 NS Inj 1,000 ML @ 100 mls/hr IV 1000 / 1000 1000 / 1000 .CONT .Q10H [facility] Rx#:[id number] Pitressin Inj 40 UNIT In NS Inj 100 / 100 98 ML @ 0.04 UNITS/MIN 6 mls/ hr IV.CONT CONT [facility] Rx#: [id number] Levophed-Dextrose 4 mg/250 ml 250 / 250 Drip 4 mg In 250 ml @ 2 MCG/MIN 7.5 mls/hr IV.SIG TITRATE PRN Rx#:[id number] Zosyn 3.375 GM Premix 50 ML @ 100 / 100 50 / 50 100 mls/hr IV.SIG Q8H [facility] Rx#: [id number] Vancomycin Inj 1,000 MG In NS 250 / 250 Inj 250 ML @ 250 mls/hr IV.SIG ONCE ONE Rx#:[id number] Oral 450 / 450 100 / 100 Output: Stool / Urine Amount (Catheter) 600 / 600 650 / 650 Indwelling Temp Sensing 600 / 600 650 / 650 Catheter Other: Date of Last Bowel Movement 07/14/18 # Bowel Movements 0 Weight On Admission 75 kg Narrative: General: Alert, conversant, looks well Head: Atraumatic, Neck: Supple, airway widely patent, no obstructive noises. Lungs: Clear bilaterally, comfortable respiratory pattern, Heart: Normal S Abdomen: Soft, nondistended, no guarding, Extremities: Warm, well-perfused. No edema. Neuro: Oriented 3, alert, cooperative, conversant. Speech clear. Articulate follows motor requests. Right lower extremity right foot dorsiflexion weakness which she states is chronic slightly on the left mild chronic ecchymotic looking limbs - Constitutional no acute distress - Routine HEENT Exam Head: Present: normocephalic Eye: Present: EOMI - Urinary Catheter Management Indwelling Temp Sensing Catheter Cath placed during this visit: yes Reason for continuing: Hourly intake/output Insertion date: 07/13/18 Insertion time: 07:35 Objective Laboratory Results - last 24 hr 07/13/18 07/14/18 07/14/18 07:30 11:33 16:56 WBC RBC Hgb Hct MCV MCH MCHC RDW Plt Count MPV Prelim Diff (Auto) Neut % (Auto) Lymph % (Auto) Jewell % (Auto) Eos % (Auto) Baso % (Auto) Neut # (Auto) Lymph # (Auto) [place] # (Auto) Eos # (Auto) Baso # (Auto) WBC Differential Diff Scan Differential Comment Platelet Estimate Platelet Morphology Sodium Potassium Chloride Carbon Dioxide Anion Gap BUN Creatinine Estimated GFR POC Glucose 80 49 L* Random Glucose Calcium Prot Corrected Calcium B-Natriuretic Peptide Total Protein Urine Color Red Urine Clarity Cloudy H Urine pH 6.0 Ur Specific [place] 1.006 Urine Protein Negative Urine Glucose (UA) Negative Urine Ketones Negative Urine Occult Blood Moderate H Urine Nitrate Negative Urine Bilirubin Negative Urine Urobilinogen Less than 2 Ur Leukocyte Esterase Large H Urine RBC 15 H Urine WBC Urine WBC Clumps Many H Ur Squamous Epith Cells <1 Urine Bacteria Many H Micro UA Comment Cath-culture ind Urine Culture Comments Cath-cult indicated Random Vancomycin 07/14/18 07/14/18 07/15/18 17:36 21:09 05:30 WBC 13.1 H RBC 2.91 L Hgb 8.4 L Hct 25.5 L MCV 87.6 MCH 29.0 MCHC 33.1 RDW 16.8 Plt Count 73 L MPV 9.2 Prelim Diff (Auto) Slide review pending Neut % (Auto) 85.5 H Lymph % (Auto) 6.2 L Jewell % (Auto) 7.4 Eos % (Auto) 0.9 Baso % (Auto) 0.0 Neut # (Auto) 11.2 H Lymph # (Auto) 0.8 L [place] # (Auto) 1.0 H Eos # (Auto) 0.1 Baso # (Auto) 0.0 WBC Differential . Diff Scan Auto diff confirmed Differential Comment . Platelet Estimate Low L Platelet Morphology Normal Sodium Potassium Chloride Carbon Dioxide Anion Gap BUN Creatinine Estimated GFR POC Glucose 242 H 245 H Random Glucose Calcium Prot Corrected Calcium B-Natriuretic Peptide Total Protein Urine Color Urine Clarity Urine pH Ur Specific [place] Urine Protein Urine Glucose (UA) Urine Ketones Urine Occult Blood Urine Nitrate Urine Bilirubin Urine Urobilinogen Ur Leukocyte Esterase Urine RBC Urine WBC Urine WBC Clumps Ur Squamous Epith Cells Urine Bacteria Micro UA Comment Urine Culture Comments Random Vancomycin 07/15/18 07/15/18 07/15/18 05:30 05:30 05:48 WBC RBC Hgb Hct MCV MCH MCHC RDW Plt Count MPV Prelim Diff (Auto) Neut % (Auto) Lymph % (Auto) Jewell % (Auto) Eos % (Auto) Baso % (Auto) Neut # (Auto) Lymph # (Auto) Jewell # (Auto) Eos # (Auto) Baso # (Auto) WBC Differential Diff Scan Differential Comment Platelet Estimate Platelet Morphology Sodium 149 H Potassium 2.6 L* D Chloride 118 H Carbon Dioxide 20.5 L Anion Gap 11 BUN 50 H Creatinine 1.59 H Estimated GFR 31 L POC Glucose 33 L* Random Glucose 33 L* Calcium 6.7 L* Prot Corrected Calcium 8.2 L B-Natriuretic Peptide 318 H Total Protein 4.2 L Urine Color Urine Clarity Urine pH Ur Specific [place] Urine Protein Urine Glucose (UA) Urine Ketones Urine Occult Blood Urine Nitrate Urine Bilirubin Urine Urobilinogen Ur Leukocyte Esterase Urine RBC Urine WBC Urine WBC Clumps Ur Squamous Epith Cells Urine Bacteria Micro UA Comment Urine Culture Comments Random Vancomycin 17.1 07/15/18 07/15/18 07/15/18 05:50 06:12 09:04 WBC RBC Hgb Hct MCV MCH MCHC RDW Plt Count MPV Prelim Diff (Auto) Neut % (Auto) Lymph % (Auto) Jewell % (Auto) Eos % (Auto) Baso % (Auto) Neut # (Auto) Lymph # (Auto) Jewell # (Auto) Eos # (Auto) Baso # (Auto) WBC Differential Diff Scan Differential Comment Platelet Estimate Platelet Morphology Sodium Potassium Chloride Carbon Dioxide Anion Gap BUN Creatinine Estimated GFR POC Glucose 34 L* 183 H 99 Random Glucose Calcium Prot Corrected Calcium B-Natriuretic Peptide Total Protein Urine Color Urine Clarity Urine pH Ur Specific [place] Urine Protein Urine Glucose (UA) Urine Ketones Urine Occult Blood Urine Nitrate Urine Bilirubin Urine Urobilinogen Ur Leukocyte Esterase Urine RBC Urine WBC Urine WBC Clumps Ur Squamous Epith Cells Urine Bacteria Micro UA Comment Urine Culture Comments Random Vancomycin Microbiology 07/13/18 07:30 Urine Culture - Final Catheterized Urine Klebsiella pneumoniae 07/13/18 07:45 Aerobic Blood Culture - Preliminary Blood - Peripheral No growth in 1 day Anaerobic Blood Culture - Preliminary No growth in 1 day 07/13/18 07:45 Aerobic Blood Culture - Preliminary Blood - Peripheral No growth in 1 day Anaerobic Blood Culture - Preliminary No growth in 1 day Review/Management - Diagnosis (1) Pacemaker Code(s): Z95.0 - Presence of cardiac pacemaker Status: Acute Current Visit: Yes (2) Diabetic peripheral neuropathy Code(s): E11.42 - Type 2 diabetes mellitus with diabetic polyneuropathy Status : Acute Current Visit: Yes (3) Altered mental status Code(s): R41.82 - Altered mental status, unspecified Status: Acute Current Visit: Yes (4) Sepsis Code(s): A41.9 - Sepsis, unspecified organism Status: Acute Current Visit: Yes (5) Hypoglycemia Code(s): E16.2 - Hypoglycemia, unspecified Status: Acute Current Visit: Yes (6) Right carotid artery occlusion Code(s): I65.21 - Occlusion and stenosis of right carotid artery Status: Acute Current Visit: Yes - Review/Management Plan: Send clear for episode of speech impairment and weakness is more related to possible developing sepsis picture, hypoglycemia versus a TIA. Carotid ultrasound demonstrating a right carotid occlusion and left carotid 60% stenosis. She likely had a hypo-perfusion related TIA. She has a pacemaker she is not a candidate for an MRI. With her elevated creatinine CTAs would be difficult to achieve without compromising kidney function At high risk for intervention of the left carotid medical management Recommendations Neuro exam stable Blood pressures improved Floor planning once off pressors completely PT eval Discussed with patient and daughter (3) Altered mental status Qualifiers: Altered mental status type: unspecified Qualified Code(s): R41.82 - Altered mental status, unspecified (4) Sepsis Qualifiers: Sepsis type: sepsis due to unspecified organism Qualified Code(s): A41.9 - Sepsis, unspecified organism
--- NOTE | 2018-07-15 12:22 | P.PNCA ---
Subjective Interval history: No events overnight Vasopressin now off Physical Exam Vital signs: Vital Signs 07/14/18 16:00 07/14/18 19:58 07/14/18 20:00 Temperature 98.0 F 97.4 F L Pulse Rate 80 79 Respiratory Rate 18 19 Blood Pressure 110/61 117/56 L Pulse Oximetry 99 99 100 07/15/18 00:00 07/15/18 01:30 07/15/18 01:45 Temperature 97.5 F L Pulse Rate 82 79 79 Respiratory Rate 14 13 12 Blood Pressure 101/52 L Pulse Oximetry 100 100 100 07/15/18 02:00 07/15/18 02:15 07/15/18 02:28 Temperature Pulse Rate 79 79 79 Respiratory Rate 13 23 25 H Blood Pressure 89/46 L 100/54 L Pulse Oximetry 99 99 100 07/15/18 02:30 07/15/18 02:45 07/15/18 03:00 Temperature Pulse Rate 71 79 80 Respiratory Rate 22 14 20 Blood Pressure 97/49 L Pulse Oximetry 91 L 98 98 07/15/18 03:15 07/15/18 03:30 07/15/18 03:45 Temperature Pulse Rate 79 80 80 Respiratory Rate 12 13 14 Blood Pressure Pulse Oximetry 97 99 98 07/15/18 04:00 07/15/18 04:15 07/15/18 04:30 Temperature 97.5 F L Pulse Rate 80 80 80 Respiratory Rate 13 15 15 Blood Pressure 88/53 L 90/53 L 101/52 L Pulse Oximetry 97 98 97 07/15/18 04:45 07/15/18 05:00 07/15/18 05:15 Temperature Pulse Rate 80 80 80 Respiratory Rate 16 15 15 Blood Pressure 101/51 L 105/53 L 100/51 L Pulse Oximetry 97 97 96 07/15/18 05:30 07/15/18 05:45 07/15/18 06:00 Temperature Pulse Rate 80 80 81 Respiratory Rate 15 24 20 Blood Pressure 109/51 L 101/49 L 87/53 L Pulse Oximetry 97 97 99 07/15/18 06:08 07/15/18 06:15 07/15/18 06:30 Temperature Pulse Rate 79 79 79 Respiratory Rate 19 24 17 Blood Pressure 87/51 L 113/88 114/53 L Pulse Oximetry 100 100 99 07/15/18 06:45 07/15/18 07:00 08/23/18 07:15 Temperature Pulse Rate 79 79 79 Respiratory Rate 26 H 17 21 Blood Pressure 112/55 L 111/53 L 106/50 L Pulse Oximetry 100 100 100 07/15/18 07:30 07/15/18 07:45 07/15/18 07:53 Temperature Pulse Rate 79 79 Respiratory Rate 21 22 Blood Pressure 102/50 L 103/53 L Pulse Oximetry 100 100 100 07/15/18 08:00 Temperature Pulse Rate 79 Respiratory Rate 18 Blood Pressure 103/51 L Pulse Oximetry 100 Intake & Output 07/14/18 07/15/18 07/15/18 18:59 06:59 18:59 Intake Total 2150 / 2150 1150 / 1150 1160 / 1160 Output Total 600 / 600 651 / 651 Balance 1550 / 1550 499 / 499 1160 / 1160 Weight 74.3 kg Intake: IV 1700 / 1700 1050 / 1050 1160 / 1160 NS Inj 1,000 ML @ 100 mls/hr IV 1000 / 1000 1000 / 1000 1000 / 1000 .CONT .Q10H [facility] Rx#:[id number] Pitressin Inj 40 UNIT In NS Inj 100 / 100 98 ML @ 0.04 UNITS/MIN 6 mls/ hr IV.CONT CONT [facility] Rx#: [id number] Levophed-Dextrose 4 mg/250 ml 250 / 250 Drip 4 mg In 250 ml @ 2 MCG/MIN 7.5 mls/hr IV.SIG TITRATE PRN Rx#:[id number] Zosyn 3.375 GM Premix 50 ML @ 100 / 100 50 / 50 50 / 50 100 mls/hr IV.SIG Q8H [facility] Rx#: [id number] KCl Inj 20 MEQ In NS Inj 100 ML 110 / 110 @ 55 mls/hr IV.SIG Q2H [facility] Rx# :[id number] Vancomycin Inj 1,000 MG In NS 250 / 250 Inj 250 ML @ 250 mls/hr IV.SIG ONCE ONE Rx#:[id number] Oral 450 / 450 100 / 100 Output: Stool 1 / 1 Urine Amount (Catheter) 600 / 600 650 / 650 Indwelling Temp Sensing 600 / 600 650 / 650 Catheter Other: Date of Last Bowel Movement 07/14/18 # Bowel Movements 0 Weight On Admission 75 kg Narrative: General: Alert, conversant, looks well Head: Atraumatic, Neck: Supple, airway widely patent, no obstructive noises. Lungs: Clear bilaterally, comfortable respiratory pattern, Heart: Normal S Abdomen: Soft, nondistended, no guarding, Extremities: Warm, well-perfused. No edema. Neuro: Oriented 3, alert, cooperative, conversant. Speech clear. Articulate follows motor requests. Right lower extremity right foot dorsiflexion weakness which she states is chronic slightly on the left mild chronic ecchymotic looking limbs - Urinary Catheter Management Indwelling Temp Sensing Catheter Cath placed during this visit: yes Reason for continuing: Hourly intake/output Insertion date: 07/13/18 Insertion time: 07:35 Assessment and Plan - Assessment (1) H/O mitral valve repair Code(s): Z98.890 - Other specified postprocedural states Status: Acute (2) Altered mental status Code(s): R41.82 - Altered mental status, unspecified Status: Acute (3) Sepsis Code(s): A41.9 - Sepsis, unspecified organism Status: Acute (4) Hypoglycemia Code(s): E16.2 - Hypoglycemia, unspecified Status: Acute (5) Pacemaker Code(s): Z95.0 - Presence of cardiac pacemaker Status: Acute (6) Right carotid artery occlusion Code(s): I65.21 - Occlusion and stenosis of right carotid artery Status: Acute - Plan 1) Acute mental status change Possible due to hypoglycemia, sepsis with UTI, or TIA due to hypoperfusion with carotid disease 2) No history of AFib on previous interrogations in the office 3) Hx of mitral valve repair and CABG 4) Attempt to wean Vasopressin But will have to be careful of hypotension with known carotid disease Currently off 5) Repeat echo showing an EF of 50-55%, same as previous 6) Thrombocytopenia 7) Carotid disease Per neurology, plan to con't medical management (2) Altered mental status Qualifiers: Altered mental status type: unspecified Qualified Code(s): R41.82 - Altered mental status, unspecified (3) Sepsis Qualifiers: Sepsis type: sepsis due to unspecified organism Qualified Code(s): A41.9 - Sepsis, unspecified organism
[2018-07-15] MEDS: Vasopressin Inj 40 UNIT in Sodium Chlor 0.9% Inj 98 ML IV.CONT SCH (13:58)
[2018-07-16] MEDS: Piperacil/Tazo 3.375 GM Premix 50 ML IV.SIG SCH ×3 (02:06→17:13)
[2018-07-16 07:24] LABS: Eos # (Auto) 0.1 th/mm3 (0.0-0.4); Eos % (Auto) 0.5 % (0.0-4.0); Hematocrit 24.3 % (35.0-46.0); Lymph # (Auto) 0.9 th/mm3 (1.0-4.8); Lymph % (Auto) 6.2 % (9.0-44.0); Mean Corpuscular HGB Conc 32.8 % (32.0-36.0); Mean Corpuscular Hemoglobin 28.8 pg (27.0-34.0); Mean Platelet Volume 9.1 fL (7.0-11.0); Mono # (Auto) 0.8 th/mm3 (0.0-0.9); Mono % (Auto) 5.7 % (0.0-8.0); Neut # (Auto) 12.4 th/mm3 (1.8-7.7); Neut % (Auto) 87.6 % (16.0-70.0); Platelet Count 73 th/mm3 (150-450); Red Blood Count 2.76 mil/mm3 (4.00-5.30); Red Cell Distribution Width 16.9 % (11.6-17.2); White Blood Count 14.2 th/mm3 (4.0-11.0)
[2018-07-16 07:40] LABS: Calcium 6.7 mg/dL (8.5-10.1); Carbon Dioxide 20.4 meq/L (21.0-32.0)
[2018-07-16 08:02] LABS: Total Protein 4.2 g/dL (6.4-8.2)
[2018-07-16] MEDS: Pantoprazole Inj 40 MG Vial IV.PUSH SCH (09:25)
[2018-07-16] MEDS: Insulin NovoLOG Aspart Correctional Sugar Inj SQ SCH ×3 (09:26→17:12)
[2018-07-16] MEDS: Senna/Docusate Sodium 8.6/50 MG Tablet PO SCH ×2 (09:26→21:44)
[2018-07-16] MEDS: Sod Chloride 0.9% Inj 1,000 ML IV.CONT SCH ×2 (09:27→18:45)
[2018-07-16 10:08] LABS: Platelet Morphology Normal (Normal)
[2018-07-16 10:30] LABS: Potassium 2.8 meq/L (3.5-5.1)
--- NOTE | 2018-07-16 10:40 | P.PNIM ---
Subjective Interval history: Blood sugars have increased debility after discontinuing long-acting insulin. Patient's previous hyperglycemia may have been related to her septic state. P.o. intake is low at this point so her insulin demand likely to be lower. Once she resumes improved p.o. intake she may need resumption of long-acting insulins. No acute distress today. Physical Exam Vital signs: Vital Signs 07/15/18 10:30 07/15/18 10:45 07/15/18 10:51 Temperature Pulse Rate 85 79 79 Respiratory Rate 13 14 15 Blood Pressure 80/39 L Pulse Oximetry 100 100 100 07/15/18 11:00 07/15/18 11:15 07/15/18 11:30 Temperature Pulse Rate 84 84 79 Respiratory Rate 21 21 17 Blood Pressure 93/54 L Pulse Oximetry 100 100 100 07/15/18 11:45 07/15/18 12:00 07/15/18 12:15 Temperature Pulse Rate 80 79 79 Respiratory Rate 19 15 11 L Blood Pressure 102/47 L 119/51 L Pulse Oximetry 100 99 99 07/15/18 12:30 07/15/18 12:45 07/15/18 13:00 Temperature Pulse Rate 81 80 79 Respiratory Rate 19 17 8 L Blood Pressure Pulse Oximetry 100 99 99 07/15/18 13:15 07/15/18 13:28 07/15/18 13:30 Temperature Pulse Rate 71 85 84 Respiratory Rate 13 18 14 Blood Pressure 133/63 Pulse Oximetry 99 100 100 07/15/18 13:45 07/15/18 14:00 07/15/18 14:01 Temperature Pulse Rate 82 84 84 Respiratory Rate 12 10 L 6 L Blood Pressure 123/59 L 128/86 Pulse Oximetry 99 99 99 07/15/18 14:15 07/15/18 14:16 07/15/18 14:30 Temperature Pulse Rate 86 86 87 Respiratory Rate 12 14 11 L Blood Pressure 113/69 Pulse Oximetry 98 99 99 07/15/18 14:31 07/15/18 14:45 07/15/18 14:46 Temperature Pulse Rate 86 87 80 Respiratory Rate 14 9 L 9 L Blood Pressure 120/55 L 127/56 L Pulse Oximetry 99 99 99 07/15/18 15:00 07/15/18 15:01 07/15/18 15:15 Temperature Pulse Rate 73 82 80 Respiratory Rate 18 18 18 Blood Pressure 147/63 H Pulse Oximetry 99 99 99 07/15/18 15:16 07/15/18 15:30 07/15/18 15:31 Temperature Pulse Rate 82 82 90 Respiratory Rate 20 16 14 Blood Pressure 139/58 L 116/55 L Pulse Oximetry 99 100 100 07/15/18 15:45 07/15/18 15:46 07/15/18 16:00 Temperature Pulse Rate 79 72 90 Respiratory Rate 18 18 21 Blood Pressure 97/47 L Pulse Oximetry 99 99 98 07/15/18 16:01 07/15/18 16:15 07/15/18 16:30 Temperature Pulse Rate 90 88 74 Respiratory Rate 18 22 19 Blood Pressure 97/47 L Pulse Oximetry 98 100 98 07/15/18 16:31 07/15/18 16:45 07/15/18 16:46 Temperature Pulse Rate 81 80 89 Respiratory Rate 19 18 16 Blood Pressure 135/49 L 103/49 L Pulse Oximetry 98 98 98 07/15/18 17:00 07/15/18 17:01 07/15/18 17:15 Temperature Pulse Rate 91 H 91 H 89 Respiratory Rate 12 14 16 Blood Pressure 113/53 L Pulse Oximetry 99 99 97 07/15/18 17:16 07/15/18 17:30 07/15/18 17:31 Temperature Pulse Rate 89 92 H 91 H Respiratory Rate 16 19 19 Blood Pressure 114/53 L 121/55 L Pulse Oximetry 97 100 99 07/15/18 17:45 07/15/18 17:46 07/15/18 18:00 Temperature Pulse Rate 89 89 89 Respiratory Rate 18 17 16 Blood Pressure 109/49 L Pulse Oximetry 98 98 99 07/15/18 18:01 07/15/18 20:00 07/15/18 20:06 Temperature 97.7 F Pulse Rate 88 88 Respiratory Rate 16 19 Blood Pressure 95/51 L 114/57 L Pulse Oximetry 99 99 99 07/16/18 00:00 07/16/18 04:00 07/16/18 10:20 Temperature 97.8 F 97.7 F Pulse Rate 83 88 Respiratory Rate 12 16 Blood Pressure 128/60 117/57 L Pulse Oximetry 99 98 98 Intake & Output 07/15/18 07/16/18 07/16/18 18:59 06:59 18:59 Intake Total 2019 1300 / 1300 960 / 960 Output Total 650 / 650 Balance 1370 / 1370 1300 / 1300 960 / 960 Weight 78.7 kg Intake: IV 1420 / 1420 1050 / 1050 960 / 960 NS Inj 1,000 ML @ 100 mls/hr IV 1000 / 1000 1000 / 1000 850 / 850 .CONT .Q10H [facility] Rx#:[id number] Pitressin Inj 40 UNIT In NS Inj 100 / 100 60 / 60 98 ML @ 0.04 UNITS/MIN 6 mls/ hr IV.CONT CONT [facility] Rx#: [id number] Zosyn 3.375 GM Premix 50 ML @ 100 / 100 50 / 50 50 / 50 100 mls/hr IV.SIG Q8H [facility] Rx#: [id number] KCl Inj 20 MEQ In NS Inj 100 ML 220 / 220 @ 55 mls/hr IV.SIG Q2H [facility] Rx# :[id number] Oral 600 / 600 250 / 250 Output: Urine Amount (Catheter) 650 / 650 Indwelling Temp Sensing 650 / 650 Catheter Other: Date of Last Bowel Movement 07/15/18 07/14/18 # Bowel Movements 1 Narrative: GENERAL: NAD, A&Ox3, difficulty hearing HEAD: Normocephalic. NECK: Supple, trachea midline. No lymphadenopathy. EYES: No scleral icterus. No injection or drainage. CARDIOVASCULAR: Regular rate and rhythm without murmurs, gallops, or rubs. RESPIRATORY: Breath sounds equal bilaterally. No accessory muscle use. GASTROINTESTINAL: Abdomen soft, non-tender, nondistended. MUSCULOSKELETAL: No cyanosis, or edema. SKIN: Warm and dry. NEURO: No focal neurological deficits. - Urinary Catheter Management Indwelling Temp Sensing Catheter Cath placed during this visit: yes Reason for continuing: Hourly intake/output Insertion date: 07/13/18 Insertion time: 07:35 Results - Labs CBC & Chem 7: 07/16/18 06:00 07/16/18 06:00 Laboratory Results - last 24 hr 07/15/18 07/15/18 07/15/18 11:31 17:22 21:36 WBC RBC Hgb Hct MCV MCH MCHC RDW Plt Count MPV Prelim Diff (Auto) Neut % (Auto) Lymph % (Auto) [place] % (Auto) Eos % (Auto) Baso % (Auto) Neut # (Auto) Lymph # (Auto) [place] # (Auto) Eos # (Auto) Baso # (Auto) WBC Differential Diff Scan Differential Comment Platelet Estimate Platelet Morphology Sodium Potassium Chloride Carbon Dioxide Anion Gap BUN Creatinine Estimated GFR POC Glucose 81 57 L 53 L Random Glucose Calcium Prot Corrected Calcium Total Protein 07/15/18 07/16/18 07/16/18 22:01 06:00 06:00 WBC 14.2 H RBC 2.76 L Hgb 8.0 L Hct 24.3 L MCV 88.0 MCH 28.8 MCHC 32.8 RDW 16.9 Plt Count 73 L MPV 9.1 Prelim Diff (Auto) Slide review pending Neut % (Auto) 87.6 H Lymph % (Auto) 6.2 L [place] % (Auto) 5.7 Eos % (Auto) 0.5 Baso % (Auto) 0.0 Neut # (Auto) 12.4 H Lymph # (Auto) 0.9 L [place] # (Auto) 0.8 Eos # (Auto) 0.1 Baso # (Auto) 0.0 WBC Differential . Diff Scan Auto diff confirmed Differential Comment . Platelet Estimate Low L Platelet Morphology Normal Sodium 148 H Potassium Chloride 120 H Carbon Dioxide 20.4 L Anion Gap 8 BUN 35 H Creatinine 1.35 H Estimated GFR 37 L POC Glucose 128 H Random Glucose 66 L Calcium 6.7 L* Prot Corrected Calcium 8.2 L Total Protein 4.2 L Microbiology 07/13/18 07:45 Blood - Peripheral Aerobic Blood Culture - Preliminary No growth in 2 days 07/13/18 07:45 Blood - Peripheral Anaerobic Blood Culture - Preliminary No growth in 2 days 07/13/18 07:45 Blood - Peripheral Aerobic Blood Culture - Preliminary No growth in 2 days 07/13/18 07:45 Blood - Peripheral Anaerobic Blood Culture - Preliminary No growth in 2 days 07/13/18 07:30 Catheterized Urine Urine Culture - Final Klebsiella pneumoniae Assessment and Plan - Assessment (1) Hyperglycemia Code(s): R73.9 - Hyperglycemia, unspecified Status: Acute (2) Altered mental status Code(s): R41.82 - Altered mental status, unspecified Status: Acute (3) Sepsis Code(s): A41.9 - Sepsis, unspecified organism Status: Acute - Plan 87-year-old female admitted with UTI and septic shock and altered mental status. Patient stable for transfer out of ICU. Continue to monitor for stability. group home facility is likely needed at discharge. septic shock Resolved Levophed has been discontinued healthcare associated urinary tract infection Continue Zosyn Follow urine cultures Probiotic acute hypoglycemia Diabetes mellitus type 2 Hypoglycemia improving Long-acting insulins discontinued Follow blood sugars closely Low-dose sliding scale is present if any recurrence of hyperglycemia occurs Diabetic diet resumed, encourage p.o. intake acute metabolic encephalopathy Likely related to septic state and UTI improving Continue treating infection as above Avoid sedatives history of CHF Suspected diastolic type CHF Caution with fluids Monitor clinically for any evidence of fluid overload Ejection fraction on echocardiogram is 50-55%. 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
[2018-07-16] MEDS ORDERED: Potassium Chloride Inj 20 MEQ/10 ML Vial IV.SIG ONE (11:00)
[2018-07-16] MEDS ORDERED: Potassium Chlor 40 mEq Premix 40 MEQ/100 ML PIGGYBACK IV.SIG ONE (11:00)
[2018-07-16] MEDS: Potassium Chloride 25 MEQ Effervescent Tablet PO ONE ×2 (12:46→15:01)
[2018-07-16] MEDS: Lactobacillus Acidophilus/L. Spores Tablet PO SCH ×2 (12:47→17:13)
--- NOTE | 2018-07-16 16:28 | P.PNNEU ---
Subjective Subjective Comments: Denies any headache fever night sweats or dyspnea Active Medications: Active Medications Hydrocodone Bitart/Acetaminophen ([place] 5/325) 1 tab PO Q6H PRN PRN Reason: Pain 5-10 Last Admin: 07/16/18 09:24 Dose: 1 tab Al Hydroxide/Mg Hydroxide (Milk Of Magnesia Liq) 30 ml PO Q12H PRN PRN Reason: Mild Constipation Bisacodyl (Dulcolax Supp) 10 mg RECTAL DAILY PRN PRN Reason: SEVERE CONSITIPATION Clopidogrel Bisulfate (Plavix) 75 mg PO DAILY [facility] Last Admin: 07/16/18 09:24 Dose: 75 mg Dextrose (D50w Vial) 50 ml IV.PUSH UNSCH PRN PRN Reason: PER HYPOGLYCEMIA PROTOCOL Last Admin: 07/15/18 21:30 Dose: 50 ml Glucagon (Glucagon Inj) 1 mg OTHER PRN PRN PRN Reason: for Hypoglycemia Protocol Sodium Chloride (Ns Inj) 1,000 mls @ 100 mls/hr IV.CONT .Q10H [facility] Last Admin: 07/16/18 09:27 Dose: 100 mls/hr Piperacillin/Tazobactam/Dextrose (Zosyn 3.375 Gm Premix) 50 mls @ 100 mls/hr IV.SIG Q8H [facility] Last Infusion: 07/16/18 10:25 Dose: Infused Norepinephrine Bitartrate 4 mg (/ Sodium Chloride) 250 mls @ 7.5 mls/hr IV.SIG TITRATE PRN; Protocol PRN Reason: Per Protocol Insulin Aspart (Novolog Insulin Correctional Sugar Inj) 0 unit SQ TIDAC [facility]; Protocol Last Admin: 07/16/18 12:44 Dose: Not Given Lactobacillus Acidophilus (Lactinex) 1 tab PO TID [facility] Last Admin: 07/16/18 12:47 Dose: 1 tab Lactulose (Lactulose Liq) 30 ml PO DAILY PRN PRN Reason: SEVERE CONSITIPATION Pantoprazole Sodium (Protonix Inj) 40 mg IV.PUSH Q24H [facility] Last Admin: 07/16/18 09:25 Dose: 40 mg Senna/Docusate Sodium (Bernadette-Colace) 1 tab PO BID [facility] Last Admin: 07/16/18 09:26 Dose: Not Given Sennosides (Senokot) 17.2 mg PO Q12H PRN PRN Reason: Moderate Constipation Sodium Chloride (Ns Flush) 2 ml IV.FLUSH PRN PRN PRN Reason: FLUSH AFTER USING IV ACCESS Last Admin: 07/16/18 09:25 Dose: 2 ml Allergies/Adverse Reactions: Allergies Allergy/AdvReac Type Severity Reaction Status Date / Time diatrizoate meglumine Allergy Severe Hives Verified 07/13/18 08:05 gadobenic acid Allergy Severe Hives Verified 07/13/18 08:05 gadodiamide Allergy Severe Hives Verified 07/13/18 08:05 gadoteridol Allergy Severe Hives Verified 07/13/18 08:05 iodixanol Allergy Severe Hives Verified 07/13/18 08:05 iohexol Allergy Severe Hives Verified 07/13/18 08:05 hydrocortisone Allergy Intermediate HIVES Verified 07/13/18 08:05 Review of Systems All other systems reviewed negative except as stated in HPI Physical Exam Vital signs: Vital Signs 07/15/18 16:30 07/15/18 16:31 07/15/18 16:45 Temperature Pulse Rate 74 81 80 Respiratory Rate 19 19 18 Blood Pressure 135/49 L Pulse Oximetry 98 98 98 07/15/18 16:46 07/15/18 17:00 07/15/18 17:01 Temperature Pulse Rate 89 91 H 91 H Respiratory Rate 16 12 14 Blood Pressure 103/49 L 113/53 L Pulse Oximetry 98 99 99 07/15/18 17:15 07/15/18 17:16 07/15/18 17:30 Temperature Pulse Rate 89 89 92 H Respiratory Rate 16 16 19 Blood Pressure 114/53 L Pulse Oximetry 97 97 100 07/15/18 17:31 07/15/18 17:45 07/15/18 17:46 Temperature Pulse Rate 91 H 89 89 Respiratory Rate 19 18 17 Blood Pressure 121/55 L 109/49 L Pulse Oximetry 99 98 98 07/15/18 18:00 07/15/18 18:01 07/15/18 20:00 Temperature 97.7 F Pulse Rate 89 88 88 Respiratory Rate 16 16 19 Blood Pressure 95/51 L 114/57 L Pulse Oximetry 99 99 99 07/15/18 20:06 07/16/18 00:00 07/16/18 04:00 Temperature 97.8 F 97.7 F Pulse Rate 83 88 Respiratory Rate 12 16 Blood Pressure 128/60 117/57 L Pulse Oximetry 99 99 98 07/16/18 07:00 07/16/18 07:14 07/16/18 07:44 Temperature Pulse Rate 93 H 96 H 86 Respiratory Rate 21 17 15 Blood Pressure 115/56 L 101/49 L 113/49 L Pulse Oximetry 100 100 99 07/16/18 08:00 07/16/18 08:14 07/16/18 08:44 Temperature Pulse Rate 88 87 100 H Respiratory Rate 16 16 25 H Blood Pressure 105/50 L 119/52 L Pulse Oximetry 100 100 100 07/16/18 09:00 07/16/18 09:14 07/16/18 09:44 Temperature Pulse Rate 102 H 100 H 90 Respiratory Rate 16 13 18 Blood Pressure 109/53 L 97/46 L Pulse Oximetry 100 100 98 07/16/18 10:00 07/16/18 10:14 07/16/18 10:20 Temperature Pulse Rate 88 79 Respiratory Rate 15 15 Blood Pressure 82/46 L Pulse Oximetry 99 98 98 07/16/18 10:21 07/16/18 11:00 07/16/18 11:14 Temperature Pulse Rate 79 88 80 Respiratory Rate 15 16 13 Blood Pressure 114/47 L 105/53 L Pulse Oximetry 97 97 96 07/16/18 11:44 07/16/18 12:00 07/16/18 12:14 Temperature Pulse Rate 79 93 H 90 Respiratory Rate 17 23 16 Blood Pressure 107/52 L 100/49 L Pulse Oximetry 99 99 98 07/16/18 12:44 07/16/18 13:00 07/16/18 13:14 Temperature Pulse Rate 92 H 89 89 Respiratory Rate 18 17 15 Blood Pressure 105/51 L 111/57 L Pulse Oximetry 100 100 100 Intake & Output 07/15/18 07/16/18 07/16/18 18:59 06:59 18:59 Intake Total 2019 1300 / 1300 960 / 960 Output Total 650 / 650 Balance 1370 / 1370 1300 / 1300 960 / 960 Weight 78.7 kg Intake: IV 1420 / 1420 1050 / 1050 960 / 960 NS Inj 1,000 ML @ 100 mls/hr IV 1000 / 1000 1000 / 1000 850 / 850 .CONT .Q10H [facility] Rx#:[id number] Pitressin Inj 40 UNIT In NS Inj 100 / 100 60 / 60 98 ML @ 0.04 UNITS/MIN 6 mls/ hr IV.CONT CONT [facility] Rx#: [id number] Zosyn 3.375 GM Premix 50 ML @ 100 / 100 50 / 50 50 / 50 100 mls/hr IV.SIG Q8H [facility] Rx#: [id number] KCl Inj 20 MEQ In NS Inj 100 ML 220 / 220 @ 55 mls/hr IV.SIG Q2H [facility] Rx# :[id number] Oral 600 / 600 250 / 250 Output: Urine Amount (Catheter) 650 / 650 Indwelling Temp Sensing 650 / 650 Catheter Other: Date of Last Bowel Movement 07/15/18 07/14/18 07/16/18 # Bowel Movements 1 Narrative: General: Alert, conversant, looks well Head: Atraumatic, Neck: Supple, airway widely patent, no obstructive noises. Lungs: Clear bilaterally, comfortable respiratory pattern, Heart: Normal S Abdomen: Soft, nondistended, no guarding, Extremities: Warm, No edema. Neuro: Oriented 3, alert, cooperative, conversant. Speech clear. Articulate follows motor requests. Right lower extremity right foot dorsiflexion weakness which she states is chronic slightly on the left mild chronic ecchymotic looking limbs - Constitutional no acute distress - Routine HEENT Exam Head: Present: normocephalic Eye: Present: EOMI - Urinary Catheter Management Indwelling Temp Sensing Catheter Cath placed during this visit: yes Reason for continuing: Hourly intake/output Insertion date: 07/13/18 Insertion time: 07:35 Objective Laboratory Results - last 24 hr 07/15/18 07/15/18 07/15/18 17:22 21:36 22:01 WBC RBC Hgb Hct MCV MCH MCHC RDW Plt Count MPV Prelim Diff (Auto) Neut % (Auto) Lymph % (Auto) [place] % (Auto) Eos % (Auto) Baso % (Auto) Neut # (Auto) Lymph # (Auto) [place] # (Auto) Eos # (Auto) Baso # (Auto) WBC Differential Diff Scan Differential Comment Platelet Estimate Platelet Morphology Sodium Potassium Chloride Carbon Dioxide Anion Gap BUN Creatinine Estimated GFR POC Glucose 57 L 53 L 128 H Random Glucose Calcium Prot Corrected Calcium Total Protein 07/16/18 07/16/18 07/16/18 06:00 06:00 12:40 WBC 14.2 H RBC 2.76 L Hgb 8.0 L Hct 24.3 L MCV 88.0 MCH 28.8 MCHC 32.8 RDW 16.9 Plt Count 73 L MPV 9.1 Prelim Diff (Auto) Slide review pending Neut % (Auto) 87.6 H Lymph % (Auto) 6.2 L [place] % (Auto) 5.7 Eos % (Auto) 0.5 Baso % (Auto) 0.0 Neut # (Auto) 12.4 H Lymph # (Auto) 0.9 L [place] # (Auto) 0.8 Eos # (Auto) 0.1 Baso # (Auto) 0.0 WBC Differential . Diff Scan Auto diff confirmed Differential Comment . Platelet Estimate Low L Platelet Morphology Normal Sodium 148 H Potassium 2.8 L* Chloride 120 H Carbon Dioxide 20.4 L Anion Gap 8 BUN 35 H Creatinine 1.35 H Estimated GFR 37 L POC Glucose 51 L Random Glucose 66 L Calcium 6.7 L* Prot Corrected Calcium 8.2 L Total Protein 4.2 L Microbiology 07/13/18 07:45 Aerobic Blood Culture - Preliminary Blood - Peripheral No growth in 3 days Anaerobic Blood Culture - Preliminary No growth in 3 days 07/13/18 07:45 Aerobic Blood Culture - Preliminary Blood - Peripheral No growth in 3 days Anaerobic Blood Culture - Preliminary No growth in 3 days Review/Management - Diagnosis (1) Pacemaker Code(s): Z95.0 - Presence of cardiac pacemaker Status: Acute Current Visit: Yes (2) Diabetic peripheral neuropathy Code(s): E11.42 - Type 2 diabetes mellitus with diabetic polyneuropathy Status : Acute Current Visit: Yes (3) Altered mental status Code(s): R41.82 - Altered mental status, unspecified Status: Acute Current Visit: Yes (4) Sepsis Code(s): A41.9 - Sepsis, unspecified organism Status: Acute Current Visit: Yes (5) Hypoglycemia Code(s): E16.2 - Hypoglycemia, unspecified Status: Acute Current Visit: Yes (6) Right carotid artery occlusion Code(s): I65.21 - Occlusion and stenosis of right carotid artery Status: Acute Current Visit: Yes - Review/Management Plan: Send clear for episode of speech impairment and weakness is more related to possible developing sepsis picture, hypoglycemia versus a TIA. Carotid ultrasound demonstrating a right carotid occlusion and left carotid 60% stenosis. She likely had a hypo-perfusion related TIA. She has a pacemaker she is not a candidate for an MRI. With her elevated creatinine CTAs would be difficult to achieve without compromising kidney function At high risk for intervention of the left carotid medical management Recommendations Neuro exam stable Medical management On Plavix PT eval (3) Altered mental status Qualifiers: Altered mental status type: unspecified Qualified Code(s): R41.82 - Altered mental status, unspecified (4) Sepsis Qualifiers: Sepsis type: sepsis due to unspecified organism Qualified Code(s): A41.9 - Sepsis, unspecified organism
--- NOTE | 2018-07-16 17:49 | P.PNCA ---
Subjective Interval history: No events overnight No vasopressors Physical Exam Vital signs: Vital Signs 07/15/18 18:00 07/15/18 18:01 07/15/18 20:00 Temperature 97.7 F Pulse Rate 89 88 88 Respiratory Rate 16 16 19 Blood Pressure 95/51 L 114/57 L Pulse Oximetry 99 99 99 07/15/18 20:06 07/16/18 00:00 07/16/18 04:00 Temperature 97.8 F 97.7 F Pulse Rate 83 88 Respiratory Rate 12 16 Blood Pressure 128/60 117/57 L Pulse Oximetry 99 99 98 07/16/18 07:00 07/16/18 07:14 07/16/18 07:44 Temperature Pulse Rate 93 H 96 H 86 Respiratory Rate 21 17 15 Blood Pressure 115/56 L 101/49 L 113/49 L Pulse Oximetry 100 100 99 07/16/18 08:00 07/16/18 08:14 07/16/18 08:44 Temperature Pulse Rate 88 87 100 H Respiratory Rate 16 16 25 H Blood Pressure 105/50 L 119/52 L Pulse Oximetry 100 100 100 07/16/18 09:00 07/16/18 09:14 07/16/18 09:44 Temperature Pulse Rate 102 H 100 H 90 Respiratory Rate 16 13 18 Blood Pressure 109/53 L 97/46 L Pulse Oximetry 100 100 98 07/16/18 10:00 07/16/18 10:14 07/16/18 10:20 Temperature Pulse Rate 88 79 Respiratory Rate 15 15 Blood Pressure 82/46 L Pulse Oximetry 99 98 98 07/16/18 10:21 07/16/18 11:00 07/16/18 11:14 Temperature Pulse Rate 79 88 80 Respiratory Rate 15 16 13 Blood Pressure 114/47 L 105/53 L Pulse Oximetry 97 97 96 07/16/18 11:44 07/16/18 12:00 07/16/18 12:14 Temperature Pulse Rate 79 93 H 90 Respiratory Rate 17 23 16 Blood Pressure 107/52 L 100/49 L Pulse Oximetry 99 99 98 07/16/18 12:44 07/16/18 13:00 07/16/18 13:14 Temperature Pulse Rate 92 H 89 89 Respiratory Rate 18 17 15 Blood Pressure 105/51 L 111/57 L Pulse Oximetry 100 100 100 07/16/18 17:38 Temperature Pulse Rate Respiratory Rate 23 Blood Pressure Pulse Oximetry Intake & Output 07/15/18 07/16/18 07/16/18 18:59 06:59 18:59 Intake Total 2019 / 2019 1300 / 1300 1060 / 1060 Output Total 650 / 650 Balance 1370 / 1370 1300 / 1300 1060 / 1060 Weight 78.7 kg Intake: IV 1420 / 1420 1050 / 1050 1060 / 1060 NS Inj 1,000 ML @ 100 mls/hr IV 1000 / 1000 1000 / 1000 850 / 850 .CONT .Q10H ALEKSANDR Rx#:[id number] Pitressin Inj 40 UNIT In NS Inj 100 / 100 60 / 60 98 ML @ 0.04 UNITS/MIN 6 mls/ hr IV.CONT CONT ALEKSANDR Rx#: [id number] Zosyn 3.375 GM Premix 50 ML @ 100 / 100 50 / 50 50 / 50 100 mls/hr IV.SIG Q8H ALEKSANDR Rx#: [id number] KCl 40 mEq Premix Inj 40 meq In 100 / 100 100 ml @ 25 mls/hr IV.SIG ONCE ONE Rx#:[id number] KCl Inj 20 MEQ In NS Inj 100 ML 220 / 220 @ 55 mls/hr IV.SIG Q2H ALEKSANDR Rx# :[id number] Oral 600 / 600 250 / 250 Output: Urine Amount (Catheter) 650 / 650 Indwelling Temp Sensing 650 / 650 Catheter Other: Date of Last Bowel Movement 07/15/18 07/14/18 07/16/18 # Bowel Movements 1 Narrative: General: Alert, conversant, looks well Head: Atraumatic, Neck: Supple, airway widely patent, no obstructive noises. Lungs: Clear bilaterally, comfortable respiratory pattern, Heart: Normal S Abdomen: Soft, nondistended, no guarding, Extremities: Warm, No edema. Neuro: Oriented 3, alert, cooperative, conversant. Speech clear. Articulate follows motor requests. Right lower extremity right foot dorsiflexion weakness which she states is chronic slightly on the left mild chronic ecchymotic looking limbs - Urinary Catheter Management Indwelling Temp Sensing Catheter Cath placed during this visit: yes Reason for continuing: Hourly intake/output Insertion date: 07/13/18 Insertion time: 07:35 Assessment and Plan - Assessment (1) H/O mitral valve repair Code(s): Z98.890 - Other specified postprocedural states Status: Acute (2) Altered mental status Code(s): R41.82 - Altered mental status, unspecified Status: Acute (3) Sepsis Code(s): A41.9 - Sepsis, unspecified organism Status: Acute (4) Hypoglycemia Code(s): E16.2 - Hypoglycemia, unspecified Status: Acute (5) Pacemaker Code(s): Z95.0 - Presence of cardiac pacemaker Status: Acute (6) Right carotid artery occlusion Code(s): I65.21 - Occlusion and stenosis of right carotid artery Status: Acute - Plan 1) Acute mental status change Possible due to hypoglycemia, sepsis with UTI, or TIA due to hypoperfusion with carotid disease 2) No history of AFib on previous interrogations in the office 3) Hx of mitral valve repair and CABG 4) Vasopressors weaned off 5) Repeat echo showing an EF of 50-55%, same as previous 6) Thrombocytopenia 7) Carotid disease Per neurology, plan to con't medical management 8) No further cardio workup at this time Will see PRN, call with questions (2) Altered mental status Qualifiers: Altered mental status type: unspecified Qualified Code(s): R41.82 - Altered mental status, unspecified (3) Sepsis Qualifiers: Sepsis type: sepsis due to unspecified organism Qualified Code(s): A41.9 - Sepsis, unspecified organism
[2018-07-17] MEDS: Dextrose 5%/NaCl 0.45% Inj 1,000 ML IV.CONT SCH ×2 (01:20→20:30)
[2018-07-17] MEDS: Piperacil/Tazo 3.375 GM Premix 50 ML IV.SIG SCH ×3 (01:20→17:02)
[2018-07-17 06:27] LABS: Baso % (Auto) 0.1 % (0.0-2.0); Eos # (Auto) 0.3 th/mm3 (0.0-0.4); Eos % (Auto) 2.3 % (0.0-4.0); Hemoglobin 7.7 gm/dL (11.6-15.3); Lymph # (Auto) 1.1 th/mm3 (1.0-4.8); Lymph % (Auto) 7.5 % (9.0-44.0); Mean Corpuscular HGB Conc 32.2 % (32.0-36.0); Mean Corpuscular Hemoglobin 28.6 pg (27.0-34.0); Mean Corpuscular Volume 88.7 fL (80.0-100.0); Mean Platelet Volume 8.7 fL (7.0-11.0); Neut # (Auto) 11.9 th/mm3 (1.8-7.7); Neut % (Auto) 83.1 % (16.0-70.0); Platelet Count 70 th/mm3 (150-450); Red Blood Count 2.71 mil/mm3 (4.00-5.30); White Blood Count 14.3 th/mm3 (4.0-11.0)
[2018-07-17 07:13] LABS: Albumin 1.2 g/dL (3.4-5.0); Calcium 7.1 mg/dL (8.5-10.1); Carbon Dioxide 17.4 meq/L (21.0-32.0); Potassium 4.1 meq/L (3.5-5.1); Total Protein 4.1 g/dL (6.4-8.2)
[2018-07-17] MEDS: Insulin NovoLOG Aspart Correctional Sugar Inj SQ SCH ×3 (08:00→17:04)
[2018-07-17 08:05] LABS: Platelet Morphology Normal (Normal)
--- NOTE | 2018-07-17 11:20 | P.PNNEU ---
Subjective Subjective Comments: Slept well pain under control denies any headache dyspnea chest pain Active Medications: Active Medications Hydrocodone Bitart/Acetaminophen (Harmony 5/325) 1 tab PO Q6H PRN PRN Reason: Pain 5-10 Last Admin: 07/17/18 00:35 Dose: 1 tab Al Hydroxide/Mg Hydroxide (Milk Of Magnesia Liq) 30 ml PO Q12H PRN PRN Reason: Mild Constipation Bisacodyl (Dulcolax Supp) 10 mg RECTAL DAILY PRN PRN Reason: SEVERE CONSITIPATION Clopidogrel Bisulfate (Plavix) 75 mg PO DAILY [facility] Last Admin: 07/16/18 09:24 Dose: 75 mg Dextrose (D50w Vial) 50 ml IV.PUSH UNSCH PRN PRN Reason: PER HYPOGLYCEMIA PROTOCOL Last Admin: 07/15/18 21:30 Dose: 50 ml Glucagon (Glucagon Inj) 1 mg OTHER PRN PRN PRN Reason: for Hypoglycemia Protocol Piperacillin/Tazobactam/Dextrose (Zosyn 3.375 Gm Premix) 50 mls @ 100 mls/hr IV.SIG Q8H [facility] Last Infusion: 07/17/18 01:50 Dose: Infused Norepinephrine Bitartrate 4 mg (/ Sodium Chloride) 250 mls @ 7.5 mls/hr IV.SIG TITRATE PRN; Protocol PRN Reason: Per Protocol Dextrose/Sodium Chloride (D5w/1/2 Ns Inj) 1,000 mls @ 100 mls/hr IV.CONT .Q10H [facility] Last Admin: 07/17/18 01:20 Dose: 100 mls/hr Insulin Aspart (Novolog Insulin Correctional Sugar Inj) 0 unit SQ TIDAC [facility]; Protocol Last Admin: 07/16/18 17:12 Dose: Not Given Lactobacillus Acidophilus (Lactinex) 1 tab PO TID [facility] Last Admin: 07/16/18 17:13 Dose: 1 tab Lactulose (Lactulose Liq) 30 ml PO DAILY PRN PRN Reason: SEVERE CONSITIPATION Pantoprazole Sodium (Protonix Inj) 40 mg IV.PUSH Q24H [facility] Last Admin: 07/16/18 09:25 Dose: 40 mg Potassium Chloride (Klor-Con 10) 10 meq PO BID [facility] Last Admin: 07/16/18 21:41 Dose: 10 meq Senna/Docusate Sodium (Bernadette-Colace) 1 tab PO BID [facility] Last Admin: 07/16/18 21:44 Dose: Not Given Sennosides (Senokot) 17.2 mg PO Q12H PRN PRN Reason: Moderate Constipation Sodium Chloride (Ns Flush) 2 ml IV.FLUSH PRN PRN PRN Reason: FLUSH AFTER USING IV ACCESS Last Admin: 07/16/18 09:25 Dose: 2 ml Allergies/Adverse Reactions: Allergies Allergy/AdvReac Type Severity Reaction Status Date / Time diatrizoate meglumine Allergy Severe Hives Verified 07/13/18 08:05 gadobenic acid Allergy Severe Hives Verified 07/13/18 08:05 gadodiamide Allergy Severe Hives Verified 07/13/18 08:05 gadoteridol Allergy Severe Hives Verified 07/13/18 08:05 iodixanol Allergy Severe Hives Verified 07/13/18 08:05 iohexol Allergy Severe Hives Verified 07/13/18 08:05 hydrocortisone Allergy Intermediate HIVES Verified 07/13/18 08:05 Review of Systems All other systems reviewed negative except as stated in HPI Physical Exam Vital signs: Vital Signs 07/16/18 11:44 07/16/18 12:00 07/16/18 12:14 Temperature Pulse Rate 79 93 H 90 Respiratory Rate 17 23 16 Blood Pressure 107/52 L 100/49 L Pulse Oximetry 99 99 98 07/16/18 12:44 07/16/18 13:00 07/16/18 13:14 Temperature Pulse Rate 92 H 89 89 Respiratory Rate 18 17 15 Blood Pressure 105/51 L 111/57 L Pulse Oximetry 100 100 100 07/16/18 16:00 07/16/18 17:38 07/16/18 20:00 Temperature 98.4 F 98.7 F Pulse Rate 97 H 107 H Respiratory Rate 23 23 18 Blood Pressure 105/58 L 107/53 L Pulse Oximetry 99 100 07/17/18 00:00 07/17/18 04:00 07/17/18 08:00 Temperature 98.5 F 97.5 F L 97.6 F Pulse Rate 94 H 101 H 107 H Respiratory Rate 18 18 20 Blood Pressure 129/58 L 104/51 L 96/60 L Pulse Oximetry 99 99 98 Intake & Output 07/16/18 07/17/18 07/17/18 18:59 06:59 18:59 Intake Total 2560 / 2560 1530 / 1530 Output Total 600 / 600 400 / 400 Balance 1959 / 1959 1130 / 1130 Intake: IV 1910 / 1910 1050 / 1050 NS Inj 1,000 ML @ 100 mls/hr IV 1650 / 1650 1000 / 1000 .CONT .Q10H ALEKSANDR Rx#:[id number] Pitressin Inj 40 UNIT In NS Inj 60 / 60 98 ML @ 0.04 UNITS/MIN 6 mls/ hr IV.CONT CONT ALEKSANDR Rx#: [id number] Zosyn 3.375 GM Premix 50 ML @ 100 / 100 50 / 50 100 mls/hr IV.SIG Q8H ALEKSANDR Rx#: [id number] KCl 40 mEq Premix Inj 40 meq In 100 / 100 100 ml @ 25 mls/hr IV.SIG ONCE ONE Rx#:[id number] Oral 650 / 650 480 / 480 Output: Urine 400 / 400 Urine Amount (Catheter) 600 / 600 Indwelling Temp Sensing 600 / 600 Catheter Other: Date of Last Bowel Movement 07/16/18 07/16/18 # Bowel Movements 1 Narrative: General: Alert, conversant, looks well Head: Atraumatic, Neck: Supple, airway widely patent, no obstructive noises. Lungs: Clear bilaterally, comfortable respiratory pattern, Heart: Normal S Abdomen: Soft, nondistended, no guarding, Extremities: Warm, No edema. Slight skin tear left forearm which is wrapped Neuro: Oriented 3, alert, cooperative, conversant. Speech clear. Articulate follows motor requests. Right lower extremity right foot dorsiflexion weakness which she states is chronic slightly on the left mild chronic ecchymotic looking limbs - Constitutional no acute distress - Routine HEENT Exam Head: Present: normocephalic Eye: Present: EOMI - Urinary Catheter Management Indwelling Temp Sensing Catheter Cath placed during this visit: yes Reason for continuing: Hourly intake/output Insertion date: 07/13/18 Insertion time: 07:35 Objective Laboratory Results - last 24 hr 07/16/18 07/16/18 07/16/18 12:40 17:05 21:33 WBC RBC Hgb Hct MCV MCH MCHC RDW Plt Count MPV Prelim Diff (Auto) Neut % (Auto) Lymph % (Auto) [place] % (Auto) Eos % (Auto) Baso % (Auto) Neut # (Auto) Lymph # (Auto) [place] # (Auto) Eos # (Auto) Baso # (Auto) WBC Differential Diff Scan Differential Comment Platelet Estimate Platelet Morphology Sodium Potassium Chloride Carbon Dioxide Anion Gap BUN Creatinine Estimated GFR POC Glucose 51 L 56 L 68 Random Glucose Calcium Prot Corrected Calcium Total Bilirubin AST ALT Alkaline Phosphatase Total Protein Albumin 07/16/18 07/16/18 07/17/18 22:14 23:05 06:00 WBC 14.3 H RBC 2.71 L Hgb 7.7 L Hct 24.0 L MCV 88.7 MCH 28.6 MCHC 32.2 RDW 17.0 Plt Count 70 L MPV 8.7 Prelim Diff (Auto) Slide review pending Neut % (Auto) 83.1 H Lymph % (Auto) 7.5 L [place] % (Auto) 7.0 Eos % (Auto) 2.3 Baso % (Auto) 0.1 Neut # (Auto) 11.9 H Lymph # (Auto) 1.1 [place] # (Auto) 1.0 H Eos # (Auto) 0.3 Baso # (Auto) 0.0 WBC Differential . Diff Scan Auto diff confirmed Differential Comment . Platelet Estimate Low L Platelet Morphology Normal Sodium Potassium Chloride Carbon Dioxide Anion Gap BUN Creatinine Estimated GFR POC Glucose 66 L 75 Random Glucose Calcium Prot Corrected Calcium Total Bilirubin AST ALT Alkaline Phosphatase Total Protein Albumin 07/17/18 07/17/18 06:00 09:14 WBC RBC Hgb Hct MCV MCH MCHC RDW Plt Count MPV Prelim Diff (Auto) Neut % (Auto) Lymph % (Auto) [place] % (Auto) Eos % (Auto) Baso % (Auto) Neut # (Auto) Lymph # (Auto) [place] # (Auto) Eos # (Auto) Baso # (Auto) WBC Differential Diff Scan Differential Comment Platelet Estimate Platelet Morphology Sodium 146 H Potassium 4.1 D Chloride 121 H Carbon Dioxide 17.4 L Anion Gap 8 BUN 28 H Creatinine 1.26 H Estimated GFR 40 L POC Glucose 82 Random Glucose 65 L Calcium 7.1 L* Prot Corrected Calcium 8.8 Total Bilirubin 0.5 AST 44 H ALT 28 Alkaline Phosphatase 124 H Total Protein 4.1 L Albumin 1.2 L Microbiology 07/13/18 07:45 Aerobic Blood Culture - Preliminary Blood - Peripheral No growth in 4 days Anaerobic Blood Culture - Preliminary No growth in 4 days 07/13/18 07:45 Aerobic Blood Culture - Preliminary Blood - Peripheral No growth in 4 days Anaerobic Blood Culture - Preliminary No growth in 4 days Review/Management - Diagnosis (1) Pacemaker Code(s): Z95.0 - Presence of cardiac pacemaker Status: Acute Current Visit: Yes (2) Diabetic peripheral neuropathy Code(s): E11.42 - Type 2 diabetes mellitus with diabetic polyneuropathy Status : Acute Current Visit: Yes (3) Altered mental status Code(s): R41.82 - Altered mental status, unspecified Status: Acute Current Visit: Yes (4) Sepsis Code(s): A41.9 - Sepsis, unspecified organism Status: Acute Current Visit: Yes (5) Hypoglycemia Code(s): E16.2 - Hypoglycemia, unspecified Status: Acute Current Visit: Yes (6) Right carotid artery occlusion Code(s): I65.21 - Occlusion and stenosis of right carotid artery Status: Acute Current Visit: Yes - Review/Management Plan: Send clear for episode of speech impairment and weakness is more related to possible developing sepsis picture, hypoglycemia versus a TIA. Carotid ultrasound demonstrating a right carotid occlusion and left carotid 60% stenosis. She likely had a hypo-perfusion related TIA. She has a pacemaker she is not a candidate for an MRI. With her elevated creatinine CTAs would be difficult to achieve without compromising kidney function At high risk for intervention of the left carotid medical management Recommendations Blood pressures running little low. This may be residuals from sepsis versus development of diabetic related dysautonomia Need to maintain systolic over 100 preferably especially the right carotid occlusion. May need to add Midodrine 2.5 mg p.o. twice daily Medical management On Plavix PT eval (3) Altered mental status Qualifiers: Altered mental status type: unspecified Qualified Code(s): R41.82 - Altered mental status, unspecified (4) Sepsis Qualifiers: Sepsis type: sepsis due to unspecified organism Qualified Code(s): A41.9 - Sepsis, unspecified organism
--- NOTE | 2018-07-17 12:07 | P.PNIM ---
Subjective Interval history: PATIENT SEEN BY NEUROLOGY STARTED ON MIDODRINE 2.5MG PO BID FOLLOW VITALS TREAT URI ON NO BLOOD PRESSURE MEDS WATCH BLOOD SUGARS HAS SOME OOZING FROM LEFT UPPER EXTREMITY Physical Exam Vital signs: Vital Signs 07/16/18 12:14 07/16/18 12:44 07/16/18 13:00 Temperature Pulse Rate 90 92 H 89 Respiratory Rate 16 18 17 Blood Pressure 100/49 L 105/51 L Pulse Oximetry 98 100 100 07/16/18 13:14 07/16/18 16:00 07/16/18 17:38 Temperature 98.4 F Pulse Rate 89 97 H Respiratory Rate 15 23 23 Blood Pressure 111/57 L 105/58 L Pulse Oximetry 100 99 07/16/18 20:00 07/17/18 00:00 07/17/18 04:00 Temperature 98.7 F 98.5 F 97.5 F L Pulse Rate 107 H 94 H 101 H Respiratory Rate 18 18 18 Blood Pressure 107/53 L 129/58 L 104/51 L Pulse Oximetry 100 99 99 07/17/18 08:00 Temperature 97.6 F Pulse Rate 107 H Respiratory Rate 20 Blood Pressure 96/60 L Pulse Oximetry 98 Intake & Output 07/16/18 07/17/18 07/17/18 18:59 06:59 18:59 Intake Total 2560 / 2560 1530 / 1530 Output Total 600 / 600 400 / 400 Balance 1959 / 1959 1130 / 1130 Intake: IV 1910 / 1910 1050 / 1050 NS Inj 1,000 ML @ 100 mls/hr IV 1650 / 1650 1000 / 1000 .CONT .Q10H ALEKSANDR Rx#:[id number] Pitressin Inj 40 UNIT In NS Inj 60 / 60 98 ML @ 0.04 UNITS/MIN 6 mls/ hr IV.CONT CONT ALEKSANDR Rx#: [id number] Zosyn 3.375 GM Premix 50 ML @ 100 / 100 50 / 50 100 mls/hr IV.SIG Q8H ALEKSANDR Rx#: [id number] KCl 40 mEq Premix Inj 40 meq In 100 / 100 100 ml @ 25 mls/hr IV.SIG ONCE ONE Rx#:[id number] Oral 650 / 650 480 / 480 Output: Urine 400 / 400 Urine Amount (Catheter) 600 / 600 Indwelling Temp Sensing 600 / 600 Catheter Other: Date of Last Bowel Movement 07/16/18 07/16/18 # Bowel Movements 1 Narrative: General: Alert, conversant, looks well Head: Atraumatic, tongue is midline Neck: Supple, airway widely patent, no obstructive noises. Lungs: Clear bilaterally, comfortable respiratory pattern, Heart: Regular rate and rhythm there is an S1-S2 no S3 or S4 Abdomen: Soft, nondistended, no guarding, Extremities: Warm, No edema. Slight skin tear left forearm which is wrapped Neuro: Oriented 3, alert, cooperative, conversant. Speech clear. Articulate follows motor requests. Right lower extremity right foot dorsiflexion weakness which she states is chronic slightly on the left mild chronic ecchymotic looking limbs Left upper extremity is oozing - Urinary Catheter Management Indwelling Temp Sensing Catheter Cath placed during this visit: yes Reason for continuing: Hourly intake/output Insertion date: 07/13/18 Insertion time: 07:35 Results - Labs CBC & Chem 7: 07/17/18 06:00 07/17/18 06:00 Laboratory Results - last 24 hr 07/16/18 07/16/18 07/16/18 12:40 17:05 21:33 WBC RBC Hgb Hct MCV MCH MCHC RDW Plt Count MPV Prelim Diff (Auto) Neut % (Auto) Lymph % (Auto) [place] % (Auto) Eos % (Auto) Baso % (Auto) Neut # (Auto) Lymph # (Auto) [place] # (Auto) Eos # (Auto) Baso # (Auto) WBC Differential Diff Scan Differential Comment Platelet Estimate Platelet Morphology Sodium Potassium Chloride Carbon Dioxide Anion Gap BUN Creatinine Estimated GFR POC Glucose 51 L 56 L 68 Random Glucose Calcium Prot Corrected Calcium Total Bilirubin AST ALT Alkaline Phosphatase Total Protein Albumin 07/16/18 07/16/18 07/17/18 22:14 23:05 06:00 WBC 14.3 H RBC 2.71 L Hgb 7.7 L Hct 24.0 L MCV 88.7 MCH 28.6 MCHC 32.2 RDW 17.0 Plt Count 70 L MPV 8.7 Prelim Diff (Auto) Slide review pending Neut % (Auto) 83.1 H Lymph % (Auto) 7.5 L [place] % (Auto) 7.0 Eos % (Auto) 2.3 Baso % (Auto) 0.1 Neut # (Auto) 11.9 H Lymph # (Auto) 1.1 [place] # (Auto) 1.0 H Eos # (Auto) 0.3 Baso # (Auto) 0.0 WBC Differential . Diff Scan Auto diff confirmed Differential Comment . Platelet Estimate Low L Platelet Morphology Normal Sodium Potassium Chloride Carbon Dioxide Anion Gap BUN Creatinine Estimated GFR POC Glucose 66 L 75 Random Glucose Calcium Prot Corrected Calcium Total Bilirubin AST ALT Alkaline Phosphatase Total Protein Albumin 07/17/18 07/17/18 06:00 09:14 WBC RBC Hgb Hct MCV MCH MCHC RDW Plt Count MPV Prelim Diff (Auto) Neut % (Auto) Lymph % (Auto) [place] % (Auto) Eos % (Auto) Baso % (Auto) Neut # (Auto) Lymph # (Auto) [place] # (Auto) Eos # (Auto) Baso # (Auto) WBC Differential Diff Scan Differential Comment Platelet Estimate Platelet Morphology Sodium 146 H Potassium 4.1 D Chloride 121 H Carbon Dioxide 17.4 L Anion Gap 8 BUN 28 H Creatinine 1.26 H Estimated GFR 40 L POC Glucose 82 Random Glucose 65 L Calcium 7.1 L* Prot Corrected Calcium 8.8 Total Bilirubin 0.5 AST 44 H ALT 28 Alkaline Phosphatase 124 H Total Protein 4.1 L Albumin 1.2 L Microbiology 07/13/18 07:45 Blood - Peripheral Aerobic Blood Culture - Preliminary No growth in 4 days 07/13/18 07:45 Blood - Peripheral Anaerobic Blood Culture - Preliminary No growth in 4 days 07/13/18 07:45 Blood - Peripheral Aerobic Blood Culture - Preliminary No growth in 4 days 07/13/18 07:45 Blood - Peripheral Anaerobic Blood Culture - Preliminary No growth in 4 days - Imaging Chest X-Ray 07/13/18 06:44 CONCLUSION: Clear lungs. Head CT 07/13/18 06:44 CONCLUSION: 1. Patchy white matter disease likely related to chronic microvascular ischemic disease. 2. No hemorrhage. 3. Report called by Dr. Méndez to Dr. Cox at 7:09 AM on July 13, 2018. Carotid Doppler Study 07/13/18 09:21 CONCLUSION: 1. 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 2. Left Internal Carotid Artery: Focal moderate to severe stenosis of the distal common carotid arteries secondary to noncalcified plaque. Moderate, 50-69 %, stenosis of the internal carotid artery. Consider CTA examination for better evaluation. Patient may be a candidate for carotid intervention given the tandem lesions and contralateral occlusion. Abdomen/Bladder Ultrasound 07/13/18 11:42 CONCLUSION: 1. No acute findings. Small bilateral renal cysts. No hydronephrosis. Bladder decompressed by Martel. Chest X-Ray 07/13/18 12:17 CONCLUSION: Right-sided port placement with tip in right atrium. No pneumothorax. Assessment and Plan - Assessment (1) Hyperglycemia Code(s): R73.9 - Hyperglycemia, unspecified Status: Acute (2) Altered mental status Code(s): R41.82 - Altered mental status, unspecified Status: Acute (3) Sepsis Code(s): A41.9 - Sepsis, unspecified organism Status: Acute - Plan 87-year-old female admitted with UTI and septic shock and altered mental status. Patient stable for transfer out of ICU. Continue to monitor for stability. long-term facility is likely needed at discharge. septic shock Resolved Levophed has been discontinued Midrin 2.5 mg has been added twice daily healthcare associated urinary tract infection Continue Zosyn Follow urine cultures Probiotic acute hypoglycemia Diabetes mellitus type 2 Hypoglycemia improving Long-acting insulins discontinued Follow blood sugars closely Low-dose sliding scale is present if any recurrence of hyperglycemia occurs Diabetic diet resumed, encourage p.o. intake acute metabolic encephalopathy Likely related to septic state and UTI improving Continue treating infection as above Avoid sedatives history of CHF Suspected diastolic type CHF Caution with fluids Monitor clinically for any evidence of fluid overload Ejection fraction on echocardiogram is 50-55%. 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 left Chronic in nature Follow clinically CVA is less likely etiology for her previous mental status changes History of carotid occlusion and stenosis Global weakness Continue physical therapy Start occupational therapy DVT prophylaxis SCDs Discharge planning Anticipated half-way facility at discharge Code Status: Full code Discussed Condition With: RN and patient and case management and neurology (2) Altered mental status Qualifiers: Altered mental status type: unspecified Qualified Code(s): R41.82 - Altered mental status, unspecified (3) Sepsis Qualifiers: Sepsis type: sepsis due to unspecified organism Qualified Code(s): A41.9 - Sepsis, unspecified organism
[2018-07-17] MEDS: Lactobacillus Acidophilus/L. Spores Tablet PO SCH ×3 (12:37→17:02)
[2018-07-17] MEDS: Pantoprazole Inj 40 MG Vial IV.PUSH SCH (12:38)
[2018-07-17] MEDS: Senna/Docusate Sodium 8.6/50 MG Tablet PO SCH ×3 (12:38→21:00)
[2018-07-18] MEDS: Piperacil/Tazo 3.375 GM Premix 50 ML IV.SIG SCH ×2 (02:13→10:27)
[2018-07-18] MEDS: Dextrose 5%/NaCl 0.45% Inj 1,000 ML IV.CONT SCH ×2 (05:23→06:06)
[2018-07-18 06:49] LABS: Baso % (Auto) 0.1 % (0.0-2.0); Eos # (Auto) 0.5 th/mm3 (0.0-0.4); Eos % (Auto) 4.1 % (0.0-4.0); Hematocrit 23.7 % (35.0-46.0); Hemoglobin 7.7 gm/dL (11.6-15.3); Lymph # (Auto) 1.3 th/mm3 (1.0-4.8); Lymph % (Auto) 10.1 % (9.0-44.0); Mean Corpuscular HGB Conc 32.5 % (32.0-36.0); Mean Corpuscular Hemoglobin 28.7 pg (27.0-34.0); Mean Corpuscular Volume 88.3 fL (80.0-100.0); Mean Platelet Volume 8.6 fL (7.0-11.0); Mono # (Auto) 0.9 th/mm3 (0.0-0.9); Mono % (Auto) 7.1 % (0.0-8.0); Neut # (Auto) 10.4 th/mm3 (1.8-7.7); Neut % (Auto) 78.6 % (16.0-70.0); Platelet Count 94 th/mm3 (150-450); Red Blood Count 2.68 mil/mm3 (4.00-5.30); Red Cell Distribution Width 16.6 % (11.6-17.2); White Blood Count 13.2 th/mm3 (4.0-11.0)
[2018-07-18 07:47] LABS: Albumin 1.2 g/dL (3.4-5.0); Calcium 7.3 mg/dL (8.5-10.1); Carbon Dioxide 19.5 meq/L (21.0-32.0); Free T4 (Free Thyroxine) 0.67 ng/dL (0.76-1.46); Magnesium 1.9 mg/dL (1.5-2.5); Phosphorus 1.9 mg/dL (2.5-4.9); Potassium 4.1 meq/L (3.5-5.1); Thyroid Stimulating Hormone 3.47 uIU/mL (0.358-3.740); Total Protein 4.1 g/dL (6.4-8.2)
[2018-07-18 08:51] LABS: Platelet Morphology Normal (Normal)
[2018-07-18] MEDS: Pantoprazole Inj 40 MG Vial IV.PUSH SCH (10:29)
[2018-07-18] MEDS: Lactobacillus Acidophilus/L. Spores Tablet PO SCH ×3 (10:30→19:05)
[2018-07-18] MEDS: Senna/Docusate Sodium 8.6/50 MG Tablet PO SCH ×2 (10:30→21:03)
[2018-07-18] MEDS: Dextrose 5% in Water Inj 1,000 ML IV.CONT SCH (10:32)
[2018-07-18] MEDS: Insulin NovoLOG Aspart Correctional Sugar Inj SQ SCH ×4 (10:35→21:03)
[2018-07-18 11:08] LABS: Hemoglobin A1c 7.4 % (4.3-6.0)
--- NOTE | 2018-07-18 11:56 | P.PNNEU ---
Subjective Subjective Comments: Denies any headache chest pain dyspnea Active Medications: Active Medications Hydrocodone Bitart/Acetaminophen ([place] 5/325) 1 tab PO Q6H PRN PRN Reason: Pain 5-10 Last Admin: 07/18/18 11:38 Dose: 1 tab Al Hydroxide/Mg Hydroxide (Milk Of Magnesia Liq) 30 ml PO Q12H PRN PRN Reason: Mild Constipation Bisacodyl (Dulcolax Supp) 10 mg RECTAL DAILY PRN PRN Reason: SEVERE CONSITIPATION Clopidogrel Bisulfate (Plavix) 75 mg PO DAILY [facility] Last Admin: 07/18/18 10:30 Dose: 75 mg Dextrose (D50w Vial) 50 ml IV.PUSH UNSCH PRN PRN Reason: PER HYPOGLYCEMIA PROTOCOL Last Admin: 07/15/18 21:30 Dose: 50 ml Glucagon (Glucagon Inj) 1 mg OTHER PRN PRN PRN Reason: for Hypoglycemia Protocol Piperacillin/Tazobactam/Dextrose (Zosyn 3.375 Gm Premix) 50 mls @ 100 mls/hr IV.SIG Q8H [facility] Last Infusion: 07/18/18 10:55 Dose: Infused Norepinephrine Bitartrate 4 mg (/ Sodium Chloride) 250 mls @ 7.5 mls/hr IV.SIG TITRATE PRN; Protocol PRN Reason: Per Protocol Dextrose (D5w Inj) 1,000 mls @ 84 mls/hr IV.CONT .[id number] [facility] Last Admin: 07/18/18 10:32 Dose: 84 mls/hr Insulin Aspart (Novolog Insulin Correctional Sugar Inj) 0 unit SQ TIDAC [facility]; Protocol Last Admin: 07/18/18 10:35 Dose: Not Given Lactobacillus Acidophilus (Lactinex) 1 tab PO TID [facility] Last Admin: 07/18/18 10:30 Dose: 1 tab Lactulose (Lactulose Liq) 30 ml PO DAILY PRN PRN Reason: SEVERE CONSITIPATION Midodrine (Proamatine) 2.5 mg PO BID@0700,1300 [facility] Last Admin: 07/18/18 06:06 Dose: 2.5 mg Miscellaneous (Pill Splitter) 1 each OTHER UNSCH [facility] Pantoprazole Sodium (Protonix Inj) 40 mg IV.PUSH Q24H [facility] Last Admin: 07/18/18 10:29 Dose: 40 mg Potassium Chloride (Klor-Con 10) 10 meq PO BID [facility] Last Admin: 07/18/18 10:30 Dose: 10 meq Senna/Docusate Sodium (Bernadette-Colace) 1 tab PO BID [facility] Last Admin: 07/18/18 10:30 Dose: 1 tab Sennosides (Senokot) 17.2 mg PO Q12H PRN PRN Reason: Moderate Constipation Sodium Chloride (Ns Flush) 2 ml IV.FLUSH PRN PRN PRN Reason: FLUSH AFTER USING IV ACCESS Last Admin: 07/16/18 09:25 Dose: 2 ml Allergies/Adverse Reactions: Allergies Allergy/AdvReac Type Severity Reaction Status Date / Time diatrizoate meglumine Allergy Severe Hives Verified 07/13/18 08:05 gadobenic acid Allergy Severe Hives Verified 07/13/18 08:05 gadodiamide Allergy Severe Hives Verified 07/13/18 08:05 gadoteridol Allergy Severe Hives Verified 07/13/18 08:05 iodixanol Allergy Severe Hives Verified 07/13/18 08:05 iohexol Allergy Severe Hives Verified 07/13/18 08:05 hydrocortisone Allergy Intermediate HIVES Verified 07/13/18 08:05 Review of Systems All other systems reviewed negative except as stated in HPI Physical Exam Vital signs: Vital Signs 07/17/18 12:00 07/17/18 16:00 07/18/18 00:00 Temperature 98.1 F 98.0 F Pulse Rate 108 H 108 H 106 H Respiratory Rate 20 20 Blood Pressure 99/48 L 133/80 Pulse Oximetry 100 99 07/18/18 00:50 07/18/18 03:20 Temperature 98.8 F 98.7 F Pulse Rate 80 75 Respiratory Rate 18 20 Blood Pressure 118/88 120/74 Pulse Oximetry 98 96 Intake & Output 07/17/18 07/18/18 07/18/18 18:59 06:59 18:59 Intake Total 820 / 820 2200 / 2200 50 / 50 Output Total 650 / 650 500 / 500 Balance 170 / 170 1700 / 1700 50 / 50 Weight 79 kg Intake: IV 100 / 100 2050 / 2050 50 / 50 D5W/1/2 NS Inj 1,000 ML @ 100 2000 / 2000 mls/hr IV.CONT .Q10H [facility] Rx#: [id number] Zosyn 3.375 GM Premix 50 ML @ 100 / 100 50 / 50 50 / 50 100 mls/hr IV.SIG Q8H [facility] Rx#: [id number] Oral 720 / 720 150 / 150 Output: Urine 650 / 650 500 / 500 Other: Date of Last Bowel Movement 07/16/18 07/17/18 # Bowel Movements 1 0 Narrative: General: Alert, conversant, looks well Head: Atraumatic, tongue is midline Neck: Supple, airway widely patent, no obstructive noises. Lungs: Clear bilaterally, comfortable respiratory pattern, Heart: Regular rate and rhythm Abdomen: Soft, nondistended, no guarding, Extremities: Warm, No edema. Slight skin tear left forearm which is wrapped Neuro: Oriented 3, alert, cooperative, conversant. Speech clear. Articulate follows motor requests. Right lower extremity right foot dorsiflexion weakness which she states is chronic slightly on the left mild chronic ecchymotic looking limbs Psych: Pleasant, appropriate - Constitutional no acute distress - Routine HEENT Exam Head: Present: normocephalic Eye: Present: EOMI - Urinary Catheter Management Indwelling Temp Sensing Catheter Cath placed during this visit: yes Reason for continuing: Hourly intake/output Insertion date: 07/13/18 Insertion time: 07:35 Objective Laboratory Results - last 24 hr 07/17/18 07/17/18 07/17/18 13:09 17:00 22:01 WBC RBC Hgb Hct MCV MCH MCHC RDW Plt Count MPV Prelim Diff (Auto) Neut % (Auto) Lymph % (Auto) [place] % (Auto) Eos % (Auto) Baso % (Auto) Neut # (Auto) Lymph # (Auto) [place] # (Auto) Eos # (Auto) Baso # (Auto) WBC Differential Diff Scan Differential Comment Platelet Estimate Platelet Morphology Sodium Potassium Chloride Carbon Dioxide Anion Gap BUN Creatinine Estimated GFR POC Glucose 116 H 116 H 201 H Random Glucose Hemoglobin A1c Calcium Prot Corrected Calcium Phosphorus Magnesium Total Bilirubin AST ALT Alkaline Phosphatase Total Protein Albumin TSH Free T4 07/18/18 07/18/18 07/18/18 05:55 06:10 06:10 WBC 13.2 H RBC 2.68 L Hgb 7.7 L Hct 23.7 L MCV 88.3 MCH 28.7 MCHC 32.5 RDW 16.6 Plt Count 94 L D MPV 8.6 Prelim Diff (Auto) Slide review pending Neut % (Auto) 78.6 H Lymph % (Auto) 10.1 [place] % (Auto) 7.1 Eos % (Auto) 4.1 H Baso % (Auto) 0.1 Neut # (Auto) 10.4 H Lymph # (Auto) 1.3 [place] # (Auto) 0.9 Eos # (Auto) 0.5 H Baso # (Auto) 0.0 WBC Differential . Diff Scan Auto diff confirmed Differential Comment . Platelet Estimate Low L Platelet Morphology Normal Sodium 146 H Potassium 4.1 Chloride 117 H Carbon Dioxide 19.5 L Anion Gap 10 BUN 21 H Creatinine 1.15 H Estimated GFR 45 L POC Glucose 82 Random Glucose 64 L Hemoglobin A1c Calcium 7.3 L* Prot Corrected Calcium 9.1 Phosphorus 1.9 L Magnesium 1.9 Total Bilirubin 0.6 AST 35 ALT 27 Alkaline Phosphatase 140 H Total Protein 4.1 L Albumin 1.2 L TSH 3.470 Free T4 0.67 L 07/18/18 07/18/18 06:10 07:32 WBC RBC Hgb Hct MCV MCH MCHC RDW Plt Count MPV Prelim Diff (Auto) Neut % (Auto) Lymph % (Auto) [place] % (Auto) Eos % (Auto) Baso % (Auto) Neut # (Auto) Lymph # (Auto) [place] # (Auto) Eos # (Auto) Baso # (Auto) WBC Differential Diff Scan Differential Comment Platelet Estimate Platelet Morphology Sodium Potassium Chloride Carbon Dioxide Anion Gap BUN Creatinine Estimated GFR POC Glucose 83 Random Glucose Hemoglobin A1c 7.4 H Calcium Prot Corrected Calcium Phosphorus Magnesium Total Bilirubin AST ALT Alkaline Phosphatase Total Protein Albumin TSH Free T4 Microbiology 07/13/18 07:45 Aerobic Blood Culture - Final Blood - Peripheral No growth in 5 days Anaerobic Blood Culture - Final No growth in 5 days 07/13/18 07:45 Aerobic Blood Culture - Final Blood - Peripheral No growth in 5 days Anaerobic Blood Culture - Final No growth in 5 days Review/Management - Diagnosis (1) Pacemaker Code(s): Z95.0 - Presence of cardiac pacemaker Status: Acute Current Visit: Yes (2) Diabetic peripheral neuropathy Code(s): E11.42 - Type 2 diabetes mellitus with diabetic polyneuropathy Status : Acute Current Visit: Yes (3) Altered mental status Code(s): R41.82 - Altered mental status, unspecified Status: Acute Current Visit: Yes (4) Sepsis Code(s): A41.9 - Sepsis, unspecified organism Status: Acute Current Visit: Yes (5) Hypoglycemia Code(s): E16.2 - Hypoglycemia, unspecified Status: Acute Current Visit: Yes (6) Right carotid artery occlusion Code(s): I65.21 - Occlusion and stenosis of right carotid artery Status: Acute Current Visit: Yes - Review/Management Plan: Send clear for episode of speech impairment and weakness is more related to possible developing sepsis picture, hypoglycemia versus a TIA. Carotid ultrasound demonstrating a right carotid occlusion and left carotid 60% stenosis. She likely had a hypo-perfusion related TIA. She has a pacemaker she is not a candidate for an MRI. With her elevated creatinine CTAs would be difficult to achieve without compromising kidney function At high risk for intervention of the left carotid medical management Recommendations Blood pressure improved. On Midodrine: Added yesterday Hydration Wound care evaluation PT Discharge planning Discussed with RN (3) Altered mental status Qualifiers: Altered mental status type: unspecified Qualified Code(s): R41.82 - Altered mental status, unspecified (4) Sepsis Qualifiers: Sepsis type: sepsis due to unspecified organism Qualified Code(s): A41.9 - Sepsis, unspecified organism
--- NOTE | 2018-07-18 15:46 | P.PNIM ---
Subjective Interval history: Pt seen and examined for f/u metabolic encephalopathy secondary to UTI with sepsis. AFVSS. Daughter present at bedside. Pt has no complaints except feeling weak. Denies CP or SOB. Looking forward to going home. Refusing SNF or rehab. Daughter states she lives with her and she works during the week. A caregiver comes to the house a few hours a day. The patient mobilizes with an electric wheelchair. Physical Exam Vital signs: Vital Signs 07/17/18 16:00 07/18/18 00:00 07/18/18 00:50 Temperature 98.0 F 98.8 F Pulse Rate 108 H 106 H 80 Respiratory Rate 20 18 Blood Pressure 133/80 118/88 Pulse Oximetry 99 98 07/18/18 03:20 Temperature 98.7 F Pulse Rate 75 Respiratory Rate 20 Blood Pressure 120/74 Pulse Oximetry 96 Intake & Output 07/17/18 07/18/18 07/18/18 18:59 06:59 18:59 Intake Total 820 / 820 2200 / 2200 50 / 50 Output Total 650 / 650 500 / 500 Balance 170 / 170 1700 / 1700 50 / 50 Weight 79 kg Intake: IV 100 / 100 2050 / 2050 50 / 50 D5W/1/2 NS Inj 1,000 ML @ 100 2000 / 2000 mls/hr IV.CONT .Q10H [facility] Rx#: [id number] Zosyn 3.375 GM Premix 50 ML @ 100 / 100 50 / 50 50 / 50 100 mls/hr IV.SIG Q8H [facility] Rx#: [id number] Oral 720 / 720 150 / 150 Output: Urine 650 / 650 500 / 500 Other: Date of Last Bowel Movement 07/16/18 07/17/18 # Bowel Movements 1 0 Narrative: GENERAL: Obese elderly female resting in bed in NAD. SKIN: Warm and dry. HEART: RRR with 1/6 JOSÉ MIGUEL. LUNGS: CTAB without wheezes or crackles. ABDOMEN: +BS, soft, NT, ND. EXTREMITIES: UE edema bilaterally with some skin tears and weeping. NEURO: Awake and alert. PSYCH: Flat affect. - Urinary Catheter Management Indwelling Temp Sensing Catheter Cath placed during this visit: yes Reason for continuing: Hourly intake/output Insertion date: 07/13/18 Insertion time: 07:35 Results - Labs CBC & Chem 7: 07/18/18 06:10 08/26/18 06:10 Laboratory Results - last 24 hr 07/17/18 07/17/18 07/18/18 17:00 22:01 05:55 WBC RBC Hgb Hct MCV MCH MCHC RDW Plt Count MPV Prelim Diff (Auto) Neut % (Auto) Lymph % (Auto) [place] % (Auto) Eos % (Auto) Baso % (Auto) Neut # (Auto) Lymph # (Auto) [place] # (Auto) Eos # (Auto) Baso # (Auto) WBC Differential Diff Scan Differential Comment Platelet Estimate Platelet Morphology Sodium Potassium Chloride Carbon Dioxide Anion Gap BUN Creatinine Estimated GFR POC Glucose 116 H 201 H 82 Random Glucose Hemoglobin A1c Calcium Prot Corrected Calcium Phosphorus Magnesium Total Bilirubin AST ALT Alkaline Phosphatase Total Protein Albumin TSH Free T4 07/18/18 07/18/18 07/18/18 06:10 06:10 06:10 WBC 13.2 H RBC 2.68 L Hgb 7.7 L Hct 23.7 L MCV 88.3 MCH 28.7 MCHC 32.5 RDW 16.6 Plt Count 94 L D MPV 8.6 Prelim Diff (Auto) Slide review pending Neut % (Auto) 78.6 H Lymph % (Auto) 10.1 [place] % (Auto) 7.1 Eos % (Auto) 4.1 H Baso % (Auto) 0.1 Neut # (Auto) 10.4 H Lymph # (Auto) 1.3 [place] # (Auto) 0.9 Eos # (Auto) 0.5 H Baso # (Auto) 0.0 WBC Differential . Diff Scan Auto diff confirmed Differential Comment . Platelet Estimate Low L Platelet Morphology Normal Sodium 146 H Potassium 4.1 Chloride 117 H Carbon Dioxide 19.5 L Anion Gap 10 BUN 21 H Creatinine 1.15 H Estimated GFR 45 L POC Glucose Random Glucose 64 L Hemoglobin A1c 7.4 H Calcium 7.3 L* Prot Corrected Calcium 9.1 Phosphorus 1.9 L Magnesium 1.9 Total Bilirubin 0.6 AST 35 ALT 27 Alkaline Phosphatase 140 H Total Protein 4.1 L Albumin 1.2 L TSH 3.470 Free T4 0.67 L 07/18/18 07/18/18 07:32 13:06 WBC RBC Hgb Hct MCV MCH MCHC RDW Plt Count MPV Prelim Diff (Auto) Neut % (Auto) Lymph % (Auto) [place] % (Auto) Eos % (Auto) Baso % (Auto) Neut # (Auto) Lymph # (Auto) [place] # (Auto) Eos # (Auto) Baso # (Auto) WBC Differential Diff Scan Differential Comment Platelet Estimate Platelet Morphology Sodium Potassium Chloride Carbon Dioxide Anion Gap BUN Creatinine Estimated GFR POC Glucose 83 162 H Random Glucose Hemoglobin A1c Calcium Prot Corrected Calcium Phosphorus Magnesium Total Bilirubin AST ALT Alkaline Phosphatase Total Protein Albumin TSH Free T4 Microbiology 07/13/18 07:45 Blood - Peripheral Aerobic Blood Culture - Final No growth in 5 days 07/13/18 07:45 Blood - Peripheral Anaerobic Blood Culture - Final No growth in 5 days 07/13/18 07:45 Blood - Peripheral Aerobic Blood Culture - Final No growth in 5 days 07/13/18 07:45 Blood - Peripheral Anaerobic Blood Culture - Final No growth in 5 days Assessment and Plan - Assessment (1) Hyperglycemia Code(s): R73.9 - Hyperglycemia, unspecified Status: Acute (2) Altered mental status Code(s): R41.82 - Altered mental status, unspecified Status: Acute (3) Sepsis Code(s): A41.9 - Sepsis, unspecified organism Status: Acute - Plan 87 year old female with history of prior bioprosthetic mitral valve replacement and prior CHF s/p AICD placement admitted 07/13 initially to critical care service for altered mental status. She was found to be hypoglycemia and septic with hypotension tachycardia, and leukocytosis. CT brain was negative and U/A demonstrated UTI. She was started on broad-spectrum antibiotics, IV fluids, and norepinephrine for pressor support. 1. Sepsis secondary to UTI - Acute septic component resolved - Off pressure support - Lactic acid was never elevated - Urine culture growing Klebsiella - Patient has been treated with IV Zosyn - Change to PO Cipro since sensitive 2. Hypotension - Off pressors but Midodrine added to keep systolic blood pressure above 100 for cerebral perfusion - Continue Midodrine 3. Metabolic encephalopathy - Secondary to infection and possible hypoperfusion related TIA - CT head negative - Pacemaker precludes MRI - Carotid u/s showing RCA occlusion and left carotid stenosis 60%. Continue Plavix - EEG with mild encephalopathy, no signs of seizure activity - Neurology following 4. CHF - 2D echo with EF 50-55% - Euvolemic on exam 5. UE edema and skin tears - Wound care consulted - Check doppler U/S to r/o DVT DVT prophylaxis: SCDs Discussed Condition With: Patient and daughter Discharge Planning: Anticipate D/C in next 1-2 days if patient remains clinically stable (2) Altered mental status Qualifiers: Altered mental status type: unspecified Qualified Code(s): R41.82 - Altered mental status, unspecified (3) Sepsis Qualifiers: Sepsis type: sepsis due to unspecified organism Qualified Code(s): A41.9 - Sepsis, unspecified organism
[2018-07-18] MEDS ORDERED: Piperacil/Tazo 2.25 GM Premix 50 ML IV.SIG SCH (16:00)
[2018-07-18] MEDS ORDERED: Piperacil/Tazo 3.375 GM Premix 50 ML IV.SIG SCH (16:00)
--- NOTE | 2018-07-18 20:00 | US ---
EXAM DATE: 07/18/2018 6:52 PM EDT AGE/SEX: 87 years / Female INDICATIONS: Bilateral arm swelling. CLINICAL DATA: This is the patient's initial encounter. Patient reports that signs and symptoms have been present for 1 week and indicates a pain score of 6/10. MEDICAL/SURGICAL HISTORY: . Diabetes. Pacemaker defibrillator. Plavix therapy. Diabetic periphe ral neuropathy. . Pacemaker placement. Cataract extraction. . Pacemaker placement. Cataract extracti on. COMPARISON: No prior exams available for comparison. FINDINGS: Right Upper Extremity: There is no evidence of deep venous thrombosis. Flow is documented in the jug ular, subclavian, axillary, brachial and basilic veins. Flow could not be identified in the cephalic vein. Left Upper Extremity: There is no evidence of deep venous thrombosis. Flow is documented in the jugu lar, subclavian, axillary and brachial veins. Occlusive thrombus is identified in the basilic vein. T here is no flow identified in the cephalic vein. Other: None. CONCLUSION: 1. No evidence of DVT. 2. Superficial thrombosis identified in the left basilic vein. 3. Flow could not be identified in either cephalic vein. Electronically signed by: Raphael Self MD 07/18/2018 7:58 PM EDT
[2018-07-18] MEDS: Ciprofloxacin 500 MG Tablet PO SCH (21:03)
[2018-07-19] MEDS: Dextrose 5% in Water Inj 1,000 ML IV.CONT SCH (01:00)
[2018-07-19 07:05] LABS: Hematocrit 24.2 % (35.0-46.0); Hemoglobin 7.9 gm/dL (11.6-15.3); Mean Corpuscular HGB Conc 32.5 % (32.0-36.0); Mean Corpuscular Hemoglobin 29.2 pg (27.0-34.0); Mean Corpuscular Volume 89.9 fL (80.0-100.0); Mean Platelet Volume 8.8 fL (7.0-11.0); Platelet Count 53 th/mm3 (150-450); Red Blood Count 2.69 mil/mm3 (4.00-5.30); Red Cell Distribution Width 16.9 % (11.6-17.2); White Blood Count 11.9 th/mm3 (4.0-11.0)
[2018-07-19 07:34] LABS: Calcium 7.2 mg/dL (8.5-10.1); Carbon Dioxide 18.2 meq/L (21.0-32.0)
[2018-07-19 07:45] LABS: Total Protein 4.4 g/dL (6.4-8.2)
[2018-07-19] MEDS: Insulin NovoLOG Aspart Correctional Sugar Inj SQ SCH ×4 (08:10→21:10)
[2018-07-19] MEDS: Ciprofloxacin 500 MG Tablet PO SCH ×2 (08:17→21:10)
[2018-07-19] MEDS: Lactobacillus Acidophilus/L. Spores Tablet PO SCH ×3 (08:17→17:06)
[2018-07-19] MEDS: Senna/Docusate Sodium 8.6/50 MG Tablet PO SCH ×2 (08:18→21:13)
--- NOTE | 2018-07-19 08:42 | P.PNNEU ---
Subjective Subjective Comments: Denies any headache any new weakness chest pain or dyspnea. Asking when she can go home Active Medications: Active Medications Hydrocodone Bitart/Acetaminophen (Sprakers 5/325) 1 tab PO Q6H PRN PRN Reason: Pain 5-10 Last Admin: 07/18/18 22:23 Dose: 1 tab Al Hydroxide/Mg Hydroxide (Milk Of Magnesia Liq) 30 ml PO Q12H PRN PRN Reason: Mild Constipation Bisacodyl (Dulcolax Supp) 10 mg RECTAL DAILY PRN PRN Reason: SEVERE CONSITIPATION Ciprofloxacin HCl (Cipro) 500 mg PO Q12HR [facility] Last Admin: 07/19/18 08:17 Dose: 500 mg Clopidogrel Bisulfate (Plavix) 75 mg PO DAILY [facility] Last Admin: 07/19/18 08:18 Dose: 75 mg Dextrose (D50w Vial) 50 ml IV.PUSH UNSCH PRN PRN Reason: PER HYPOGLYCEMIA PROTOCOL Last Admin: 07/15/18 21:30 Dose: 50 ml Glucagon (Glucagon Inj) 1 mg OTHER PRN PRN PRN Reason: for Hypoglycemia Protocol Norepinephrine Bitartrate 4 mg (/ Sodium Chloride) 250 mls @ 7.5 mls/hr IV.SIG TITRATE PRN; Protocol PRN Reason: Per Protocol Dextrose (D5w Inj) 1,000 mls @ 42 mls/hr IV.CONT .[id number] [facility] Last Admin: 07/19/18 01:00 Dose: 42 mls/hr Insulin Aspart (Novolog Insulin Correctional Sugar Inj) 0 unit SQ ACHS [facility]; Protocol Last Admin: 07/19/18 08:10 Dose: Not Given Lactobacillus Acidophilus (Lactinex) 1 tab PO TID [facility] Last Admin: 07/19/18 08:17 Dose: 1 tab Lactulose (Lactulose Liq) 30 ml PO DAILY PRN PRN Reason: SEVERE CONSITIPATION Midodrine (Proamatine) 2.5 mg PO BID@0700,1300 [facility] Last Admin: 07/19/18 06:29 Dose: Not Given Miscellaneous (Pill Splitter) 1 each OTHER UNSCH [facility] Potassium Chloride (Klor-Con 10) 10 meq PO BID [facility] Last Admin: 07/19/18 08:18 Dose: 10 meq Senna/Docusate Sodium (Bernadette-Colace) 1 tab PO BID [facility] Last Admin: 07/19/18 08:18 Dose: Not Given Sennosides (Senokot) 17.2 mg PO Q12H PRN PRN Reason: Moderate Constipation Sodium Chloride (Ns Flush) 2 ml IV.FLUSH PRN PRN PRN Reason: FLUSH AFTER USING IV ACCESS Last Admin: 07/16/18 09:25 Dose: 2 ml Allergies/Adverse Reactions: Allergies Allergy/AdvReac Type Severity Reaction Status Date / Time diatrizoate meglumine Allergy Severe Hives Verified 07/13/18 08:05 gadobenic acid Allergy Severe Hives Verified 07/13/18 08:05 gadodiamide Allergy Severe Hives Verified 07/13/18 08:05 gadoteridol Allergy Severe Hives Verified 07/13/18 08:05 iodixanol Allergy Severe Hives Verified 07/13/18 08:05 iohexol Allergy Severe Hives Verified 07/13/18 08:05 hydrocortisone Allergy Intermediate HIVES Verified 07/13/18 08:05 Review of Systems All other systems reviewed negative except as stated in HPI Physical Exam Vital signs: Vital Signs 07/18/18 12:00 07/18/18 12:10 07/18/18 16:00 Temperature 97.9 F Pulse Rate 105 H 105 H Respiratory Rate 18 16 Blood Pressure 111/53 L Pulse Oximetry 99 07/18/18 22:00 07/19/18 00:15 07/19/18 04:00 Temperature 98.7 F 97.9 F 98 F Pulse Rate 78 80 78 Respiratory Rate 19 20 21 Blood Pressure 125/88 130/84 120/80 Pulse Oximetry 97 96 96 07/19/18 07:00 07/19/18 08:00 Temperature 97.7 F Pulse Rate 123 H Respiratory Rate 12 16 Blood Pressure 110/60 Pulse Oximetry 98 Intake & Output 07/18/18 07/19/18 07/19/18 18:59 06:59 18:59 Intake Total 530 / 530 1650 / 1650 1000 / 1000 Output Total 1300 / 1300 Balance 530 / 530 350 / 350 1000 / 1000 Weight 79 kg Intake: IV 50 / 50 1000 / 1000 1000 / 1000 D5W Inj 1,000 ML @ 42 mls/hr IV 1000 / 1000 .CONT .[id number] [facility] Rx#:[id number] Zosyn 3.375 GM Premix 50 ML @ 50 / 50 100 mls/hr IV.SIG Q8H [facility] Rx#: [id number] Oral 480 / 480 650 / 650 Output: Urine 600 / 600 Urine Amount (Catheter) 700 / 700 Indwelling Temp Sensing 700 / 700 Catheter Other: Date of Last Bowel Movement 07/16/18 07/18/18 07/18/18 # Bowel Movements 1 Narrative: General: Alert, conversant, looks well Head: Atraumatic, tongue is midline Neck: Supple, airway widely patent, no obstructive noises. Lungs: Clear bilaterally, comfortable respiratory pattern, Heart: Regular rate and rhythm Abdomen: Soft, nondistended, no guarding, Extremities: Warm, No edema. Slight skin tear left forearm which is wrapped Neuro: Oriented 3, alert, cooperative, conversant. Speech clear. Articulate follows motor requests. Right lower extremity right foot dorsiflexion weakness which she states is chronic Psych: Pleasant, appropriate - Constitutional no acute distress - Routine HEENT Exam Head: Present: normocephalic Eye: Present: EOMI - Urinary Catheter Management Indwelling Temp Sensing Catheter Cath placed during this visit: yes Reason for continuing: Hourly intake/output Insertion date: 07/13/18 Insertion time: 07:35 Objective Laboratory Results - last 24 hr 07/18/18 07/18/18 07/18/18 06:10 06:10 13:06 WBC RBC Hgb Hct MCV MCH MCHC RDW Plt Count MPV WBC Differential . Diff Scan Auto diff confirmed Platelet Estimate Low L Platelet Morphology Normal Sodium Potassium Chloride Carbon Dioxide Anion Gap BUN Creatinine Estimated GFR POC Glucose 162 H Random Glucose Hemoglobin A1c 7.4 H Calcium Prot Corrected Calcium Total Protein 07/18/18 07/18/18 07/19/18 17:24 21:18 06:30 WBC 11.9 H RBC 2.69 L Hgb 7.9 L Hct 24.2 L MCV 89.9 MCH 29.2 MCHC 32.5 RDW 16.9 Plt Count 53 L D MPV 8.8 WBC Differential Diff Scan Platelet Estimate Platelet Morphology Sodium Potassium Chloride Carbon Dioxide Anion Gap BUN Creatinine Estimated GFR POC Glucose 163 H 142 H Random Glucose Hemoglobin A1c Calcium Prot Corrected Calcium Total Protein 07/19/18 07/19/18 06:30 07:32 WBC RBC Hgb Hct MCV MCH MCHC RDW Plt Count MPV WBC Differential Diff Scan Platelet Estimate Platelet Morphology Sodium 142 Potassium 4.0 Chloride 113 H Carbon Dioxide 18.2 L Anion Gap 11 BUN 19 H Creatinine 1.08 H Estimated GFR 48 L POC Glucose 95 Random Glucose 88 Hemoglobin A1c Calcium 7.2 L* Prot Corrected Calcium 8.7 Total Protein 4.4 L Microbiology 07/13/18 07:45 Aerobic Blood Culture - Final Blood - Peripheral No growth in 5 days Anaerobic Blood Culture - Final No growth in 5 days 07/13/18 07:45 Aerobic Blood Culture - Final Blood - Peripheral No growth in 5 days Anaerobic Blood Culture - Final No growth in 5 days Review/Management - Diagnosis (1) Pacemaker Code(s): Z95.0 - Presence of cardiac pacemaker Status: Acute Current Visit: Yes (2) Diabetic peripheral neuropathy Code(s): E11.42 - Type 2 diabetes mellitus with diabetic polyneuropathy Status : Acute Current Visit: Yes (3) Altered mental status Code(s): R41.82 - Altered mental status, unspecified Status: Acute Current Visit: Yes (4) Sepsis Code(s): A41.9 - Sepsis, unspecified organism Status: Acute Current Visit: Yes (5) Hypoglycemia Code(s): E16.2 - Hypoglycemia, unspecified Status: Acute Current Visit: Yes (6) Right carotid artery occlusion Code(s): I65.21 - Occlusion and stenosis of right carotid artery Status: Acute Current Visit: Yes - Review/Management Plan: Send clear for episode of speech impairment and weakness is more related to possible developing sepsis picture, hypoglycemia versus a TIA. Carotid ultrasound demonstrating a right carotid occlusion and left carotid 60% stenosis. She likely had a hypo-perfusion related TIA. She has a pacemaker she is not a candidate for an MRI. With her elevated creatinine CTAs would be difficult to achieve without compromising kidney function At high risk for intervention of the left carotid medical management Recommendations Neurologically stable Blood pressure improved. On Midodrine: Added yesterday Hydration Wound care evaluation PT Discharge planning, outpatient follow-up in 1-2 weeks No driving Should check orthostatic blood pressure at home sitting and standing Discussed with RN (3) Altered mental status Qualifiers: Altered mental status type: unspecified Qualified Code(s): R41.82 - Altered mental status, unspecified (4) Sepsis Qualifiers: Sepsis type: sepsis due to unspecified organism Qualified Code(s): A41.9 - Sepsis, unspecified organism
--- NOTE | 2018-07-19 11:10 | P.PNIM ---
Subjective Interval history: Pt seen and examined. Wants to be able to go home. States she is weak and needs help feeding herself. Doesn't want to go to rehab or SNF. Has a powered chair at home. Denies CP or SOB. Arms and feet are swollen. Neurologically no new changes. Feels like she is thinking clearly. Physical Exam Vital signs: Vital Signs 07/18/18 12:00 07/18/18 12:10 07/18/18 16:00 Temperature 97.9 F Pulse Rate 105 H 105 H Respiratory Rate 18 16 Blood Pressure 111/53 L Pulse Oximetry 99 07/18/18 22:00 07/19/18 00:15 07/19/18 04:00 Temperature 98.7 F 97.9 F 98 F Pulse Rate 78 80 78 Respiratory Rate 19 20 21 Blood Pressure 125/88 130/84 120/80 Pulse Oximetry 97 96 96 07/19/18 07:00 07/19/18 08:00 07/19/18 09:00 Temperature 97.7 F Pulse Rate 123 H 116 H Respiratory Rate 12 16 Blood Pressure 110/60 Pulse Oximetry 98 Intake & Output 07/18/18 07/19/18 07/19/18 18:59 06:59 18:59 Intake Total 530 / 530 1650 / 1650 1000 / 1000 Output Total 1300 / 1300 Balance 530 / 530 350 / 350 1000 / 1000 Weight 79 kg Intake: IV 50 / 50 1000 / 1000 1000 / 1000 D5W Inj 1,000 ML @ 42 mls/hr IV 1000 / 1000 .CONT .[id number] [facility] Rx#:[id number] Zosyn 3.375 GM Premix 50 ML @ 50 / 50 100 mls/hr IV.SIG Q8H [facility] Rx#: [id number] Oral 480 / 480 650 / 650 Output: Urine 600 / 600 Urine Amount (Catheter) 700 / 700 Indwelling Temp Sensing 700 / 700 Catheter Other: Date of Last Bowel Movement 07/16/18 07/18/18 07/18/18 # Bowel Movements 1 Narrative: GENERAL: Obese elderly female resting in bed in NAD. SKIN: Warm and dry. HEART: Tachycardic with 1/6 JOSÉ MIGUEL. LUNGS: CTAB without wheezes or crackles. ABDOMEN: +BS, soft, NT, ND. EXTREMITIES: UE edema bilaterally with some skin tears and weeping. Hemosiderin deposition under skin of arms/hands. 1+ pitting edema of feet and ankles. NEURO: Awake and alert. - Urinary Catheter Management Indwelling Temp Sensing Catheter Cath placed during this visit: yes Reason for continuing: Other continuation reason Insertion date: 07/13/18 Insertion time: 07:35 Results - Labs CBC & Chem 7: 07/19/18 06:30 07/19/18 06:30 Laboratory Results - last 24 hr 07/18/18 07/18/18 07/18/18 06:10 13:06 17:24 WBC RBC Hgb Hct MCV MCH MCHC RDW Plt Count MPV Sodium Potassium Chloride Carbon Dioxide Anion Gap BUN Creatinine Estimated GFR POC Glucose 162 H 163 H Random Glucose Hemoglobin A1c 7.4 H Calcium Prot Corrected Calcium Total Protein 07/18/18 07/19/18 07/19/18 21:18 06:30 06:30 WBC 11.9 H RBC 2.69 L Hgb 7.9 L Hct 24.2 L MCV 89.9 MCH 29.2 MCHC 32.5 RDW 16.9 Plt Count 53 L D MPV 8.8 Sodium 142 Potassium 4.0 Chloride 113 H Carbon Dioxide 18.2 L Anion Gap 11 BUN 19 H Creatinine 1.08 H Estimated GFR 48 L POC Glucose 142 H Random Glucose 88 Hemoglobin A1c Calcium 7.2 L* Prot Corrected Calcium 8.7 Total Protein 4.4 L 07/19/18 07:32 WBC RBC Hgb Hct MCV MCH MCHC RDW Plt Count MPV Sodium Potassium Chloride Carbon Dioxide Anion Gap BUN Creatinine Estimated GFR POC Glucose 95 Random Glucose Hemoglobin A1c Calcium Prot Corrected Calcium Total Protein Microbiology 07/13/18 07:45 Blood - Peripheral Aerobic Blood Culture - Final No growth in 5 days 07/13/18 07:45 Blood - Peripheral Anaerobic Blood Culture - Final No growth in 5 days 07/13/18 07:45 Blood - Peripheral Aerobic Blood Culture - Final No growth in 5 days 07/13/18 07:45 Blood - Peripheral Anaerobic Blood Culture - Final No growth in 5 days - Imaging Impressions Venous Doppler Study 07/18/18 00:00 CONCLUSION: 1. No evidence of DVT. 2. Superficial thrombosis identified in the left basilic vein. 3. Flow could not be identified in either cephalic vein. Assessment and Plan - Assessment (1) Hyperglycemia Code(s): R73.9 - Hyperglycemia, unspecified Status: Acute (2) Altered mental status Code(s): R41.82 - Altered mental status, unspecified Status: Acute (3) Sepsis Code(s): A41.9 - Sepsis, unspecified organism Status: Acute - Plan 87 year old female with history of prior bioprosthetic mitral valve replacement and prior CHF s/p AICD placement admitted 07/13 initially to critical care service for altered mental status. She was found to be hypoglycemia and septic with hypotension tachycardia, and leukocytosis. CT brain was negative and U/A demonstrated UTI. She was started on broad-spectrum antibiotics, IV fluids, and norepinephrine for pressor support. 1. Sepsis secondary to UTI - Acute septic component resolved - Off pressure support - Lactic acid was never elevated - Urine culture growing Klebsiella - Patient has been treated with IV Zosyn - Change to PO Cipro since sensitive 2. Hypotension, resolved - BPs stable - Off pressors but Midodrine added to keep systolic blood pressure above 100 for cerebral perfusion - Continue Midodrine 3. 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 Continue Plavix - EEG with mild encephalopathy, no signs of seizure activity - Neurology following 4. CHF - 2D echo with EF 50-55% - Pitting edema of feet/ankles - Start Lasix 20 mg daily 5. UE edema and skin tears - Wound care consulted - Doppler U/S showing superficial thrombus of L basilic vein, no evidence of DVT in either arm - Elevate arms 6. Anemia, thrombocytopenia - Hb has been around 7-8 and platelets have been low and dropped to 53 today - Not on heparin, no visible acting bleeding though patient with significant ecchymoses and hemosiderin in her upper extremities - Monitor CBC - Check iron profile, ferritin, LDH, folate, B12, FOBT - Consult hematology for further eval 7. Tachycardia - Reviewed tele - No AFIB - Patient tachycardia since yesterday evening - Has pacemaker, will d/w cardiology who was following earlier in the admission DVT prophylaxis: SCDs Discharge Planning: Consulting heme/onc today for anemia/thrombocytopenia. Pending further work-up patient may be able to go in next couple days. She is clear from a neurologic standpoint. I am hesitant about her decision to go home though since PT recommending SNF/rehab and patient is clearly weak and needing assistance. Case management helping with D/C needs. (2) Altered mental status Qualifiers: Altered mental status type: unspecified Qualified Code(s): R41.82 - Altered mental status, unspecified (3) Sepsis Qualifiers: Sepsis type: sepsis due to unspecified organism Qualified Code(s): A41.9 - Sepsis, unspecified organism
[2018-07-19] MEDS: Furosemide 20 MG Tablet PO SCH (11:52)
[2018-07-19 13:33] LABS: % Iron Saturation 55.2 % (20-50)
[2018-07-19 13:58] LABS: Folate 7.5 ng/mL (3.1-17.5)
--- NOTE | 2018-07-19 14:24 | P.PNWCN ---
Wound Care Nurse Consult Description: Consult for wound management of arm, wound care consult to evaluate bilateral arm edema per telephone order from Hailey Robbins/Dr Genao Communicated with: ROBER Herzog Recommendation: Please follow the Skin & Wound Guidelines for Clinical Staff provided on the unit for skin tears. Wound Care consults are not required for skin tears. Additional information: Patient not seen on for skin tear and weeping to bilateral arm edema. Spoke with ROBER Kwon regarding protocols provided to staff for skin tears.
[2018-07-19] MEDS ORDERED: Cathflo Activase Inj 2 MG Vial I-CATHETER PRN (14:28)
[2018-07-19] MEDS: Metoprolol Tartrate 25 MG Tablet PO SCH ×2 (15:31→21:12)
--- NOTE | 2018-07-20 01:43 | MB ---
cc: Janice Martínez MD DATE: 07/19/2018 REASON FOR CONSULTATION: Consult requested by hospitalist for evaluation of anemia and thrombocytopenia. HISTORY OF PRESENT ILLNESS: Sandie is a pleasant 87-year-old female. The patient has been admitted to the hospital with change in mental status. She was found to have hypoglycemia and her mental status improved with the management of hypoglycemia. She is also admitted for possible sepsis and has been treated with antibiotics. Blood test on admission showed white count 13.5, hemoglobin 8.9, platelet count was 86. Differential count was significant for neutrophilia. There were no immature cells noted. She remains anemic and thrombocytopenic during the admission. Her blood tests today show white count 11.9, hemoglobin 7.9, and platelet count has dropped to 53. I have been asked to see the patient for further evaluation of anemia and thrombocytopenia. The patient denies any previous history of anemia or thrombocytopenia. She denies any bleeding episodes, but she has bruises on both forearms. The rest of the review of system is negative. PAST MEDICAL HISTORY: Diabetes mellitus, atrial fibrillation. PAST SURGICAL HISTORY: ICD defibrillator placement and pacemaker. ALLERGIES: , HYDROCORTISONE, AND DIATRIZOATE. MEDICATIONS: Prior coming to the hospital, 1. Bumex. 2. Calcitriol. 3. Plavix. 4. Glipizide. 5. Losartan. 6. Metoprolol. 7. Omeprazole. 8. Potassium. 9. Crestor. FAMILY HISTORY: No family history of anemia, thrombocytopenia, or leukemia. SOCIAL HISTORY: The patient is a , lives with her daughter. She does not smoke cigarettes, does not drink alcohol. PHYSICAL EXAMINATION: GENERAL: This is a well-developed, elderly white female in no apparent distress. VITAL SIGNS: Temperature 98, heart rate is 101, blood pressure 110/83. HEAD, EYES, EARS, NOSE, AND THROAT: Pupils equal, round, reactive to light and accommodation, extraocular movements intact. Anicteric. No oral lesions noted. No thrush noted. NECK: Supple. No JVD. No masses noted. LUNGS: Clear. No wheezing, rhonchi, or rales. HEART: Irregularly irregular. ABDOMEN: Soft and nontender. No hepatosplenomegaly. No abnormal bowel sounds. No guarding or rigidity noted. EXTREMITIES: No pedal edema. No cyanosis, no clubbing. NEUROLOGIC: Awake, alert, oriented x 3. Sensory and motor seem to be intact. SKIN: Multiple bruises noted on both forearms. LYMPH NODES: No cervical, supraclavicular, or axillary lymphadenopathy noted. BACK: There is no spinal tenderness noted. ASSESSMENT: Persistent anemia and thrombocytopenia with no deficiency of B12 or folate or iron. This is most likely due to some underlying bone marrow pathology such as myelodysplasia or leukemia. PLAN: I have reviewed her available records and I have discussed with the patient and 2 of the daughters at the bedside. We discussed that she has persistent anemia and thrombocytopenia. She wants to go home, but she is very much anemic and most of her symptoms are from the severe anemia. She had a B12, folate, and iron studies checked today, which does not show any deficiency. Based on that, I believe that she has some underlying bone marrow pathology such as myelodysplasia or leukemia. Therefore, I have recommended a bone marrow aspirate and biopsy with interventional radiologist to be done tomorrow. The patient and both daughters have agreed with that. Further recommendations once we have the results of the bone marrow biopsy. Thank you for asking my opinion. MD MILDRED Coronado/griselda/christie , 11:05 PM , 11:18 PM
[2018-07-20 06:05] LABS: Hematocrit 22.1 % (35.0-46.0); Hemoglobin 7.3 gm/dL (11.6-15.3); Mean Corpuscular HGB Conc 32.9 % (32.0-36.0); Mean Corpuscular Hemoglobin 29.2 pg (27.0-34.0); Mean Corpuscular Volume 88.9 fL (80.0-100.0); Mean Platelet Volume 7.7 fL (7.0-11.0); Platelet Count 138 th/mm3 (150-450); Red Blood Count 2.49 mil/mm3 (4.00-5.30); Red Cell Distribution Width 16.7 % (11.6-17.2)
[2018-07-20 06:37] LABS: Carbon Dioxide 18.5 meq/L (21.0-32.0); Potassium 4.3 meq/L (3.5-5.1)
[2018-07-20 06:50] LABS: Total Protein 4.3 g/dL (6.4-8.2)
--- NOTE | 2018-07-20 08:16 | P.PNNEU ---
Subjective Subjective Comments: Denies any syncope, headache vision loss or dyspnea. Active Medications: Active Medications Hydrocodone Bitart/Acetaminophen (Vesta 5/325) 1 tab PO Q6H PRN PRN Reason: Pain 5-10 Last Admin: 07/19/18 23:10 Dose: 1 tab Al Hydroxide/Mg Hydroxide (Milk Of Magnesia Liq) 30 ml PO Q12H PRN PRN Reason: Mild Constipation Alteplase, Recombinant (Cathflo Activase Inj) 2 mg I-CATHETER Q2H PRN PRN Reason: CLOTTED IV ACCESS DEVICE Last Admin: 07/19/18 17:46 Dose: 2 mg Bisacodyl (Dulcolax Supp) 10 mg RECTAL DAILY PRN PRN Reason: SEVERE CONSITIPATION Ciprofloxacin HCl (Cipro) 500 mg PO Q12HR [facility] Last Admin: 07/19/18 21:10 Dose: 500 mg Clopidogrel Bisulfate (Plavix) 75 mg PO DAILY [facility] Last Admin: 07/19/18 08:18 Dose: 75 mg Dextrose (D50w Vial) 50 ml IV.PUSH UNSCH PRN PRN Reason: PER HYPOGLYCEMIA PROTOCOL Last Admin: 07/15/18 21:30 Dose: 50 ml Furosemide (Lasix) 20 mg PO DAILY [facility] Last Admin: 07/19/18 11:52 Dose: 20 mg Glucagon (Glucagon Inj) 1 mg OTHER PRN PRN PRN Reason: for Hypoglycemia Protocol Norepinephrine Bitartrate 4 mg (/ Sodium Chloride) 250 mls @ 7.5 mls/hr IV.SIG TITRATE PRN; Protocol PRN Reason: Per Protocol Insulin Aspart (Novolog Insulin Correctional Sugar Inj) 0 unit SQ ACHS [facility]; Protocol Last Admin: 07/19/18 21:10 Dose: Not Given Lactobacillus Acidophilus (Lactinex) 1 tab PO TID [facility] Last Admin: 07/19/18 17:06 Dose: 1 tab Lactulose (Lactulose Liq) 30 ml PO DAILY PRN PRN Reason: SEVERE CONSITIPATION Metoprolol Tartrate (Lopressor) 12.5 mg PO BID [facility] Last Admin: 07/19/18 21:12 Dose: Not Given Midodrine (Proamatine) 2.5 mg PO BID@0700,1300 [facility] Last Admin: 07/20/18 07:12 Dose: 2.5 mg Miscellaneous (Pill Splitter) 1 each OTHER UNSCH [facility] Potassium Chloride (Klor-Con 10) 10 meq PO BID [facility] Last Admin: 07/19/18 21:10 Dose: 10 meq Senna/Docusate Sodium (Bernadette-Colace) 1 tab PO BID [facility] Last Admin: 07/19/18 21:13 Dose: Not Given Sennosides (Senokot) 17.2 mg PO Q12H PRN PRN Reason: Moderate Constipation Sodium Chloride (Ns Flush) 2 ml IV.FLUSH PRN PRN PRN Reason: FLUSH AFTER USING IV ACCESS Last Admin: 07/16/18 09:25 Dose: 2 ml Allergies/Adverse Reactions: Allergies Allergy/AdvReac Type Severity Reaction Status Date / Time diatrizoate meglumine Allergy Severe Hives Verified 07/13/18 08:05 gadobenic acid Allergy Severe Hives Verified 07/13/18 08:05 gadodiamide Allergy Severe Hives Verified 07/13/18 08:05 gadoteridol Allergy Severe Hives Verified 07/13/18 08:05 iodixanol Allergy Severe Hives Verified 07/13/18 08:05 iohexol Allergy Severe Hives Verified 07/13/18 08:05 hydrocortisone Allergy Intermediate HIVES Verified 07/13/18 08:05 Review of Systems All other systems reviewed negative except as stated in HPI Physical Exam Vital signs: Vital Signs 07/19/18 09:00 07/19/18 11:05 07/19/18 11:46 Temperature 97.7 F Pulse Rate 116 H 131 H 124 H Respiratory Rate 12 Blood Pressure 111/55 L Pulse Oximetry 99 07/19/18 16:00 07/19/18 17:03 07/19/18 20:00 Temperature 98.7 F 98 F Pulse Rate 123 H 108 H 101 H Respiratory Rate 18 18 Blood Pressure 106/55 L 115/83 Pulse Oximetry 98 99 07/19/18 20:02 07/20/18 00:00 07/20/18 00:32 Temperature 97.8 F Pulse Rate 94 H 104 H 99 H Respiratory Rate 18 Blood Pressure 136/58 L Pulse Oximetry 98 07/20/18 04:00 07/20/18 07:00 Temperature 97.7 F Pulse Rate 109 H Respiratory Rate 18 12 Blood Pressure 106/51 L Pulse Oximetry 100 Intake & Output 07/19/18 07/20/18 07/20/18 18:59 06:59 18:59 Intake Total 2240 / 2240 Output Total 350 / 350 Balance 2240 / 2240 -350 / -350 Weight 82.8 kg Intake: IV 1999 D5W Inj 1,000 ML @ 42 mls/hr IV 1000 / 1000 .CONT .[id number] [facility] Rx[facility][id number] Oral 240 / 240 Output: Urine 350 / 350 Other: Date of Last Bowel Movement 07/18/18 07/19/18 Narrative: General: Alert, conversant, looks well Head: Atraumatic, tongue is midline Neck: Supple, Lungs: Clear bilaterally, comfortable respiratory pattern, Heart: Regular rate and rhythm Abdomen: Soft, nondistended, no guarding, Extremities: Warm, No edema. Slight skin tear left forearm which is wrapped Neuro: Oriented 3, alert, cooperative, conversant. Speech clear. Articulate follows motor requests. Right lower extremity right foot dorsiflexion weakness- chronic Psych: Pleasant, appropriate - Constitutional no acute distress - Routine HEENT Exam Head: Present: normocephalic Eye: Present: EOMI - Urinary Catheter Management Indwelling Temp Sensing Catheter Cath placed during this visit: yes Reason for continuing: Other continuation reason Insertion date: 07/13/18 Insertion time: 07:35 Objective Laboratory Results - last 24 hr 07/19/18 07/19/18 07/19/18 06:30 06:30 11:18 WBC RBC Hgb Hct MCV MCH MCHC RDW Plt Count MPV Smear Path Review Sodium Potassium Chloride Carbon Dioxide Anion Gap BUN Creatinine Estimated GFR POC Glucose 97 Random Glucose Calcium Prot Corrected Calcium Iron 34 L TIBC 62 L % Saturation 55.2 H Ferritin 401 H Lactate Dehydrogenase 342 H Total Protein Vitamin B12 1525 H Folate 7.5 07/19/18 07/19/18 07/19/18 16:35 21:19 23:13 WBC RBC Hgb Hct MCV MCH MCHC RDW Plt Count MPV Smear Path Review Sodium Potassium Chloride Carbon Dioxide Anion Gap BUN Creatinine Estimated GFR POC Glucose 85 73 89 Random Glucose Calcium Prot Corrected Calcium Iron TIBC % Saturation Ferritin Lactate Dehydrogenase Total Protein Vitamin B12 Folate 07/20/18 07/20/18 07/20/18 03:28 05:43 05:50 WBC 15.0 H RBC 2.49 L Hgb 7.3 L Hct 22.1 L MCV 88.9 MCH 29.2 MCHC 32.9 RDW 16.7 Plt Count 138 L D MPV 7.7 Smear Path Review Sodium Potassium Chloride Carbon Dioxide Anion Gap BUN Creatinine Estimated GFR POC Glucose 73 110 Random Glucose Calcium Prot Corrected Calcium Iron TIBC % Saturation Ferritin Lactate Dehydrogenase Total Protein Vitamin B12 Folate 07/20/18 05:50 WBC RBC Hgb Hct MCV MCH MCHC RDW Plt Count MPV Smear Path Review Sodium 138 Potassium 4.3 Chloride 111 H Carbon Dioxide 18.5 L Anion Gap 9 BUN 20 H Creatinine 1.14 H Estimated GFR 45 L POC Glucose Random Glucose 126 H Calcium 7.0 L* Prot Corrected Calcium 8.5 Iron TIBC % Saturation Ferritin Lactate Dehydrogenase Total Protein 4.3 L Vitamin B12 Folate Review/Management - Diagnosis (1) Pacemaker Code(s): Z95.0 - Presence of cardiac pacemaker Status: Acute Current Visit: Yes (2) Diabetic peripheral neuropathy Code(s): E11.42 - Type 2 diabetes mellitus with diabetic polyneuropathy Status : Acute Current Visit: Yes (3) Altered mental status Code(s): R41.82 - Altered mental status, unspecified Status: Acute Current Visit: Yes (4) Sepsis Code(s): A41.9 - Sepsis, unspecified organism Status: Acute Current Visit: Yes (5) Hypoglycemia Code(s): E16.2 - Hypoglycemia, unspecified Status: Acute Current Visit: Yes (6) Right carotid artery occlusion Code(s): I65.21 - Occlusion and stenosis of right carotid artery Status: Acute Current Visit: Yes - Review/Management Plan: Send clear for episode of speech impairment and weakness is more related to possible developing sepsis picture, hypoglycemia versus a TIA. Carotid ultrasound demonstrating a right carotid occlusion and left carotid 60% stenosis. She likely had a hypo-perfusion related TIA. She has a pacemaker she is not a candidate for an MRI. With her elevated creatinine CTAs would be difficult to achieve without compromising kidney function At high risk for intervention of the left carotid medical management Recommendations Neurologically stable Say low blood pressure this a.m.; follow Mild hypocalcemia; per medical Being worked up for anemia thrombocytopenia. Possible bone marrow biopsy today Seen by wound care nurse Discharge planning thereafter from neurology and outpatient follow-up (3) Altered mental status Qualifiers: Altered mental status type: unspecified Qualified Code(s): R41.82 - Altered mental status, unspecified (4) Sepsis Qualifiers: Sepsis type: sepsis due to unspecified organism Qualified Code(s): A41.9 - Sepsis, unspecified organism
[2018-07-20] MEDS: Insulin NovoLOG Aspart Correctional Sugar Inj SQ SCH ×4 (10:05→22:10)
[2018-07-20] MEDS: Lactobacillus Acidophilus/L. Spores Tablet PO SCH ×3 (10:11→18:29)
[2018-07-20] MEDS: Ciprofloxacin 500 MG Tablet PO SCH ×2 (10:11→22:07)
[2018-07-20] MEDS: Furosemide 20 MG Tablet PO SCH (10:11)
[2018-07-20] MEDS: Senna/Docusate Sodium 8.6/50 MG Tablet PO SCH ×2 (10:12→22:10)
[2018-07-20] MEDS: Metoprolol Tartrate 25 MG Tablet PO SCH (10:12)
--- NOTE | 2018-07-20 11:14 | P.PNIM ---
Subjective Interval history: Patient seen and examined. Daughter present at the bedside. Patient reports she is feeling okay. Endorses some discomfort when she moves her arms secondary to skin tears which she states this also precludes her from being able to feed herself. She denies chest pain, palpitations, shortness of breath, abdominal pain, nausea, or vomiting. Hematology assess patient yesterday and recommended bone marrow biopsy for evaluation of possible myelodysplasia or leukemia. Unfortunately biopsy was not able to be performed secondary to the patient being on Plavix. Today her heart rate continues to be elevated and her hemoglobin is down to 7.3. She and her daughter agreed to transfusion. Physical Exam Vital signs: Vital Signs 07/19/18 11:46 07/19/18 16:00 07/19/18 17:03 Temperature 97.7 F 98.7 F Pulse Rate 124 H 123 H 108 H Respiratory Rate 12 18 Blood Pressure 111/55 L 106/55 L Pulse Oximetry 99 98 07/19/18 20:00 07/19/18 20:02 07/20/18 00:00 Temperature 98 F 97.8 F Pulse Rate 101 H 94 H 104 H Respiratory Rate 18 18 Blood Pressure 115/83 136/58 L Pulse Oximetry 99 98 07/20/18 00:32 07/20/18 04:00 07/20/18 07:00 Temperature 97.7 F Pulse Rate 99 H 109 H Respiratory Rate 18 12 Blood Pressure 106/51 L Pulse Oximetry 100 07/20/18 08:00 Temperature 98.3 F Pulse Rate 112 H Respiratory Rate 18 Blood Pressure 113/57 L Pulse Oximetry 98 Intake & Output 07/19/18 07/20/18 07/20/18 18:59 06:59 18:59 Intake Total 2240 / 2240 Output Total 350 / 350 Balance 2240 / 2240 -350 / -350 Weight 82.8 kg Intake: IV 1999 / 1999 D5W Inj 1,000 ML @ 42 mls/hr IV 1000 / 1000 .CONT .[id number] [facility] Rx#:[id number] Oral 240 / 240 Output: Urine 350 / 350 Other: Date of Last Bowel Movement 07/18/18 07/19/18 07/20/18 Narrative: GENERAL: Obese elderly female resting in bed in [facility]. SKIN: Warm and dry. HEART: Tachycardic with 1/6 JOSÉ MIGUEL. LUNGS: CTAB without wheezes or crackles. ABDOMEN: +BS, soft, NT, ND. EXTREMITIES: UE edema bilaterally with some skin tears and weeping. Hemosiderin deposition under skin of arms/hands. 1+ pitting edema of feet and ankles. NEURO: Awake and alert. - Urinary Catheter Management Indwelling Temp Sensing Catheter Cath placed during this visit: yes Reason for continuing: Other continuation reason Insertion date: 07/13/18 Insertion time: 07:35 Results - Labs CBC & Chem 7: 07/20/18 05:50 07/20/18 05:50 Laboratory Results - last 24 hr 07/19/18 07/19/18 07/19/18 06:30 06:30 11:18 WBC RBC Hgb Hct MCV MCH MCHC RDW Plt Count MPV Smear Path Review Sodium Potassium Chloride Carbon Dioxide Anion Gap BUN Creatinine Estimated GFR POC Glucose 97 Random Glucose Calcium Prot Corrected Calcium Iron 34 L TIBC 62 L % Saturation 55.2 H Ferritin 401 H Lactate Dehydrogenase 342 H Total Protein Vitamin B12 1525 H Folate 7.5 07/19/18 07/19/18 07/19/18 16:35 21:19 23:13 WBC RBC Hgb Hct MCV MCH MCHC RDW Plt Count MPV Smear Path Review Sodium Potassium Chloride Carbon Dioxide Anion Gap BUN Creatinine Estimated GFR POC Glucose 85 73 89 Random Glucose Calcium Prot Corrected Calcium Iron TIBC % Saturation Ferritin Lactate Dehydrogenase Total Protein Vitamin B12 Folate 07/20/18 07/20/18 07/20/18 03:28 05:43 05:50 WBC 15.0 H RBC 2.49 L Hgb 7.3 L Hct 22.1 L MCV 88.9 MCH 29.2 MCHC 32.9 RDW 16.7 Plt Count 138 L D MPV 7.7 Smear Path Review Sodium Potassium Chloride Carbon Dioxide Anion Gap BUN Creatinine Estimated GFR POC Glucose 73 110 Random Glucose Calcium Prot Corrected Calcium Iron TIBC % Saturation Ferritin Lactate Dehydrogenase Total Protein Vitamin B12 Folate 07/20/18 07/20/18 05:50 08:26 WBC RBC Hgb Hct MCV MCH MCHC RDW Plt Count MPV Smear Path Review Sodium 138 Potassium 4.3 Chloride 111 H Carbon Dioxide 18.5 L Anion Gap 9 BUN 20 H Creatinine 1.14 H Estimated GFR 45 L POC Glucose 95 Random Glucose 126 H Calcium 7.0 L* Prot Corrected Calcium 8.5 Iron TIBC % Saturation Ferritin Lactate Dehydrogenase Total Protein 4.3 L Vitamin B12 Folate Assessment and Plan - Assessment (1) Hyperglycemia Code(s): R73.9 - Hyperglycemia, unspecified Status: Acute (2) Altered mental status Code(s): R41.82 - Altered mental status, unspecified Status: Acute (3) Sepsis Code(s): A41.9 - Sepsis, unspecified organism Status: Acute - Plan 87 year old female with history of prior bioprosthetic mitral valve replacement and prior CHF s/p AICD placement admitted 07/13 initially to critical care service for altered mental status. She was found to be hypoglycemia and septic with hypotension tachycardia, and leukocytosis. CT brain was negative and U/A demonstrated UTI. She was started on broad-spectrum antibiotics, IV fluids, and norepinephrine for pressor support. 07/20: NS bolus 250 ml x 2 for hypotension with improvement. 2 units PRBCs given tachycardia and dropping hemoglobin. Hematology following, bone marrow biopsy could not be done today secondary to Plavix which is being held. Needs to be held for five days. 1. Sepsis secondary to UTI - Acute septic component resolved - Off pressure support - Lactic acid was never elevated - Urine culture growing Klebsiella - Patient has been treated with IV Zosyn - Continue PO Cipro since sensitive 2. Hypotension - Continue midodrine - 250 ml bolus x 2 - Transfuse 2 units 3. 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 Continue Plavix - EEG with mild encephalopathy, no signs of seizure activity - Neurology following - On Plavix but on hold for bone marrow biopsy 4. CHF - 2D echo with EF 50-55% - Pitting edema of feet/ankles - Start Lasix 20 mg daily - Edema likely secondary to low albumin 5. UE edema and skin tears - Doppler U/S showing superficial thrombus of L basilic vein, no evidence of DVT in either arm - Elevate arms - D/W nurse regarding applying dressing over tears and being cautious not to directly put gauze or anything that may stick over them 6. Anemia, thrombocytopenia, leukocytosis - Hb has been around 7-8 and platelets have been low - No visible acting bleeding though patient with significant ecchymoses and hemosiderin in her upper extremities, on Plavix - Monitor CBC - Iron profile with mixed iron deficiency and inflammatory picture - Peripheral smear showing reactive leukocytosis with severe normochromic, normocytic anemia and moderate thrombocytopenia - Heme consulted, planning for bone marrow biopsy but patient needs to be off Plavix for five days 7. Tachycardia - Reviewed tele - No AFIB - Has pacemaker - D/w cardiology recommend treating underlying cause - Transfuse 2 units for anemia DVT prophylaxis: SCDs Discharge Planning: Patient not stable to go home as she is hypotensive and tachycardic and receiving a blood transfusion. Currently being worked up for possible myelodysplasia/leukemia. (2) Altered mental status Qualifiers: Altered mental status type: unspecified Qualified Code(s): R41.82 - Altered mental status, unspecified (3) Sepsis Qualifiers: Sepsis type: sepsis due to unspecified organism Qualified Code(s): A41.9 - Sepsis, unspecified organism
--- NOTE | 2018-07-20 14:38 | P.PNONC ---
Subjective Interval history: Afebrile Patient states she is not sure if she remembers meeting Dr. Martínez yesterday Asking what time her bone marrow biopsy will be Complains of some back pain No bleeding Objective Vital Signs/Intake & Output: Vital Signs 07/19/18 16:00 07/19/18 17:03 07/19/18 20:00 Temperature 98.7 F 98 F Pulse Rate 123 H 108 H 101 H Respiratory Rate 18 18 Blood Pressure 106/55 L 115/83 Pulse Oximetry 98 99 07/19/18 20:02 07/20/18 00:00 07/20/18 00:32 Temperature 97.8 F Pulse Rate 94 H 104 H 99 H Respiratory Rate 18 Blood Pressure 136/58 L Pulse Oximetry 98 07/20/18 04:00 07/20/18 07:00 07/20/18 08:00 Temperature 97.7 F 98.3 F Pulse Rate 109 H 112 H Respiratory Rate 18 12 18 Blood Pressure 106/51 L 113/57 L Pulse Oximetry 100 98 07/20/18 12:00 Temperature 98.6 F Pulse Rate 99 H Respiratory Rate 18 Blood Pressure 92/36 L Pulse Oximetry 100 Intake & Output 07/19/18 07/20/18 07/20/18 18:59 06:59 18:59 Intake Total 2240 / 2240 Output Total 350 / 350 Balance 2240 / 2240 -350 / -350 Weight 182 lb 8.684 oz Intake: IV 1999 / 1999 D5W Inj 1,000 ML @ 42 mls/hr IV 1000 / 1000 .CONT .[id number] [facility] Rx#:[id number] Oral 240 / 240 Output: Urine 350 / 350 Other: Date of Last Bowel Movement 07/18/18 07/19/18 07/20/18 Result Diagrams: 07/20/18 05:50 07/20/18 05:50 Laboratory Results: Laboratory Results - last 24 hr 07/19/18 07/19/18 07/19/18 16:35 21:19 23:13 WBC RBC Hgb Hct MCV MCH MCHC RDW Plt Count MPV Sodium Potassium Chloride Carbon Dioxide Anion Gap BUN Creatinine Estimated GFR POC Glucose 85 73 89 Random Glucose Calcium Prot Corrected Calcium Total Protein Blood Type Antibody Screen MTS Gel Crossmatch 07/20/18 07/20/18 07/20/18 03:28 05:43 05:50 WBC 15.0 H RBC 2.49 L Hgb 7.3 L Hct 22.1 L MCV 88.9 MCH 29.2 MCHC 32.9 RDW 16.7 Plt Count 138 L D MPV 7.7 Sodium Potassium Chloride Carbon Dioxide Anion Gap BUN Creatinine Estimated GFR POC Glucose 73 110 Random Glucose Calcium Prot Corrected Calcium Total Protein Blood Type Antibody Screen MTS Gel Crossmatch 07/20/18 07/20/18 07/20/18 05:50 08:26 11:53 WBC RBC Hgb Hct MCV MCH MCHC RDW Plt Count MPV Sodium 138 Potassium 4.3 Chloride 111 H Carbon Dioxide 18.5 L Anion Gap 9 BUN 20 H Creatinine 1.14 H Estimated GFR 45 L POC Glucose 95 118 H Random Glucose 126 H Calcium 7.0 L* Prot Corrected Calcium 8.5 Total Protein 4.3 L Blood Type Antibody Screen MTS Gel Crossmatch 07/20/18 12:03 WBC RBC Hgb Hct MCV MCH MCHC RDW Plt Count MPV Sodium Potassium Chloride Carbon Dioxide Anion Gap BUN Creatinine Estimated GFR POC Glucose Random Glucose Calcium Prot Corrected Calcium Total Protein Blood Type O Positive Antibody Screen Negative MTS Gel Crossmatch See Detail Culture Results: Microbiology 07/13/18 07:45 Aerobic Blood Culture - Final Blood - Peripheral No growth in 5 days Anaerobic Blood Culture - Final No growth in 5 days 07/13/18 07:45 Aerobic Blood Culture - Final Blood - Peripheral No growth in 5 days Anaerobic Blood Culture - Final No growth in 5 days Medications: Active Medications Generic Name Dose Route Start Last Admin Trade Name Freq PRN Reason Stop Dose Admin Hydrocodone Bitart/Acetaminophen 1 tab 07/13/18 18:00 07/19/18 23:10 Davison 5/325 PO 1 tab Q6H PRN Administration Pain 5-10 Alteplase, Recombinant 2 mg 07/19/18 14:28 07/19/18 17:46 Cathflo Activase Inj I-CATHETER 2 mg Q2H PRN Administration CLOTTED IV ACCESS DEVICE Ciprofloxacin HCl 500 mg 07/18/18 21:00 07/20/18 10:11 Cipro PO 500 mg Q12HR ALEKSANDR Administration Clopidogrel Bisulfate 75 mg 07/15/18 09:45 07/20/18 10:12 Plavix PO Not Given DAILY ALEKSANDR Dextrose 50 ml 07/13/18 09:14 07/15/18 21:30 D50w Vial IV.PUSH 50 ml UNSCH PRN Administration PER HYPOGLYCEMIA PROTOCOL Furosemide 20 mg 07/19/18 11:15 07/20/18 10:11 Lasix PO 20 mg DAILY ALEKSANDR Administration Insulin Aspart 0 unit 07/18/18 17:00 07/20/18 12:04 Novolog Insulin Correctional Sugar Inj SQ Not Given ACHS [facility] Protocol Lactobacillus Acidophilus 1 tab 07/16/18 13:00 07/20/18 10:11 Lactinex PO 1 tab TID ALEKSANDR Administration Metoprolol Tartrate 12.5 mg 07/19/18 14:45 07/20/18 10:12 Lopressor PO 12.5 mg BID ALEKSANDR Administration Midodrine 2.5 mg 07/17/18 13:00 07/20/18 07:12 Proamatine PO 2.5 mg BID@0700,1300 A[facility]AN[facility] Administration Potassium Chloride 10 meq 07/16/18 21:00 07/20/18 10:11 Klor-Con 10 PO 10 meq BID ALEKSANDR Administration Senna/Docusate Sodium 1 tab 07/13/18 21:00 07/20/18 10:12 Bernadette-Colace PO 1 tab BID ALEKSANDR Administration Sodium Chloride 2 ml 07/13/18 06:44 07/16/18 09:25 Ns Flush IV.FLUSH 2 ml PRN PRN Administration FLUSH AFTER USING IV ACCESS Objective Remarks: GENERAL: Chronically ill-appearing elderly female resting in bed in no obvious distress SKIN: Warm and dry. Very thin skin with skin tears to BUE. Some weeping noted. HEAD: Normocephalic. EYES: No scleral icterus. No injection or drainage. NECK: Supple, trachea midline. No JVD or lymphadenopathy. CARDIOVASCULAR: +S1/S2. Tachycardia. 3/6 systolic murmur. RESPIRATORY: Clear anteriorly. Breathing unlabored at rest. GASTROINTESTINAL: Abdomen soft, non-tender, nondistended. EXTREMITIES: Anasarca MUSCULOSKELETAL: Generalized edema NEUROLOGICAL: Confused. Follows commands. Assessment/Plan - Plan 87-year-old female admitted with altered mental status; she had hypoglycemia and possible sepsis on admission and this has been treated. Hematology consulted for anemia and thrombocytopenia. Patient has normal levels of B12, folate and iron levels. 1. Bone marrow biopsy today to look for possible myelodysplasia or leukemia 2. Interestingly her platelets increased from 53,000 yesterday to 138,000 today and I do not see that she received a platelet transfusion. Continue to monitor CBC. - Attending Statement The exam, history, and the medical decision-making described in the above note were completed with the assistance of the mid-level provider. I reviewed and agree with the findings presented. I attest that I had a [id number] encounter with the patient on the same day, and personally performed and documented my assessment and findings in the medical record. Denies any new complaint Platelets are back to normal Still has anemia Bone marrow biopsy was deferred as patient is on Plavix We will discuss with IR regarding new schedule Monitor CBC
[2018-07-20] MEDS ORDERED: Sodium Chlor 0.9% Inj 250 ML IV.SIG ONE ×2 (18:00)
[2018-07-21 08:23] LABS: Hematocrit 29.2 % (35.0-46.0); Hemoglobin 9.6 gm/dL (11.6-15.3); Mean Corpuscular Hemoglobin 29.6 pg (27.0-34.0); Mean Corpuscular Volume 89.7 fL (80.0-100.0); Mean Platelet Volume 7.7 fL (7.0-11.0); Platelet Count 153 th/mm3 (150-450); Red Blood Count 3.26 mil/mm3 (4.00-5.30); Red Cell Distribution Width 15.8 % (11.6-17.2); White Blood Count 15.1 th/mm3 (4.0-11.0)
[2018-07-21 08:46] LABS: Calcium 7.3 mg/dL (8.5-10.1); Carbon Dioxide 19.7 meq/L (21.0-32.0)
[2018-07-21] MEDS: Senna/Docusate Sodium 8.6/50 MG Tablet PO SCH ×2 (09:00→20:24)
[2018-07-21 09:01] LABS: Total Protein 4.7 g/dL (6.4-8.2)
[2018-07-21] MEDS: Insulin NovoLOG Aspart Correctional Sugar Inj SQ SCH ×4 (09:56→20:24)
[2018-07-21] MEDS: Lactobacillus Acidophilus/L. Spores Tablet PO SCH ×3 (09:57→17:15)
[2018-07-21] MEDS: Furosemide 20 MG Tablet PO SCH (09:57)
[2018-07-21] MEDS: Ciprofloxacin 500 MG Tablet PO SCH ×2 (09:57→20:24)
--- NOTE | 2018-07-21 14:34 | P.PNIM ---
Subjective Interval history: Patient reports she is feeling better today. Discussed with daughter at bedside. Patient adamantly refused SNF placement. Physical Exam Vital signs: Vital Signs 07/20/18 15:24 07/20/18 15:33 07/20/18 15:42 Temperature 97.5 F L 97.6 F Pulse Rate 92 H 93 H 94 H Respiratory Rate 16 18 16 Blood Pressure 105/46 L 105/46 L 92/51 L Pulse Oximetry 98 98 99 07/20/18 16:03 07/20/18 16:30 07/20/18 17:02 Temperature 97.7 F 97.8 F Pulse Rate 91 H 91 H 93 H Respiratory Rate 18 16 Blood Pressure 95/48 L 99/60 L Pulse Oximetry 99 99 07/20/18 17:45 07/20/18 17:58 07/20/18 19:04 Temperature 98.1 F 97.5 F L 98.5 F Pulse Rate 95 H 90 98 H Respiratory Rate 16 16 16 Blood Pressure 100/52 L 94/50 L 122/58 L Pulse Oximetry 98 98 98 07/20/18 20:00 07/20/18 22:15 07/21/18 00:00 Temperature 97.6 F 97.3 F L Pulse Rate 94 H 99 H 96 H Respiratory Rate 16 16 Blood Pressure 109/45 L 140/60 135/60 Pulse Oximetry 07/21/18 01:39 07/21/18 04:00 07/21/18 08:00 Temperature 97.9 F 84.8 F L 98 F Pulse Rate 99 H 98 H 102 H Respiratory Rate 15 16 17 Blood Pressure 142/62 H 145/62 H 155/66 H Pulse Oximetry 96 98 99 07/21/18 12:00 Temperature Pulse Rate 98 H Respiratory Rate Blood Pressure Pulse Oximetry Intake & Output 07/20/18 07/21/18 07/21/18 18:59 06:59 18:59 Intake Total 301 / 301 250 / 250 Balance 301 / 301 250 / 250 Weight 84.8 kg Intake: IV 250 / 250 250 / 250 NS Inj 250 ML @ Wide Open IV. 250 / 250 250 / 250 SIG BOLUS ONE Rx#:[id number] Intake (Blood Product) Amt 51 / 51 0 / 0 Rbc As-3 Leukoreduced Unit 51 / 51 [id number] Rbc As-3 Leukoreduced Unit 0 / 0 [id number] Other: Date of Last Bowel Movement 07/20/18 07/20/18 # Incontinent Bowel Movements 3 Narrative: GENERAL: Obese elderly female resting in bed in [facility]. SKIN: Warm and dry. HEART: Normal rate and regular rate with 1/6 JOSÉ MIGUEL. LUNGS: CTAB without wheezes or crackles. ABDOMEN: +BS, soft, NT, ND. EXTREMITIES: UE edema bilaterally with some skin tears and weeping. Hemosiderin deposition under skin of arms/hands. 1+ pitting edema of feet and ankles. NEURO: Awake and alert. - Urinary Catheter Management Indwelling Temp Sensing Catheter Cath placed during this visit: yes Reason for continuing: Other continuation reason Insertion date: 07/13/18 Insertion time: 07:35 Results - Labs CBC & Chem 7: 07/21/18 07:30 07/21/18 07:30 Laboratory Results - last 24 hr 07/20/18 07/20/18 07/20/18 12:03 16:30 19:44 WBC RBC Hgb Hct MCV MCH MCHC RDW Plt Count MPV Sodium Potassium Chloride Carbon Dioxide Anion Gap BUN Creatinine Estimated GFR POC Glucose 110 Random Glucose Calcium Prot Corrected Calcium Total Protein St C. diff Tox Epid 027 Negative C. difficile (PCR) Negative Blood Type O Positive Antibody Screen Negative MTS Gel Crossmatch See Detail 07/20/18 07/21/18 07/21/18 21:49 07:30 07:30 WBC 15.1 H RBC 3.26 L Hgb 9.6 L D Hct 29.2 L MCV 89.7 MCH 29.6 MCHC 33.0 RDW 15.8 Plt Count 153 MPV 7.7 Sodium 141 Potassium 4.0 Chloride 111 H Carbon Dioxide 19.7 L Anion Gap 10 BUN 22 H Creatinine 1.10 H Estimated GFR 47 L POC Glucose 90 Random Glucose 94 Calcium 7.3 L* Prot Corrected Calcium 8.7 [address] Protein [address] C[address] diff Tox Epid 027 C. difficile (PCR) Blood Type Antibody Screen MTS Gel Crossmatch 07/21/18 07/21/18 09:28 11:53 WBC RBC Hgb Hct MCV MCH MCHC RDW Plt Count MPV Sodium Potassium Chloride Carbon Dioxide Anion Gap BUN Creatinine Estimated GFR POC Glucose 90 121 H Random Glucose Calcium Prot Corrected Calcium Total Protein St C. diff Tox Epid 027 C. difficile (PCR) Blood Type Antibody Screen MTS Gel Crossmatch Microbiology 07/20/18 19:44 Stool Occult Blood - Final Hemoccult negative Assessment and Plan - Assessment (1) Hyperglycemia Code(s): R73.9 - Hyperglycemia, unspecified Status: Acute (2) Altered mental status Code(s): R41.82 - Altered mental status, unspecified Status: Acute (3) Sepsis Code(s): A41.9 - Sepsis, unspecified organism Status: Acute - Plan 87 year old female with history of prior bioprosthetic mitral valve replacement and prior CHF s/p AICD placement admitted 07/13 initially to critical care service for altered mental status. She was found to be hypoglycemia and septic with hypotension tachycardia, and leukocytosis. CT brain was negative and U/A demonstrated UTI. She was started on broad-spectrum antibiotics, IV fluids, and norepinephrine for pressor support. Patient's condition improved and she was transferred to the medical floor to the hospitalist service. 1. Sepsis secondary to UTI - Acute septic component resolved - Off pressure support - Lactic acid was never elevated - Urine culture growing Klebsiella - Patient has been treated with IV Zosyn - Continue PO Cipro for 1 more day. 2. Hypotension -Resolved. Continue midodrine 3. 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 Continue Plavix - EEG with mild encephalopathy, no signs of seizure activity - Neurology following - On Plavix but on hold for bone marrow biopsy 4. CHF - 2D echo with EF 50-55% - Pitting edema of feet/ankles -Continue Lasix 20 mg daily - Edema likely secondary to low albumin 5. UE edema and skin tears - Doppler U/S showing superficial thrombus of L basilic vein, no evidence of DVT in either arm - Elevate arms 6. Anemia, thrombocytopenia, leukocytosis -Status post 2 units of PRBC transfusion. - No visible acting bleeding though patient with significant ecchymoses and hemosiderin in her upper extremities, on Plavix - Monitor CBC - Iron profile with mixed iron deficiency and inflammatory picture - Peripheral smear showing reactive leukocytosis with severe normochromic, normocytic anemia and moderate thrombocytopenia - Heme consulted, planning for bone marrow biopsy but patient needs to be off Plavix for five days 7. Tachycardia -Improved - Has pacemaker - D/w cardiology recommend treating underlying cause -Status post transfusion for anemia. DVT prophylaxis: SCDs Discharge Planning: Patient met criteria for rehab placement. However she adamantly refused. Awaiting further input from hematology regarding bone marrow biopsy. She will at least need home health. Will need / supervision. Discussed with her daughter at bedside. She will try to make arrangements with family. (2) Altered mental status Qualifiers: Altered mental status type: unspecified Qualified Code(s): R41.82 - Altered mental status, unspecified (3) Sepsis Qualifiers: Sepsis type: sepsis due to unspecified organism Qualified Code(s): A41.9 - Sepsis, unspecified organism
--- NOTE | 2018-07-21 16:23 | P.PNONC ---
Subjective Interval history: Patient lying in bed, currently getting cleaned up. She has no complaints at this time. Patient awaiting bone marrow biopsy, this is been delayed due to patient being on Plavix. Plavix currently on hold. Objective Vital Signs/Intake & Output: Vital Signs 07/20/18 16:30 07/20/18 17:02 07/20/18 17:45 Temperature 97.8 F 98.1 F Pulse Rate 91 H 93 H 95 H Respiratory Rate 16 16 Blood Pressure 99/60 L 100/52 L Pulse Oximetry 99 98 07/20/18 17:58 07/20/18 19:04 07/20/18 20:00 Temperature 97.5 F L 98.5 F 97.6 F Pulse Rate 90 98 H 94 H Respiratory Rate 16 16 16 Blood Pressure 94/50 L 122/58 L 109/45 L Pulse Oximetry 98 98 07/20/18 22:15 07/21/18 00:00 07/21/18 01:39 Temperature 97.3 F L 97.9 F Pulse Rate 99 H 96 H 99 H Respiratory Rate 16 15 Blood Pressure 140/60 135/60 142/62 H Pulse Oximetry 96 07/21/18 04:00 07/21/18 08:00 07/21/18 12:00 Temperature 84.8 F L 98 F 97.5 F L Pulse Rate 98 H 102 H 101 H Respiratory Rate 16 17 Blood Pressure 145/62 H 155/66 H 120/58 L Pulse Oximetry 98 99 99 Intake & Output 07/20/18 07/21/18 07/21/18 18:59 06:59 18:59 Intake Total 301 / 301 250 / 250 Balance 301 / 301 250 / 250 Weight 84.8 kg Intake: IV 250 / 250 250 / 250 NS Inj 250 ML @ Wide Open IV. 250 / 250 250 / 250 SIG BOLUS ONE Rx#:[id number] Intake (Blood Product) Amt 51 / 51 0 / 0 Rbc As-3 Leukoreduced Unit 51 / 51 [id number] Rbc As-3 Leukoreduced Unit 0 / 0 [id number] Other: Date of Last Bowel Movement 07/20/18 07/20/18 # Incontinent Bowel Movements 3 Result Diagrams: 07/21/18 07:30 07/21/18 07:30 Laboratory Results: Laboratory Results - last 24 hr 07/20/18 07/20/1807/20/18 12:03 16:30 19:44 WBC RBC Hgb Hct MCV MCH MCHC RDW Plt Count MPV Sodium Potassium Chloride Carbon Dioxide Anion Gap BUN Creatinine Estimated GFR POC Glucose 110 Random Glucose Calcium Prot Corrected Calcium Total Protein St C. diff Tox Epid 027 Negative C. difficile (PCR) Negative Blood Type O Positive Antibody Screen Negative MTS Gel Crossmatch See Detail 07/20/18 07/21/18 07/21/18 21:49 07:30 07:30 WBC 15.1 H RBC 3.26 L Hgb 9.6 L D Hct 29.2 L MCV 89.7 MCH 29.6 MCHC 33.0 RDW 15.8 Plt Count 153 MPV 7.7 Sodium 141 Potassium 4.0 Chloride 111 H Carbon Dioxide 19.7 L Anion Gap 10 BUN 22 H Creatinine 1.10 H Estimated GFR 47 L POC Glucose 90 Random Glucose 94 Calcium 7.3 L* Prot Corrected Calcium 8.7 [address] Protein [address] C[address] diff Tox Epid 027 C. difficile (PCR) Blood Type Antibody Screen MTS Gel Crossmatch 07/21/18 07/21/18 09:28 11:53 WBC RBC Hgb Hct MCV MCH MCHC RDW Plt Count MPV Sodium Potassium Chloride Carbon Dioxide Anion Gap BUN Creatinine Estimated GFR POC Glucose 90 121 H Random Glucose Calcium Prot Corrected Calcium Total Protein St C. diff Tox Epid 027 C. difficile (PCR) Blood Type Antibody Screen MTS Gel Crossmatch Culture Results: Microbiology 07/20/18 19:44 Occult Blood - Final Stool Hemoccult negative Medications: Active Medications Generic Name Dose Route Start Last Admin Trade Name Freq PRN Reason Stop Dose Admin Hydrocodone Bitart/Acetaminophen 1 tab 07/13/18 18:00 07/21/18 06:45 Clyde 5/325 PO 1 tab Q6H PRN Administration Pain 5-10 Alteplase, Recombinant 2 mg 07/19/18 14:28 07/19/18 17:46 Cathflo Activase Inj I-CATHETER 2 mg Q2H PRN Administration CLOTTED IV ACCESS DEVICE Ciprofloxacin HCl 500 mg 07/18/18 21:00 07/21/18 09:57 Cipro PO 500 mg Q12HR ALEKSANDR Administration Clopidogrel Bisulfate 75 mg 07/15/18 09:45 07/20/18 10:12 Plavix PO Not Given DAILY ALEKSANDR Dextrose 50 ml 07/13/18 09:14 07/15/18 21:30 D50w Vial IV.PUSH 50 ml UNSCH PRN Administration PER HYPOGLYCEMIA PROTOCOL Furosemide 20 mg 07/19/18 11:15 07/21/18 09:57 Lasix PO 20 mg DAILY ALEKSANDR Administration Insulin Aspart 0 unit 07/18/18 17:00 07/21/18 09:56 Novolog Insulin Correctional Sugar Inj SQ Not Given ACHS ALEKSANDR Protocol Lactobacillus Acidophilus 1 tab 07/16/18 13:00 07/21/18 12:29 Lactinex PO 1 tab TID ALEKSANDR Administration Metoprolol Tartrate 12.5 mg 07/19/18 14:45 07/20/18 10:12 Lopressor PO 12.5 mg BID ALEKSANDR Administration Midodrine 2.5 mg 07/17/18 13:00 07/21/18 06:44 Proamatine PO 2.5 mg BID@0700,1300 ALEKSANDR Administration Potassium Chloride 10 meq 07/16/18 21:00 07/21/18 09:56 Klor-Con 10 PO 10 meq BID ALEKSANDR Administration Senna/Docusate Sodium 1 tab 07/13/18 21:00 07/20/18 22:10 Bernadette-Colace PO Not Given BID ALEKSANDR Sodium Chloride 2 ml 07/13/18 06:44 07/16/18 09:25 Ns Flush IV.FLUSH 2 ml PRN PRN Administration FLUSH AFTER USING IV ACCESS Objective Remarks: GENERAL: Chronically ill-appearing elderly female, lying in bed, no acute distress. SKIN: Warm and dry. Very thin skin with skin tears to BUE. 2 skin tears to right upper arm, one anterior and one posterior. HEAD: Normocephalic. EYES: No scleral icterus. No injection or drainage. NECK: Supple, trachea midline. No JVD or lymphadenopathy. CARDIOVASCULAR: +S1/S2. 3/6 systolic murmur. RESPIRATORY: Clear anteriorly. Non-labored. GASTROINTESTINAL: Abdomen soft, non-tender, nondistended. EXTREMITIES: Anasarca MUSCULOSKELETAL: Decreased muscle tone. NEUROLOGICAL: Alert, following commands. Assessment/Plan - Plan 87-year-old female admitted with altered mental status; she had hypoglycemia and possible sepsis on admission and this has been treated. Hematology consulted for anemia and thrombocytopenia. Patient has normal levels of B12, folate and iron levels. 1. Bone marrow biopsy, pending. Delayed due to patient being on Plavix. Plavix now on hold. 2. Her platelets have continued to increase to a normal level. 3. Skin tears to right upper extremity. Per auto carrier driver nurse has evaluated them and recommended absorption pad under arm for oozing. The skin tears appear to be large enough that they may require a dressing to cover the wound. - Attending Statement The exam, history, and the medical decision-making described in the above note were completed with the assistance of the mid-level provider. I reviewed and agree with the findings presented. I attest that I had a [id number] encounter with the patient on the same day, and personally performed and documented my assessment and findings in the medical record. Patient has a skin tear on both upper arms which is weeping. Bone marrow biopsy has been deferred due to Plavix which is now on hold Platelets are now normal Hemoglobin improved after she had received blood transfusion yesterday Continue to monitor CBC Case discussed with patient's RN
[2018-07-22 07:37] LABS: Baso % (Auto) 0.1 % (0.0-2.0); Eos # (Auto) 0.2 th/mm3 (0.0-0.4); Eos % (Auto) 1.6 % (0.0-4.0); Hematocrit 27.3 % (35.0-46.0); Hemoglobin 9.2 gm/dL (11.6-15.3); Lymph # (Auto) 1.4 th/mm3 (1.0-4.8); Lymph % (Auto) 9.9 % (9.0-44.0); Mean Corpuscular HGB Conc 33.9 % (32.0-36.0); Mean Corpuscular Hemoglobin 29.9 pg (27.0-34.0); Mean Corpuscular Volume 88.3 fL (80.0-100.0); Mean Platelet Volume 7.4 fL (7.0-11.0); Mono # (Auto) 0.7 th/mm3 (0.0-0.9); Mono % (Auto) 4.9 % (0.0-8.0); Neut # (Auto) 12.2 th/mm3 (1.8-7.7); Neut % (Auto) 83.5 % (16.0-70.0); Platelet Count 161 th/mm3 (150-450); Red Blood Count 3.09 mil/mm3 (4.00-5.30); Red Cell Distribution Width 15.9 % (11.6-17.2); White Blood Count 14.6 th/mm3 (4.0-11.0)
[2018-07-22] MEDS: Insulin NovoLOG Aspart Correctional Sugar Inj SQ SCH ×4 (08:05→20:29)
[2018-07-22 08:06] LABS: Alanine Aminotransferase 19 U/L (10-53); Albumin 1.3 g/dL (3.4-5.0); Anion Gap 11 meq/L (5-15); Aspartate Aminotransferase 24 U/L (15-37); Calcium 7.5 mg/dL (8.5-10.1); Carbon Dioxide 19.8 meq/L (21.0-32.0); Chloride 111 meq/L (98-107); Glomerular Filtration Rate 53 mL/min (>89); Glucose,Random 73 mg/dL (74-106); Sodium 142 meq/L (136-145)
[2018-07-22 08:10] LABS: Alkaline Phosphatase 159 U/L (45-117); Blood Urea Nitrogen 21 mg/dL (7-18); Total Protein 4.9 g/dL (6.4-8.2)
[2018-07-22] MEDS: Furosemide 20 MG Tablet PO SCH (09:03)
[2018-07-22] MEDS: Ciprofloxacin 500 MG Tablet PO SCH ×2 (09:03→20:27)
[2018-07-22] MEDS: Lactobacillus Acidophilus/L. Spores Tablet PO SCH ×3 (09:03→17:25)
[2018-07-22] MEDS: Senna/Docusate Sodium 8.6/50 MG Tablet PO SCH ×2 (09:04→20:27)
[2018-07-22 09:49] LABS: Lymphocytes 5 % (9-44); Monocytes 6 % (0-8); Myelocytes 2 % (0-0)
[2018-07-22 09:50] LABS: Ovalocytes 1+; Platelet Estimate Normal (Normal); Platelet Morphology Normal (Normal); Toxic Granulation 1+
--- NOTE | 2018-07-22 16:33 | P.DS ---
Date of admission: 07/13/18 09:14 Primary care physician: UNKNOWN Brief History from admission: HPI from the admitting physician: This is an 87yF with history of prior bioprosthetic mitral valve replacement and prior CHF s/p AICD placement who presents with altered mental status from home. per report she had similar episode 3 days ago and was found to be hypoglycemic, but this resolved and she refused EMS transport to the hospital. today she was transported to ER where she had a glucose of 48 and given iv dextrose. after this her mentation improved. however, she was hypotensive and tachycardic. CT brain negative for acute findings. wbc demonstrates leukocytosis and patient febrile. u/a grossly positive and urine appears purulent. started on empiric abx. given gentle ivf hydration given history of CHF and started on norepinephrine for pressor support. per report from Dr. Melgar, her most recent echo had EF 50%. ROS essentially unobtainable due to her altered mentation, although she is alert enough to deny chest pain, shortness of breath. Patient update on day of discharge: Patient reports she is feeling okay. She is anxious to go home. Again adamantly refused SNF placement. Discussed the case with Dr. Martínez. IR will plan on doing the bone marrow biopsy outpatient on Thursday. DS: Diagnosis - Discharge Diagnosis (1) Hyperglycemia Status: Acute (2) Altered mental status Status: Acute (3) Sepsis Status: Acute (4) Debility Status: Acute (5) Sepsis secondary to UTI Status: Acute DS: Summary Hospital Course: 87 year old female with history of prior bioprosthetic mitral valve replacement and prior CHF s/p AICD placement admitted 07/13 initially to critical care service for altered mental status. She was found to be hypoglycemia and septic with hypotension tachycardia, and leukocytosis. CT brain was negative and U/A demonstrated UTI. She was started on broad-spectrum antibiotics, IV fluids, and norepinephrine for pressor support. Patient's condition improved and she was transferred to the medical floor to the hospitalist service. Treatment course detailed below: 1. Sepsis secondary to UTI - Acute septic component resolved - Off pressure support - Lactic acid was never elevated - Urine culture growing Klebsiella - Patient has been treated with IV Zosyn and completed treatment with Cipro. 2. Hypotension -Resolved. Resume home medication for hypertension. 3. 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 Continue Plavix - EEG with mild encephalopathy, no signs of seizure activity - Neurology following - On Plavix but on hold for bone marrow biopsy 4. CHF - 2D echo with EF 50-55% - Pitting edema of feet/ankles -Continue Lasix 20 mg daily - Edema likely secondary to low albumin 5. UE edema and skin tears - Doppler U/S showing superficial thrombus of L basilic vein, no evidence of DVT in either arm - Elevate arms 6. Anemia, thrombocytopenia, leukocytosis -Status post 2 units of PRBC transfusion. - No visible acting bleeding though patient with significant ecchymoses and hemosiderin in her upper extremities, on Plavix - Iron profile with mixed iron deficiency and inflammatory picture - Peripheral smear showing reactive leukocytosis with severe normochromic, normocytic anemia and moderate thrombocytopenia - Heme consulted on the patient. Plavix was put on hold for bone marrow biopsy. Her blood count significantly improved. The biopsy will be done outpatient. I discussed the case with director of archives, Dr. Martínez on the day of discharge. 7. Debility/physical deconditioning: The patient remains severely debilitated, mostly bedbound requiring a lot of assistance for ADL. She adamantly refused SNF placement. The patient's daughter will stay at home to care for her. She is discharged with home health and physical therapy. - Time Spent with Patient Total time spent providing and/or coordinating discharge services: Greater than 30 minutes - Quality: VTE Deep Vein Thrombosis/Pulmonary Embolism Present on Admission: No Exam Vital signs: Vital Signs 07/21/18 20:00 07/22/18 00:00 07/22/18 04:00 Temperature 97.9 F 97.8 F 97.8 F Pulse Rate 98 H 97 H 74 Respiratory Rate 18 18 18 Blood Pressure 138/60 132/63 174/81 H Pulse Oximetry 97 96 95 07/22/18 08:00 07/22/18 12:00 Temperature 97.7 F 98.1 F Pulse Rate 95 H 106 H Respiratory Rate 18 18 Blood Pressure 180/72 H 134/63 Pulse Oximetry 99 97 Intake & Output 07/21/18 07/22/18 07/22/18 18:59 06:59 18:59 Weight 83.9 kg Other: # Voids 4 Date of Last Bowel Movement 07/20/18 07/21/18 # Incontinent Bowel Movements 0 Narrative: GENERAL: Obese elderly female resting in bed in [facility]. SKIN: Warm and dry. HEART: Normal rate and regular rate with 1/6 JOSÉ MIGUEL. LUNGS: CTAB without wheezes or crackles. ABDOMEN: +BS, soft, NT, ND. EXTREMITIES: UE edema bilaterally with some skin tears and weeping. Hemosiderin deposition under skin of arms/hands. 1+ pitting edema of feet and ankles. NEURO: Awake and alert. Results Procedures completed during hospitalization: None Labs on day of discharge: Labs from last 24 hours 07/22/18 07/22/18 07/22/18 12:17 08:51 07:00 WBC RBC Hgb Hct MCV MCH MCHC RDW Plt Count MPV Prelim Diff (Auto) Neut % (Auto) Lymph % (Auto) [place] % (Auto) Eos % (Auto) Baso % (Auto) Neut # (Auto) Lymph # (Auto) [place] # (Auto) Eos # (Auto) Baso # (Auto) WBC Differential Seg Neuts % (Manual) Band Neuts % (Manual) Lymphocytes % (Manual) Monocytes % (Manual) Myelocytes % (Man) Abs Neuts (Manual) Differential Comment Toxic Granulation Platelet Estimate Platelet Morphology Ovalocytes Sodium 142 Potassium 4.0 Chloride 111 H Carbon Dioxide 19.8 L Anion Gap 11 BUN 21 H Creatinine 0.99 Estimated GFR 53 L POC Glucose 187 H 74 Random Glucose 73 L Calcium 7.5 L Total Bilirubin 0.5 AST 24 ALT 19 Alkaline Phosphatase 159 H Total Protein 4.9 L Albumin 1.3 L 07/22/18 07/21/18 07/21/18 07:00 20:23 17:25 WBC 14.6 H RBC 3.09 L Hgb 9.2 L Hct 27.3 L MCV 88.3 MCH 29.9 MCHC 33.9 RDW 15.9 Plt Count 161 MPV 7.4 Prelim Diff (Auto) Slide review pending Neut % (Auto) 83.5 H Lymph % (Auto) 9.9 [place] % (Auto) 4.9 Eos % (Auto) 1.6 Baso % (Auto) 0.1 Neut # (Auto) 12.2 H Lymph # (Auto) 1.4 [place] # (Auto) 0.7 Eos # (Auto) 0.2 Baso # (Auto) 0.0 WBC Differential Manual diff final Seg Neuts % (Manual) 82 H Band Neuts % (Manual) 5 Lymphocytes % (Manual) 5 L Monocytes % (Manual) 6 Myelocytes % (Man) 2 H Abs Neuts (Manual) 13.0 H Differential Comment . Toxic Granulation 1+ H Platelet Estimate Normal Platelet Morphology Normal Ovalocytes 1+ H Sodium Potassium Chloride Carbon Dioxide Anion Gap BUN Creatinine Estimated GFR POC Glucose 127 H 98 Random Glucose Calcium Total Bilirubin AST ALT Alkaline Phosphatase Total Protein Albumin - Impressions ITS Impressions Head CT 07/13/18 06:44 CONCLUSION: 1. Patchy white matter disease likely related to chronic microvascular ischemic disease. 2. No hemorrhage. 3. Report called by Dr. Méndez to Dr. Cox at 7:09 AM on July 13, 2018. Carotid Doppler Study 07/13/18 09:21 CONCLUSION: 1. 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 2. Left Internal Carotid Artery: Focal moderate to severe stenosis of the distal common carotid arteries secondary to noncalcified plaque. Moderate, 50-69 %, stenosis of the internal carotid artery. Consider CTA examination for better evaluation. Patient may be a candidate for carotid intervention given the tandem lesions and contralateral occlusion. Abdomen/Bladder Ultrasound 07/13/18 11:42 CONCLUSION: 1. No acute findings. Small bilateral renal cysts. No hydronephrosis. Bladder decompressed by Martel. Chest X-Ray 07/13/18 12:17 CONCLUSION: Right-sided port placement with tip in right atrium. No pneumothorax. Venous Doppler Study 07/18/18 00:00 CONCLUSION: 1. No evidence of DVT. 2. Superficial thrombosis identified in the left basilic vein. 3. Flow could not be identified in either cephalic vein. Discharge Plan - Discharge Disposition Patient Disposition: W/Home Health Service - Discharge Condition Condition: Fair - Discharge Order Discharge Orders: Discharge Order (Routine); Ordered 07/22/18 Ordered By: Anne Finn - Physicians Team Primary Care Provider: UNKNOWN, Attending Provider: Anne Finn Other Providers: Francisco Melgar DO ; Deep Alvarado MD ; Elizabet Martínez MD
[2018-07-23] MEDS: Senna/Docusate Sodium 8.6/50 MG Tablet PO SCH (10:26)
[2018-07-23] MEDS: Furosemide 20 MG Tablet PO SCH (10:26)
[2018-07-23] MEDS: Ciprofloxacin 500 MG Tablet PO SCH (10:26)
[2018-07-23] MEDS: Lactobacillus Acidophilus/L. Spores Tablet PO SCH ×2 (10:26→13:07)
[2018-07-23] MEDS: Insulin NovoLOG Aspart Correctional Sugar Inj SQ SCH ×3 (10:26→17:00)
--- NOTE | 2018-07-23 14:29 | P.DCO ---
- Diagnosis (1) Altered mental status - Physical Therapy Order: Evaluate and treat, Strength and gait training - Home Health Nursing Order: Medical education, Nursing assessment with vital signs - Certification I have seen patient Sandie Ferrer on 07/23/18. My clinical findings support the need for the requested home health care services because: Limited mobility due to disease progression, Deconditioned with increased weakness, High risk of falls I certify that my clinical findings support that this patient is homebound because: Unsafe to leave home unassisted, Non-ambulatory: confined to bed or chair (1) Altered mental status Qualifiers: Altered mental status type: unspecified Qualified Code(s): R41.82 - Altered mental status, unspecified
--- NOTE | 2018-07-23 14:30 | P.PNIM ---
Subjective Interval history: Patient discharge yesterday. Case management was not able to get all the family. Planning for discharge today. Physical Exam Vital signs: Vital Signs 07/22/18 16:00 07/22/18 20:00 07/22/18 21:13 Temperature 97.6 F 98.1 F Pulse Rate 114 H 120 H Respiratory Rate 18 22 18 Blood Pressure 127/59 L 127/68 Pulse Oximetry 99 99 07/23/18 00:00 07/23/18 04:00 07/23/18 08:00 Temperature 97.5 F L 97.6 F 98.0 F Pulse Rate 107 H 101 H 99 H Respiratory Rate 22 22 17 Blood Pressure 103/55 L 113/54 L 117/57 L Pulse Oximetry 98 98 99 07/23/18 12:00 Temperature 98.7 F Pulse Rate 107 H Respiratory Rate 20 Blood Pressure 151/65 H Pulse Oximetry 100 Intake & Output 07/22/18 07/23/18 07/23/18 18:59 06:59 18:59 Intake Total 221 / 221 Output Total 500 / 500 Balance -279 / -279 Weight 83.3 kg Intake: Oral 221 / 221 Output: Urine 500 / 500 Other: Date of Last Bowel Movement 07/22/18 07/22/18 # Incontinent Bowel Movements 0 Narrative: GENERAL: Obese elderly female resting in bed in [facility]. SKIN: Warm and dry. HEART: Normal rate and regular rate with 1/6 JOSÉ MIGUEL. LUNGS: CTAB without wheezes or crackles. ABDOMEN: +BS, soft, NT, ND. EXTREMITIES: UE edema bilaterally with some skin tears and weeping. Hemosiderin deposition under skin of arms/hands. 1+ pitting edema of feet and ankles. NEURO: Awake and alert. - Urinary Catheter Management Indwelling Temp Sensing Catheter Cath placed during this visit: yes Reason for continuing: Not indwelling catheter Insertion date: 07/13/18 Insertion time: 07:35 Results - Labs CBC & Chem 7: 07/22/18 07:00 07/22/18 07:00 Laboratory Results - last 24 hr 07/22/18 07/22/18 07/23/18 17:12 20:24 09:09 POC Glucose 145 H 200 H 158 H 07/23/18 13:06 POC Glucose 197 H - Procedures None Assessment and Plan - Assessment (1) Altered mental status Code(s): R41.82 - Altered mental status, unspecified Status: Acute (2) Debility Code(s): R53.81 - Other malaise Status: Acute (3) Sepsis secondary to UTI Code(s): A41.9 - Sepsis, unspecified organism; N39.0 - Urinary tract infection, site not specified Status: Acute (4) Hyperglycemia Code(s): R73.9 - Hyperglycemia, unspecified Status: Acute (5) Sepsis Code(s): A41.9 - Sepsis, unspecified organism Status: Acute - Plan 87 year old female with history of prior bioprosthetic mitral valve replacement and prior CHF s/p AICD placement admitted 07/13 initially to critical care service for altered mental status. She was found to be hypoglycemia and septic with hypotension tachycardia, and leukocytosis. CT brain was negative and U/A demonstrated UTI. She was started on broad-spectrum antibiotics, IV fluids, and norepinephrine for pressor support. Patient's condition improved and she was transferred to the medical floor to the hospitalist service. Treatment course detailed below: 1. Sepsis secondary to UTI - Acute septic component resolved - Off pressure support - Lactic acid was never elevated - Urine culture growing Klebsiella - Patient has been treated with IV Zosyn and completed treatment with Cipro. 2. Hypotension -Resolved. Resume home medication for hypertension. 3. 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 Continue Plavix - EEG with mild encephalopathy, no signs of seizure activity - Neurology following - On Plavix but on hold for bone marrow biopsy 4. CHF - 2D echo with EF 50-55% - Pitting edema of feet/ankles -Continue Lasix 20 mg daily - Edema likely secondary to low albumin 5. UE edema and skin tears - Doppler U/S showing superficial thrombus of L basilic vein, no evidence of DVT in either arm - Elevate arms 6. Anemia, thrombocytopenia, leukocytosis -Status post 2 units of PRBC transfusion. - No visible acting bleeding though patient with significant ecchymoses and hemosiderin in her upper extremities, on Plavix - Iron profile with mixed iron deficiency and inflammatory picture - Peripheral smear showing reactive leukocytosis with severe normochromic, normocytic anemia and moderate thrombocytopenia - Heme consulted on the patient. Plavix was put on hold for bone marrow biopsy. Her blood count significantly improved. The biopsy will be done outpatient. I discussed the case with buffer automatic, Dr. Martínez on the day of discharge. 7. Debility/physical deconditioning: The patient remains severely debilitated, mostly bedbound requiring a lot of assistance for ADL. She adamantly refused SNF placement. The patient's daughter will stay at home to care for her. She is discharged with home health and physical therapy. [id number] has been signed in case she needs to be admitted to a [facility] facility from home for rehab. (1) Altered mental status Qualifiers: Altered mental status type: unspecified Qualified Code(s): R41.82 - Altered mental status, unspecified (5) Sepsis Qualifiers: Sepsis type: sepsis due to unspecified organism Qualified Code(s): A41.9 - Sepsis, unspecified organism
== END 2018-07-23 17:30 | disposition home health service (06) ==
LOC: NEPC 06:42 → NEDA 09:14 → N03 12:57 → N05 07-16 20:37
PROVIDERS: ADMIT Family Medicine; ATTEND Family Medicine